=== PATIENT | female | born 1935 | race Caucasian/White ===

== ENCOUNTER 2018-11-18 23:58 | Inpatient (IN) | payer MEDICARE ==
[~2018-11-18] VITALS: Ht 154.9 cm; Wt 98.4 kg
--- NOTE | 2018-11-19 00:20 | NUR ---
BIB FROM HOME. AAOX4. NO RESP DISTRESS NOTED. BROUGHT W/ C/O WEAKNESS AND DIZZYNESS. PT REPORTS FEELING WEAK FOR THE PAST 2 DAYS, DIZZY WITH THE ROOM SPINNING AND PALPITATION. PT WAS REPORTED HYPOTENSIVE WITH LAST BP METAL SHAPING MACHINE OPERATOR 97/44. BP @ 103/47 UPON ASSESSMENT. PT RECEIVING 2ND BAG OF 500ML NS BY EMS. MD AT BEDSIDE FOR EVAL. EKG AT BEDSIDE. IV LINE ALREADY PRESENT UPPON ARRIVAL ON R AC 18G. BLOOD DRAWN AND GIVEN TO DRIVING INSTRUCTOR AT BEDSIDE. TO ER BED 8. PLACED ON MONITOR AND 02 @ 2LPM VIA NC.
[2018-11-19 00:23] LABS: BASOPHILS # (AUTO) 0.1 /CMM (0.0-0.2); BASOPHILS % (AUTO) 1.3 % (0.0-2.0); EOSINOPHILS % (AUTO) 2.3 % (0.0-6.0); HEMATOCRIT 41 % (33-45); HEMOGLOBIN 13.5 g/dL (11.5-14.8); LYMPHOCYTES # (AUTO) 1.6 /CMM (0.8-4.8); LYMPHOCYTES % (AUTO) 15.6 % (20.0-44.0); MEAN CORPUSCULAR HGB CONC 33 g/dl (31.0-36.0); MEAN CORPUSCULAR VOLUME 94 fL (82-100); MONOCYTES % (AUTO) 9.8 % (2.0-12.0); NEUTROPHILS # (AUTO) 7.5 /CMM (1.8-8.9); PLATELET COUNT (AUTO) 209 /CMM (150-450); RED BLOOD CELL COUNT(AUTO) 4.34 MIL/uL (4.0-5.2); WHITE BLOOD COUNT (AUTO) 10.5 K/uL (4.3-11.0)
--- NOTE | 2018-11-19 00:25 | NUR ---
PT BEING WHEELED TO RADILOGY ON [facility]
[2018-11-19] MEDS ORDERED: IV NS 0.9% 1,000 ML BAG IV ONE (00:30)
[2018-11-19 00:46] LABS: CALCIUM, SERUM 8.3 mg/dL (8.5-10.1); CARBON DIOXIDE 23 mmol/L (21-32); CHLORIDE 106 mmol/L (98-107); CREATININE 1.3 mg/dL (0.6-1.3); GLUCOSE 160 mg/dL (74-106); SODIUM SERUM 139 mmol/L (136-145); UREA NITROGEN, BLOOD 27 mg/dL (7-18)
[2018-11-19 00:50] LABS: ALANINE AMINOTRANSFERASE 28 U/L (12-78); ALBUMIN 3.1 g/dL (3.4-5.0); ALKALINE PHOSPHATASE 67 U/L (46-116); ASPARTATE AMINOTRANSFERASE 19 U/L (15-37); BILIRUBIN,DIRECT 0.1 mg/dL (0.0-0.2); BILIRUBIN,TOTAL 0.5 mg/dL (0.2-1.0); TOTAL PROTEIN, SERUM 5.8 g/dL (6.4-8.2)
--- NOTE | 2018-11-19 01:05 | NUR ---
CALLING STEVE RE: RADIOLOGY READ
[2018-11-19] MEDS ORDERED: Z GUARD REMEDY 2 OZ OINT TP PRN (02:00)
[2018-11-19] MEDS ORDERED: ONDANSETRON HCL/PF 4 MG/2 ML VIAL IVP PRN (02:00)
[2018-11-19] MEDS ORDERED: MAG HYDROX/AL HYDROX/SIMETH 30 ML UDC PO PRN (02:00)
--- NOTE | 2018-11-19 02:10 | NUR ---
URINE COLLECTED FROM PT. PT URINATED IN BEDSIDE COMMODE. PT TRANSFERED FROM BED TO COMMODE WITH STAND BY ASSIST. PT NOTED WITH STEADY GAIT. MADE AWARE
--- NOTE | 2018-11-19 02:11 | NUR ---
PT ASSIGNED TO 103
--- NOTE | 2018-11-19 02:13 | NUR ---
CALLED FOR REPORT. NURSE TAKING PT WITH ANOTHER AT THE MOMENT, WILL CALL BACK AGAIN.
--- NOTE | 2018-11-19 02:14 | NUR ---
NO F/C DONE TO PT.
[2018-11-19 02:20] LABS: APPEARANCE,URINE CLEAR (CLEAR); BILIRUBIN,URINE NEGATIVE (NEGATIVE); BLOOD, URINE NEGATIVE Ery/uL (NEGATIVE); COLOR,URINE YELLOW (YELLOW); KETONES,URINE NEGATIVE (NEGATIVE); LEUKOCYTE ESTERASE ,URINE TRACE (NEGATIVE); NITRITE, URINE NEGATIVE (NEGATIVE); PROTEIN,URINE NEGATIVE (NEGATIVE); UGLUCOSE NEGATIVE (NEGATIVE); UROBILINOGEN,URINE 0.2 EU/dL (0.2)
--- NOTE | 2018-11-19 02:22 | NUR ---
REPORT GIVEN TO ALIDA TOSCANO FOR CHRISTA
--- NOTE | 2018-11-19 03:13 | NUR ---
PT TRANSPORTED TO UNIT WITH RN AND EMT AT BEDSIDE W/ ACLS PROTOCOL. NAD DURING TRANSPORT. PT AMBULATED WITH SBA TO BATHROOM UPON ARRIVAL TO UNIT.
[2018-11-19 03:31] LABS: BACTERIA,URINE Few /HPF (None Seen); RBC,URINE 0-2 /HPF (0-2); SQUAMOUS EPITHELIAL CELL,UR Few /HPF (None Seen)
[2018-11-19 04:00] VITALS: BP 181/88
[2018-11-19] MEDS: IV NS 0.9% 1,000 ML IV PRN (04:27)
--- NOTE | 2018-11-19 06:23 | NUR ---
RN NOTES ADMITTED PATIENT ON A STRETCHER FROM ER WITH DIAGNOSIS OF HYPOTENSION. ALERT AND ORIENTED, AMBULATORY BREATHING EVEN AND UNLABORED. O2 AT 2LPM VIA NASAL CANNULA TOLERATING. NO COMPLAINT OF PAIN OR DISCOMFORT. SKIN INTACT. NEEDS ATTENDED. KEPT CLEAN AND DRY. WILL ENDORSE TO AM SHIFT FOR CONTINUITY OF CARE.
[2018-11-19 06:27] LABS: BASOPHILS # (AUTO) 0.1 /CMM (0.0-0.2); BASOPHILS % (AUTO) 0.6 % (0.0-2.0); EOSINOPHILS % (AUTO) 3.1 % (0.0-6.0); HEMATOCRIT 41 % (33-45); HEMOGLOBIN 13.9 g/dL (11.5-14.8); LYMPHOCYTES # (AUTO) 1.5 /CMM (0.8-4.8); LYMPHOCYTES % (AUTO) 17.7 % (20.0-44.0); MEAN CORPUSCULAR HGB CONC 34 g/dl (31.0-36.0); MEAN CORPUSCULAR VOLUME 93 fL (82-100); MONOCYTES # (AUTO) 1.1 /CMM (0.1-1.30); MONOCYTES % (AUTO) 12.7 % (2.0-12.0); NEUTROPHILS # (AUTO) 5.5 /CMM (1.8-8.9); NEUTROPHILS % (AUTO) 65.9 % (43.0-81.0); PLATELET COUNT (AUTO) 161 /CMM (150-450); RED BLOOD CELL COUNT(AUTO) 4.43 MIL/uL (4.0-5.2); WHITE BLOOD COUNT (AUTO) 8.4 K/uL (4.3-11.0)
[2018-11-19 06:43] LABS: CALCIUM, SERUM 8.4 mg/dL (8.5-10.1); CARBON DIOXIDE 28 mmol/L (21-32); CHLORIDE 110 mmol/L (98-107); CREATININE 1.2 mg/dL (0.6-1.3); GLUCOSE 104 mg/dL (74-106); MAGNESIUM 2.1 mg/dL (1.8-2.4); PHOSPHORUS 3.8 mg/dL (2.5-4.9); POTASSIUM 4.7 mmol/L (3.5-5.1); SODIUM SERUM 145 mmol/L (136-145); UREA NITROGEN, BLOOD 22 mg/dL (7-18)
[2018-11-19 07:04] LABS: CHOLESTEROL 121 mg/dL (<200); HDL CHOLESTEROL 37 mg/dL (40-60); LDL 77 mg/dL (0-99); TRIGLYCERIDES 94 mg/dL (30-150)
--- NOTE | 2018-11-19 07:10 | NUR ---
MAT PUNCHER OPENING RECEIVED PT. A/OX4, NO ACUTE DISTRESS OR SOB NOTED. PATIENT FOUND TO HAVE BP OF 190/53. DENIES HEADACHE, NO S/S STROKE. TELE MONITOR ATTACHED, SINUS RHYTHM HR 76. 2L O2 VIA NC. R AC 18G IV C/D/I, INFUSING NS @75mL/HR. BED LOCKED, LOW, SIDE RAILS UPX2, WILL CONTINUE TO MONITOR.
[2018-11-19] MEDS ORDERED: CELE-85 PO (07:40)
[2018-11-19] MEDS ORDERED: BIMA2.5D5 EACHEYE (07:40)
[2018-11-19] MEDS ORDERED: DORZ10DR11 EACHEYE (07:40)
[2018-11-19] MEDS ORDERED: TRAV5DRO EACHEYE (07:40)
[2018-11-19] MEDS ORDERED: ATEN100T PO (07:40)
[2018-11-19] MEDS ORDERED: TIZA4TAB5 PO ×2 (07:40)
[2018-11-19] MEDS ORDERED: ZOLP5TAB8 PO (07:40)
[2018-11-19] MEDS ORDERED: LEVO50TA8 PO (07:40)
[2018-11-19] MEDS ORDERED: LOSA50TA39 PO (07:40)
[2018-11-19 08:00] VITALS: BP 190/53
[2018-11-19] MEDS: ENOXAPARIN SODIUM 40 MG/0.4 ML DISP.SYRIN SQ SCH (08:47)
--- NOTE | 2018-11-19 08:53 | NUR ---
BP 144/84
[2018-11-19] MEDS ORDERED: ASPIRIN 325 MG TABLET PO ONE (13:30)
--- NOTE | 2018-11-19 13:40 | NUR ---
TEXTED DR. MOHAMUD FOR MRI APPROVAL.
--- NOTE | 2018-11-19 13:40 | NUR ---
DR. MOHAMUD TEXTED BACK ON HOLD FOR NOW,HE WILL LET US KNOW.
--- NOTE | 2018-11-19 14:35 | NUR ---
MRI CHECKLIST COMPLETED
[2018-11-19] MEDS: CEFTRIAXONE 1 G in IV D5W 50 ML IV SCH (15:54)
[2018-11-19 16:00] VITALS: BP 164/48
[2018-11-19] MEDS: TIMOLOL MAL/DORZOLAM HCL OPHTH 10 ML BOTTLE EACHEYE SCH (17:00)
--- NOTE | 2018-11-19 19:25 | NUR ---
RN OPEN NOTES RECEIVED PATIENT AWAKE IN BED. A/OX4. NO SIGNS OF DISTRESS OR DISCOMFORT. BREATHING EVEN AND UNLABORED. IV ACCESS IN RAC WITH NS INFUSING, PATENT AND INTACT, NO SIGNS OF REDNESS OR INFILTRATION. BED IN LOW LOCKED POSITION WITH SIDE RAILS X2. CALL LIGHT WITHIN REACH. WILL CONTINUE TO MONITOR.
[2018-11-19 20:00] VITALS: BP 156/49
[2018-11-19] MEDS: LATANOPROST EYE DROP 0.005% 2.5 ML BOTTLE OP SCH (21:17)
[2018-11-20 04:00] VITALS: BP 165/56
--- NOTE | 2018-11-20 07:15 | NUR ---
MS RN OPENING RECEIVED PATIENT A/OX4, NO ACUTE DISTRESS OR SOB NOTED. ON ROOM AIR. BED ALARM ON AND AUDIBLE. IV SITE R AC C/D/I 18G INFUSING 75mL/HR, NO S/S INFILTRATION AT THIS TIME. PATIENT SMILE EQUAL, CULLET TRUCKER STRENGTH EQUAL, DENIES WEAKNESS ON ONE SIDE OF BODY. BP STABLE. BED LOCKED, LOW, SIDE RAILS UPX2, CALL LIGHT WITHIN REACH. WILL CONTINUE TO MONITOR
--- NOTE | 2018-11-20 07:30 | NUR ---
RECEIVED CRITICAL LAB RESULT OF GRAM POSITIVE RODS IN BLOOD CULTURE, DIRECTOR TRADING AUSTEN LOCKHART MADE AWARE
--- NOTE | 2018-11-20 07:38 | NUR ---
RN CLOSING NOTES PATIENT RESTING IN BED, EASILY AROUSABLE. A/OX4. NO SIGNS OF DISTRESS OR DISCOMFORT. BREATHING EVEN AND UNLABORED. IV ACCESS IN RAC WITH NS INFUSING, PATENT AND INTACT, NO SIGNS OF REDNESS OR INFILTRATION. ALL NEEDS MET. NO SIGNIFICANT CHANGES THROUGH THE NIGHT. BED IN LOW LOCKED POSITION WITH SIDE RAILS X2. CALL LIGHT WITHIN REACH. ENDORSED TO AM SHIFT FOR CHRISTA.
[2018-11-20 07:50] LABS: BASOPHILS # (AUTO) 0.1 /CMM (0.0-0.2); BASOPHILS % (AUTO) 0.7 % (0.0-2.0); EOSINOPHILS % (AUTO) 2.5 % (0.0-6.0); HEMATOCRIT 43 % (33-45); HEMOGLOBIN 14.1 g/dL (11.5-14.8); LYMPHOCYTES # (AUTO) 1.1 /CMM (0.8-4.8); LYMPHOCYTES % (AUTO) 12.3 % (20.0-44.0); MEAN CORPUSCULAR HGB CONC 33 g/dl (31.0-36.0); MEAN CORPUSCULAR VOLUME 93 fL (82-100); NEUTROPHILS # (AUTO) 6.5 /CMM (1.8-8.9); NEUTROPHILS % (AUTO) 73.5 % (43.0-81.0); PLATELET COUNT (AUTO) 189 /CMM (150-450); RED BLOOD CELL COUNT(AUTO) 4.57 MIL/uL (4.0-5.2); WHITE BLOOD COUNT (AUTO) 8.8 K/uL (4.3-11.0)
[2018-11-20 08:00] VITALS: BP 157/67
[2018-11-20 08:00] LABS: CALCIUM, SERUM 8.7 mg/dL (8.5-10.1); CARBON DIOXIDE 26 mmol/L (21-32); CHLORIDE 107 mmol/L (98-107); CREATININE 1.1 mg/dL (0.6-1.3); GLUCOSE 115 mg/dL (74-106); POTASSIUM 4.1 mmol/L (3.5-5.1); SODIUM SERUM 142 mmol/L (136-145); UREA NITROGEN, BLOOD 17 mg/dL (7-18)
[2018-11-20] MEDS: LEVOTHYROXINE SODIUM 50 MCG TABLET PO SCH (08:07)
[2018-11-20] MEDS: ASPIRIN 81 MG TAB.CHEW PO SCH (08:07)
[2018-11-20] MEDS: ENOXAPARIN SODIUM 40 MG/0.4 ML DISP.SYRIN SQ SCH (08:08)
[2018-11-20] MEDS: TIMOLOL MAL/DORZOLAM HCL OPHTH 10 ML BOTTLE EACHEYE SCH ×2 (08:08→19:49)
--- NOTE | 2018-11-20 09:00 | NUR ---
CALLED [facility] FOR BLOOD CULTURES, REQUESTED ID & SENSITIVITY PER AUSTEN HUTCHINSON ORDERED.
[2018-11-20] MEDS ORDERED: FEE PK DOSING 1 MIN EA MC ONE (11:16)
[2018-11-20] MEDS: VANCOMYCIN 500 MG in IV D5W 100 ML IV SCH ×2 (13:53→23:22)
[2018-11-20] MEDS: ACETAMINOPHEN 325 MG TABLET PO PRN (15:37)
[2018-11-20] MEDS: CEFTRIAXONE 1 G in IV D5W 50 ML IV SCH (15:54)
[2018-11-20 16:00] VITALS: BP 169/73
--- NOTE | 2018-11-20 19:08 | NUR ---
MS RN RECEIVE PT IN BED AWAKE A/O X 3, WATCHING TV, NO S/S OF DISTRESS, SAFETY MEASURES IN PLACE. WILL CONTINUE TO MONITOR
[2018-11-20] MEDS: IV NS 0.9% 1,000 ML IV PRN (20:26)
[2018-11-20 20:30] VITALS: BP 200/77
--- NOTE | 2018-11-20 20:30 | NUR ---
CHECKED BP 200/77 PAGED HOSPITALIST AWAITING CALL BACK FOR BP MED PRN PT NO S/S OF DISTRESS WILL CONT TO MONITOR
--- NOTE | 2018-11-20 21:00 | NUR ---
HOSPITALIST ENTERED ORDER FOR PRN SBP >160.
[2018-11-20] MEDS: hydrALAZINE HCL IV 20 MG VIAL IV PRN (21:06)
[2018-11-20] MEDS: LATANOPROST EYE DROP 0.005% 2.5 ML BOTTLE OP SCH (21:32)
[2018-11-20 22:00] VITALS: BP 155/70
[2018-11-20] MEDS: ZOLPIDEM TARTRATE 5 MG TABLET PO PRN (22:12)
--- NOTE | 2018-11-20 23:00 | NUR ---
MS RN PT C/O SOB CHECKED O2 SAT AT 98% ROOM AIR PT VERBALIZED "I THINK ITS MY HOSPITAL GOWN ITS SO TIGHT" KEPT COMFORTABLE, CHECKED VS STABLE. WILL CONT TO MTR
[2018-11-21 04:00] VITALS: BP 153/82
--- NOTE | 2018-11-21 06:17 | NUR ---
MS RN PT A/O X 3, RESPIRATIONS EVEN AND UNLABORED. 02 SAT AT 98%. ROOM AIR. SLEPT WELL THROUGHOUT THE NIGHT. NO SIGNIFICANT CHANGES THROUGHOUT THE SHIFT. NO SHORTNESS OF BREATH, KEPT CLEAN AND DRY AND COMFORTABLE. NEEDS ATTENDED AND ANTICIPATED, AM CARE RENDERED, OFFLOAD HEELS AND ELBOWS. NO C/O OF PAIN. SAFETY MEASURES AT ALL TIMES. ENDORSE TO THE NEXT SHIFT.
[2018-11-21 07:04] LABS: CALCIUM, SERUM 8.6 mg/dL (8.5-10.1); CARBON DIOXIDE 23 mmol/L (21-32); CHLORIDE 107 mmol/L (98-107); GLUCOSE 134 mg/dL (74-106); POTASSIUM 4.1 mmol/L (3.5-5.1); SODIUM SERUM 140 mmol/L (136-145); UREA NITROGEN, BLOOD 14 mg/dL (7-18)
--- NOTE | 2018-11-21 07:30 | NUR ---
RN NOTES RECEIVED PATIENT IN BED, A/A/OX4, ABLE TO MAKE NEEDS KNOWN. ON ROOM AIR, BREATHING UNLABORED, SATING WELL.WITH COMPLAINTS OF HEADACHE 3/10 AND DIFFICULTY HAVING BM- WAS ASKING FOR STOOL SOFTENER BUT IS REFUSING MILK OF MAGNESIA- WILL INFORM HOSPITALIST. IV ACCESS NOTED ON THE RAC G [address] AND INTACT, PATENT ON FLUSHING . DRESSING C/D/I, WITH ONGOING IVF OF NS AT 75CC/HR. PATIENT ENCOURAGE TO CALL FOR HELP/ ASSISTANCE. CALL LIGHT PLACED WITHIN REACH. PATIENT AMBULATORY WITH ASSISTIVE DEVICE AND MILD SUPERVISION. SAFETY MEASURES OBSERVED AND MAINTAINED, BED LOW AND LOCKED POSITIONED. WILL CONTINUE TO ANTICIPATE NEEDS AND MONITOR ACCORDINGLY
[2018-11-21 08:00] VITALS: BP 110/72
[2018-11-21] MEDS: ASPIRIN 81 MG TAB.CHEW PO SCH ×2 (08:45→09:00)
[2018-11-21] MEDS: ENOXAPARIN SODIUM 40 MG/0.4 ML DISP.SYRIN SQ SCH (08:45)
[2018-11-21] MEDS: LEVOTHYROXINE SODIUM 50 MCG TABLET PO SCH (08:45)
[2018-11-21] MEDS: LATANOPROST EYE DROP 0.005% 2.5 ML BOTTLE OP SCH ×2 (08:48→22:00)
[2018-11-21] MEDS: LACTOBACILLUS RHAMNOSUS GG 1 EACH CAP.SPRINK PO SCH ×2 (09:09→17:02)
[2018-11-21] MEDS: LIDOCAINE 5% (PATCH) 1 EA PATCH TP SCH (09:51)
[2018-11-21] MEDS: DOCUSATE SODIUM 100 MG CAPSULE PO SCH ×3 (09:51→23:48)
[2018-11-21] MEDS: TIMOLOL MAL/DORZOLAM HCL OPHTH 10 ML BOTTLE EACHEYE SCH ×3 (11:01→21:17)
[2018-11-21 12:00] VITALS: BP 113/88
[2018-11-21] MEDS: VANCOMYCIN 500 MG in IV D5W 100 ML IV SCH (12:19)
[2018-11-21] MEDS: CEFTRIAXONE 1 G in IV D5W 50 ML IV SCH (14:49)
[2018-11-21 16:00] VITALS: BP 120/80
--- NOTE | 2018-11-21 19:38 | NUR ---
RN NOTES' ENDORSED PATIENT FOR CONTINUITY OF CARE. NOT ON ANY FORM OF DISTRESS. NO ACUTE CHANGES WITHIN THIS SHIFT. ALL NURSING NEEDS ATTENDED AND MET. CALL LIGHT WITHIN REACH. SAFETY MEASURES IN PLACE AT ALL TIME
--- NOTE | 2018-11-21 19:41 | NUR ---
RN OPENING NOTES: PT A/O X 3, NO SIGNS OF SOB OR ACUTE DISTRESS UPON ARRIVAL OF INTRODUCTION TO PT. 02 SAT AT 98%. ROOM AIR. WILL KEEP KEPT CLEAN AND DRY AND COMFORTABLE. NEEDS ATTENDED AND ANTICIPATED, PM CARE WILL RENDERED ,. NO C/O OF PAIN. SAFETY MEASURES AT ALL TIMES. WILL CONTINUE TO MONITER. SAFETY MEASURES IN PLACE.
[2018-11-21 20:00] VITALS: BP 165/72
[2018-11-21] MEDS: VANCOMYCIN 0.75 GM in IV D5W 250 ML IV SCH (21:16)
[2018-11-21] MEDS: ZOLPIDEM TARTRATE 5 MG TABLET PO PRN (23:48)
[2018-11-22] VITALS: BP 165/72
--- NOTE | 2018-11-22 06:20 | NUR ---
RN CLOSING NOTES OPENING NOTES: PT A/O X 3, NO SIGNS OF SOB OR ACUTE DISTRESS UPON ARRIVAL OF INTRODUCTION TO PT. 02 SAT AT 98%. ROOM AIR. WILL KEEP KEPT CLEAN AND DRY AND COMFORTABLE. NEEDS ATTENDED AND ANTICIPATED, PM CARE WILL RENDERED ,. NO C/O OF PAIN. SAFETY MEASURES AT ALL TIMES. WILL CONTINUE TO MONITER. SAFETY MEASURES IN PLACE
[2018-11-22 07:18] LABS: BASOPHILS # (AUTO) 0.1 /CMM (0.0-0.2); BASOPHILS % (AUTO) 0.8 % (0.0-2.0); EOSINOPHILS % (AUTO) 2.3 % (0.0-6.0); HEMATOCRIT 46 % (33-45); HEMOGLOBIN 15.3 g/dL (11.5-14.8); LYMPHOCYTES # (AUTO) 1.1 /CMM (0.8-4.8); LYMPHOCYTES % (AUTO) 13.7 % (20.0-44.0); MEAN CORPUSCULAR HGB CONC 34 g/dl (31.0-36.0); MEAN CORPUSCULAR VOLUME 93 fL (82-100); MONOCYTES % (AUTO) 11.6 % (2.0-12.0); NEUTROPHILS # (AUTO) 5.9 /CMM (1.8-8.9); NEUTROPHILS % (AUTO) 71.6 % (43.0-81.0); PLATELET COUNT (AUTO) 208 /CMM (150-450); RED BLOOD CELL COUNT(AUTO) 4.92 MIL/uL (4.0-5.2); WHITE BLOOD COUNT (AUTO) 8.3 K/uL (4.3-11.0)
--- NOTE | 2018-11-22 07:30 | NUR ---
RN NOTES RECEIVED PATIENT IN BED, ON SITTING POSITION, A/A/O X4, NOT ON ANY FORM OF DISTRESS. NO COMPLAINTS OF PAIN. SAFETY MEASURES OBSERVED AND MAINTAINED. CALL LIGHT WITHIN REACH. WILL DO ROOM VISITS RANDOMLY AND ACCORDINGLY. WILL CONTINUE TO MONITOR AND ANTICIPATE NEEDS ACCORDINGLY
[2018-11-22] MEDS: LEVOTHYROXINE SODIUM 50 MCG TABLET PO SCH (07:37)
[2018-11-22 07:39] LABS: CALCIUM, SERUM 8.6 mg/dL (8.5-10.1); CARBON DIOXIDE 25 mmol/L (21-32); CHLORIDE 104 mmol/L (98-107); CREATININE 1.3 mg/dL (0.6-1.3); GLUCOSE 136 mg/dL (74-106); SODIUM SERUM 138 mmol/L (136-145); UREA NITROGEN, BLOOD 19 mg/dL (7-18)
[2018-11-22 08:00] VITALS: BP_SYST 137; BP_SYST 167; BP_DIAS 63; BP_DIAS 72
[2018-11-22] MEDS: ASPIRIN 81 MG TAB.CHEW PO SCH (09:00)
[2018-11-22] MEDS: DOCUSATE SODIUM 100 MG CAPSULE PO SCH (09:12)
[2018-11-22] MEDS: LACTOBACILLUS RHAMNOSUS GG 1 EACH CAP.SPRINK PO SCH ×2 (09:12→17:34)
[2018-11-22] MEDS: LIDOCAINE 5% (PATCH) 1 EA PATCH TP SCH (09:12)
[2018-11-22] MEDS: ENOXAPARIN SODIUM 40 MG/0.4 ML DISP.SYRIN SQ SCH (09:15)
[2018-11-22] MEDS: VANCOMYCIN 0.75 GM in IV D5W 250 ML IV SCH ×2 (10:04→20:40)
[2018-11-22] MEDS ORDERED: LIDO30AD10 TP (13:05)
[2018-11-22] MEDS ORDERED: DOCU-270 PO (13:05)
[2018-11-22] MEDS ORDERED: ASPI-1169 PO (13:05)
[2018-11-22] MEDS ORDERED: ATOR40TA PO (13:12)
--- NOTE | 2018-11-22 13:30 | NUR ---
RN NOTES WENT TO BEDSIDE TO INFORM PATIENT REGARDING DISCHARGE ORDER FROM Janna LOCKHART NP. PATIENT NODED WITH SOB AND WAS TALKING ABOUT NOT BEING ABLE TO MOVE HER BOWEL WHEN SHE BLURRED OUT THAT SHE TRIED TO SCOOPED OUT HER BM WITH TEASPOON HANDLE IN HOPE TO GET IT OUT. RICHY Clark ALSO AT THE ROOM AT THIS SIDE AND HEARD THE CONVERSATION, LATER TALKED OUT ON THE PATIENT. MEANWHILE, PATIENT ASSESS FOR BLEEDING ON THE RECTUM, NONE AT THIS TIME. SMALL AMOUNT OF BLOOD STINTED [place] ON THE TOLIET BOWL, SPOON IS FOUND IN THE RESTROOM, INTACT, TAKEN OUT OF THE ROOM. HOSPITALIST WITH ORDERS FOR CT SCAN AND PSYCH CONSULT. ORDERS NOTED AND CARRIED OUT. DISCHARGE ORDERS HAS BEEN PLACE ON HOLD TEMPORARILY.
[2018-11-22] MEDS: CEFTRIAXONE 1 G in IV D5W 50 ML IV SCH (15:56)
[2018-11-22 16:00] VITALS: BP_SYST 128; BP_SYST 175; BP_DIAS 80
[2018-11-22] MEDS: TIMOLOL MAL/DORZOLAM HCL OPHTH 10 ML BOTTLE EACHEYE SCH (17:37)
--- NOTE | 2018-11-22 18:00 | NUR ---
RN NOTES PATIENT VERBALIZED FRUSTRATION ON NOT BEING ABLE TO MOVE BOWEL STILL, WITH COMPLAINTS OF PAIN IN THE RECTUM, NO BLEEDING NOTED THOUGH. AUSTEN LOCKHART NP PAGED IN HOPE TO OBTAIN ORDER FOR ENEMA OR SUPPOSITORY BUT PER LATER DIDNT GIVE ANY SINCE CT ABDOMEN IS NOT AVAILABLE STILL. PATIENT INFORMED AND VERBALIZED UNDERSTANDING
[2018-11-22] MEDS: hydrALAZINE HCL IV 20 MG VIAL IV PRN (19:54)
[2018-11-22 20:00] VITALS: BP 192/80
[2018-11-22] MEDS ORDERED: NA PHOS,M-B/NA PHOS,DI-BA 1 EA ENEMA RC ONE (20:00)
--- NOTE | 2018-11-22 20:00 | NUR ---
RN NOTE BLOOD PRESSURE OF 192/80 NOTED, HYDRALAZINE 10 MG IV GIVEN PER ORDER
--- NOTE | 2018-11-22 20:10 | NUR ---
RN NOTE PATIENT HAD BOWEL MOVEMENT, NO S/S OF BLEEDING NOTED, FORMED/LARGE
[2018-11-22 21:00] VITALS: BP 156/80
--- NOTE | 2018-11-22 21:00 | NUR ---
RN NOTE BP 156/81
[2018-11-22] MEDS: LATANOPROST EYE DROP 0.005% 2.5 ML BOTTLE OP SCH (21:13)
--- NOTE | 2018-11-22 22:12 | NUR ---
RN NOTE MUSCLE SPASMS NOTED IN UPPER AND LOWER EXTREMITY, NOTIFIED LENY RUSH, NEW ORDER IS GIVEN AND CARRIED OUT
[2018-11-22] MEDS ORDERED: TIZANIDINE HCL 4 MG TABLET PO SCH (22:30)
[2018-11-22] MEDS: ZOLPIDEM TARTRATE 5 MG TABLET PO PRN (22:34)
[2018-11-23 04:00] VITALS: BP 143/73
[2018-11-23] MEDS: LEVOTHYROXINE SODIUM 50 MCG TABLET PO SCH (07:19)
[2018-11-23 08:00] VITALS: BP 190/92
--- NOTE | 2018-11-23 08:00 | NUR ---
MS RN NOTE PATIENT IN BED , ALERT , ORIENTED , NO SOB NOTED, NO C\O PAIN AT THIS TIME , LT FA HL INTACT , BED IN LOWEST AND LOCKED POSITION , POLLO L.LIGHT WITHIN REACH , WILL CONT TO MONITOR CLOSELY
[2018-11-23 08:12] LABS: CALCIUM, SERUM 8.6 mg/dL (8.5-10.1); CARBON DIOXIDE 24 mmol/L (21-32); CHLORIDE 106 mmol/L (98-107); CREATININE 1.2 mg/dL (0.6-1.3); GLUCOSE 132 mg/dL (74-106); POTASSIUM 3.9 mmol/L (3.5-5.1); SODIUM SERUM 141 mmol/L (136-145); UREA NITROGEN, BLOOD 16 mg/dL (7-18)
[2018-11-23] MEDS: LACTOBACILLUS RHAMNOSUS GG 1 EACH CAP.SPRINK PO SCH (08:50)
[2018-11-23] MEDS: DOCUSATE SODIUM 100 MG CAPSULE PO SCH (08:50)
[2018-11-23] MEDS: TIMOLOL MAL/DORZOLAM HCL OPHTH 10 ML BOTTLE EACHEYE SCH (08:51)
[2018-11-23] MEDS: hydrALAZINE HCL IV 20 MG VIAL IV PRN (08:52)
[2018-11-23] MEDS: ASPIRIN 81 MG TAB.CHEW PO SCH (08:55)
[2018-11-23] MEDS: ENOXAPARIN SODIUM 40 MG/0.4 ML DISP.SYRIN SQ SCH (08:57)
[2018-11-23] MEDS: LIDOCAINE 5% (PATCH) 1 EA PATCH TP SCH (09:00)
[2018-11-23] MEDS: VANCOMYCIN 0.75 GM in IV D5W 250 ML IV SCH (09:10)
--- NOTE | 2018-11-23 09:56 | NUR ---
MS TN NOTE SEEN BY PT ,ABLE TO AMBULATE WELL WITH WALKER
--- NOTE | 2018-11-23 10:34 | NUR ---
MS RN NOTE SPOKE WITH AUSTEN TALBERT RN SOUVENIR AND NOVELTY MAKER NOTIFIED THAT EARLIER BP WAS 190/920 HYDRALAZINE 10 MG WAS GIVEN , ALSO ORDERED D\C ALL ATB OK TO START ON [place] AND OK TO HAVE COLACE 200 MG PO ,ORDER CARRIED OUT, AWAITING FOR PSYCH EVAL
[2018-11-23 11:47] VITALS: BP 151/76
--- NOTE | 2018-11-23 11:57 | NUR ---
MS RN NOTE CALLED TO [facility] NOTIFIED THAT PATIENT HAS PSYCH EVAL WITH DR GRANDE , FAXED FACE SHEET RO [facility]
[2018-11-23] MEDS: ACETAMINOPHEN 325 MG TABLET PO PRN (13:30)
--- NOTE | 2018-11-23 13:32 | NUR ---
ms rn note c\o headache tylenol po given will f\u
--- NOTE | 2018-11-23 14:30 | NUR ---
ms rn note per Chao davies rn speech therapist ok to discharge home if ok with cigar head holer, dr Toño davenport bedside examined patient ok to discharge home
--- NOTE | 2018-11-23 15:51 | NUR ---
MS RN NOTE DISCHARGE PATENT HOME. HOME INSTRUCTION GIVEN .UNDERSTAND , PX GIVEN AND CALLED [facility] TO SUBMIT MEDICATION , PATIENT REFUSED TO HAVE COLACE AND ASA AND ATORVASTATIN , SPOKE WITH [facility] PHARMACIST , MURRAY ON LT FA REMOVED , NO BLEEDING NOTED , INSTRUCTED TO FOLLOW UP WITH PRIMARY DOCTOR , INSTRUCTED HOW TO TAKE HOME MEDS AND POSSIBLE SIDE EFFECTS ,BELONGING SIGNED , HOSPITAL CLOTHES GIVEN , KISHAN NATURAL HISTORY COLLECTIONS CURATOR GAVE TO PATIENT , SPOKE WITH NURSING TICKET ATTENDANT, TAXI VOUCHER GIVEN TO PATIENT, WENT HOME WITH STABLE CONDITION , TAKEN TO LOBBY ON W\C, STOCK HOLDER INSTRUCTED ABOUT PATIENT ADDRESS
[2018-11-24] MEDS ORDERED: LOSARTAN POTASSIUM 50 MG TABLET PO SCH (09:00)
[2018-11-24] MEDS ORDERED: DOCUSATE SODIUM 100 MG CAPSULE PO SCH (09:30)
== END 2018-11-23 15:00 | disposition home health service (06) | DRG 918 ==
LOC: ER 11-19 00:02 → TELE1 11-19 02:50 → MEDSG1 11-19 09:50
PROVIDERS: ADMIT Nurse Practitioner Acute Care; ATTEND Nurse Practitioner Acute Care
DX: T42.8X1A Poisoning by antiparkinsonism drugs and other central muscle-tone depressants, accidental (unintentional), initial encounter (principal); N39.0 Urinary tract infection, site not specified; Z68.41 Body mass index [BMI] 40.0-44.9, adult; E86.0 Dehydration; T42.6X1A Poisoning by other antiepileptic and sedative-hypnotic drugs, accidental (unintentional), initial encounter; Z86.73 Personal history of transient ischemic attack (TIA), and cerebral infarction without residual deficits; I10 Essential (primary) hypertension; E11.9 Type 2 diabetes mellitus without complications; M79.7 Fibromyalgia; Y92.009 Unspecified place in unspecified non-institutional (private) residence as the place of occurrence of the external cause; M19.90 Unspecified osteoarthritis, unspecified site; G89.29 Other chronic pain; E66.9 Obesity, unspecified; R55 Syncope and collapse; I95.9 Hypotension, unspecified; Z87.11 Personal history of peptic ulcer disease; K04.7 Periapical abscess without sinus; F43.20 Adjustment disorder, unspecified; K59.00 Constipation, unspecified
CPT/HCPCS: 36415; 70450-TC; 70551-TC; 71045-TC; 80048-TC; 80061-TC; 80076-TC; 80202-TC; 81000-TC; 83605-TC; 83735-TC; 84100-TC; 84484-TC; 85025-TC; 85730-TC; 87040-TC; 87081-TC; 87086-TC; 87186-TC; 93307-TC; 93880-TC; 97116-TC; 97530-TC; A6253; G0378; J0360; J0696; J1650; J2405; J3370; J7030; J7060

== ENCOUNTER 2019-07-18 18:14 | Emergency (ER) | payer MEDICARE ==
[~2019-07-18] VITALS: Ht 154.9 cm; Wt 95.7 kg
[~2019-07-18 18:14] MED LIST: ASPI-1169 PO; ATEN100T PO; ATOR40TA PO; BIMA2.5D5 EACHEYE; CELE-85 PO; DOCU-270 PO; DORZ10DR11 EACHEYE; LEVO50TA8 PO; LIDO30AD10 TP; LOSA50TA39 PO; TIZA4TAB5 PO; TRAV5DRO EACHEYE; ZOLP5TAB8 PO
--- NOTE | 2019-07-18 18:18 | NUR ---
BIBRA 89 FROM HOME, C/O R ARM, L LEG, BACK, NECK AND BUTTOCK PAIN; SHE WOKE UP WITH PAIN THIS MORNING, BS= 105 MG/DL, TO ER BED 10, HOOKED TO MONITOR, CHANGED TO HOSP GOWN, PROVIDED W WARM BLANKET, PATIENT AOx3, NOTED WITH STUTTERING, BREATHING EVEN AND UNLABORED.
--- NOTE | 2019-07-18 18:27 | NUR ---
DR KOWALSKI AT BEDSIDE
[2019-07-18 18:52] LABS: BASOPHILS # (AUTO) 0.1 /CMM (0.0-0.2); BASOPHILS % (AUTO) 0.9 % (0.0-2.0); EOSINOPHILS % (AUTO) 4.6 % (0.0-6.0); HEMATOCRIT 36 % (33-45); LYMPHOCYTES # (AUTO) 1.1 /CMM (0.8-4.8); LYMPHOCYTES % (AUTO) 14.1 % (20.0-44.0); MEAN CORPUSCULAR HGB CONC 33 g/dl (31.0-36.0); MEAN CORPUSCULAR VOLUME 93 fL (82-100); MONOCYTES # (AUTO) 1.3 /CMM (0.1-1.30); MONOCYTES % (AUTO) 17.5 % (2.0-12.0); NEUTROPHILS # (AUTO) 4.8 /CMM (1.8-8.9); NEUTROPHILS % (AUTO) 62.9 % (43.0-81.0); PLATELET COUNT (AUTO) 222 /CMM (150-450); RED BLOOD CELL COUNT(AUTO) 3.87 MIL/uL (4.0-5.2); WHITE BLOOD COUNT (AUTO) 7.6 K/uL (4.3-11.0)
[2019-07-18 19:05] LABS: CALCIUM, SERUM 7.8 mg/dL (8.5-10.1); CARBON DIOXIDE 23 mmol/L (21-32); CHLORIDE 112 mmol/L (98-107); CREATININE 1.2 mg/dL (0.6-1.3); GLUCOSE 100 mg/dL (74-106); SODIUM SERUM 142 mmol/L (136-145); UREA NITROGEN, BLOOD 24 mg/dL (7-18)
[2019-07-18 19:10] LABS: ALANINE AMINOTRANSFERASE 18 U/L (12-78); ALBUMIN 2.8 g/dL (3.4-5.0); ALKALINE PHOSPHATASE 61 U/L (46-116); ASPARTATE AMINOTRANSFERASE 24 U/L (15-37); BILIRUBIN,DIRECT 0.1 mg/dL (0.0-0.2); BILIRUBIN,TOTAL 0.6 mg/dL (0.2-1.0); TOTAL PROTEIN, SERUM 5.4 g/dL (6.4-8.2)
[2019-07-18 19:15] LABS: EOSINOPHILS % (MANUAL) 6 % (0-4); LYMPHOCYTES % (MANUAL) 14 % (16-48); MONOCYTES % (MANUAL) 14 % (0-11.0); NEUTROPHILS % (MANUAL) 66 (42-76)
--- NOTE | 2019-07-18 19:18 | NUR ---
WHEELED OUT VIA RNEY FOR CT SCAN
--- NOTE | 2019-07-18 19:19 | NUR ---
REOPRT GIVEN TO DUNCAN IRWIN FOR CHRISTA
--- NOTE | 2019-07-18 20:10 | NUR ---
URINE COLLECTED AND SENT TO THE LAB
[2019-07-18 20:13] LABS: APPEARANCE,URINE Clear (CLEAR); BILIRUBIN,URINE Negative (NEGATIVE); BLOOD, URINE Negative Ery/uL (NEGATIVE); COLOR,URINE Yellow (YELLOW); KETONES,URINE Negative (NEGATIVE); LEUKOCYTE ESTERASE ,URINE Trace (NEGATIVE); NITRITE, URINE Negative (NEGATIVE); PROTEIN,URINE Trace mg/dl (NEGATIVE); UGLUCOSE Negative (NEGATIVE)
[2019-07-18 20:28] LABS: BACTERIA,URINE Few /HPF (None Seen); RBC,URINE 0-2 /HPF (0-2); SQUAMOUS EPITHELIAL CELL,UR Few /HPF (None Seen)
--- NOTE | 2019-07-18 21:05 | NUR ---
IV removed. Catheter intact and site benign. Pressure and 4x4 applied to site. No bleeding noted.
--- NOTE | 2019-07-18 21:10 | NUR ---
Patient discharged to home in stable condition. Written and verbal after care instructions given. Patient verbalizes understanding of instruction.
[2019-07-18 22:58] VITALS: BP 138/75
== END 2019-07-18 21:10 | disposition home or self-care (01) ==
LOC: ER 18:15
DX: R53.1 Weakness (principal); I10 Essential (primary) hypertension; E11.9 Type 2 diabetes mellitus without complications; I25.2 Old myocardial infarction; Z88.6 Allergy status to analgesic agent; Z60.2 Problems related to living alone; Z79.899 Other long term (current) drug therapy
CPT/HCPCS: 36415; 70450-TC; 71045-TC; 80048-TC; 80076-TC; 81000-TC; 84484-TC; 85025-TC

== ENCOUNTER 2019-09-22 16:56 | Emergency (ER) | payer MEDICARE ==
[~2019-09-22] VITALS: Ht 154.9 cm; Wt 93.4 kg
--- NOTE | 2019-09-22 17:06 | NUR ---
DR AGUILAR AT BEDSIDE FOR EVAL.
--- NOTE | 2019-09-22 17:20 | NUR ---
IV LINE STARTED BLOOD DRAWN AND SENT TO LAB.
[2019-09-22 17:27] LABS: BASOPHILS # (AUTO) 0.1 /CMM (0.0-0.2); BASOPHILS % (AUTO) 0.7 % (0.0-2.0); EOSINOPHILS % (AUTO) 2.9 % (0.0-6.0); HEMATOCRIT 42 % (33-45); HEMOGLOBIN 13.6 g/dL (11.5-14.8); LYMPHOCYTES # (AUTO) 1.2 /CMM (0.8-4.8); LYMPHOCYTES % (AUTO) 15.2 % (20.0-44.0); MEAN CORPUSCULAR HGB CONC 33 g/dl (31.0-36.0); MEAN CORPUSCULAR VOLUME 94 fL (82-100); MONOCYTES % (AUTO) 12.7 % (2.0-12.0); NEUTROPHILS # (AUTO) 5.4 /CMM (1.8-8.9); NEUTROPHILS % (AUTO) 68.5 % (43.0-81.0); PLATELET COUNT (AUTO) 216 /CMM (150-450); RED BLOOD CELL COUNT(AUTO) 4.45 MIL/uL (4.0-5.2); WHITE BLOOD COUNT (AUTO) 7.9 K/uL (4.3-11.0)
--- NOTE | 2019-09-22 17:35 | NUR ---
RADIOLOGY AT BEDSIDE FOR CHEST XRAY.
[2019-09-22 17:38] LABS: CALCIUM, SERUM 8.7 mg/dL (8.5-10.1); CARBON DIOXIDE 29 mmol/L (21-32); CHLORIDE 106 mmol/L (98-107); CREATININE 1.3 mg/dL (0.6-1.3); GLUCOSE 120 mg/dL (74-106); POTASSIUM 4.2 mmol/L (3.5-5.1); SODIUM SERUM 142 mmol/L (136-145); UREA NITROGEN, BLOOD 23 mg/dL (7-18)
--- NOTE | 2019-09-22 18:58 | NUR ---
Patient discharged to home in stable condition. Written and verbal after care instructions given. Patient verbalizes understanding of instruction.IV removed. Catheter intact and site benign. Pressure and 4x4 applied to site. No bleeding noted.
[2019-09-22 18:59] VITALS: BP 138/66
== END 2019-09-22 19:00 | disposition home or self-care (01) ==
LOC: ER 17:00
DX: R61 Generalized hyperhidrosis (principal); R53.1 Weakness; I10 Essential (primary) hypertension; E11.9 Type 2 diabetes mellitus without complications; Z88.5 Allergy status to narcotic agent; Z60.2 Problems related to living alone; Z79.899 Other long term (current) drug therapy; Z79.82 Long term (current) use of aspirin
CPT/HCPCS: 36415; 71045-TC; 80048-TC; 84484-TC; 85025-TC

== ENCOUNTER 2019-10-29 14:38 | Inpatient (IN) | payer MEDICARE ==
[~2019-10-29] VITALS: Ht 170.2 cm; Wt 89.4 kg
--- NOTE | 2019-10-29 14:47 | NUR ---
BARBARA 89 FROM HOME W C/O NAUSEA AND VOMITING WITH COFFEE GROUND EMESIS SINCE 1200. -TO ER BED 9, HOOKED TO MONITOR, CHANGED TO HOSP GOWN, WARM BLANKET PROVIDED, PATIENT AAO x 4, BREATHING EVEN AND UNLABORED.DR MCKNIGHT AT BEDSIDE
--- NOTE | 2019-10-29 14:47 | NUR ---
Note linnette in EDM - 10/29/19 at 1510 by ROSALINDA BIBRA 89 FROM HOME W C/O EPIGASTRIC PAIN FOR MORE THAN 1 MONTH, +NAUSEA AND NOTED W BLOOD TINGED EMESIS. -DIARRHEA, 7/10PS, TO ER BED 9, HOOKED TO MONITOR, CHANGED TO HOSP GOWN, WARM BLANKET PROVIDED, PATIENT AAO x 4, BREATHING EVEN AND UNLABORED.DR MCKNIGHT AT BEDSIDE
[2019-10-29] MEDS ORDERED: PANTOPRAZOLE 40 MG VIAL ONE (14:53)
[2019-10-29] MEDS ORDERED: PANTOPRAZOLE 40 MG VIAL IV ONE (15:00)
[2019-10-29] MEDS ORDERED: IV NS 0.9% 1,000 ML BAG IV ONE (15:00)
[2019-10-29 15:02] LABS: BASOPHILS # (AUTO) 0.1 /CMM (0.0-0.2); BASOPHILS % (AUTO) 0.7 % (0.0-2.0); EOSINOPHILS % (AUTO) 1.8 % (0.0-6.0); HEMATOCRIT 38 % (33-45); HEMOGLOBIN 12.2 g/dL (11.5-14.8); LYMPHOCYTES # (AUTO) 1.3 /CMM (0.8-4.8); LYMPHOCYTES % (AUTO) 9.5 % (20.0-44.0); MEAN CORPUSCULAR HGB CONC 32 g/dl (31.0-36.0); MEAN CORPUSCULAR VOLUME 94 fL (82-100); MONOCYTES # (AUTO) 0.8 /CMM (0.1-1.30); MONOCYTES % (AUTO) 5.9 % (2.0-12.0); NEUTROPHILS # (AUTO) 11.4 /CMM (1.8-8.9); NEUTROPHILS % (AUTO) 82.1 % (43.0-81.0); PLATELET COUNT (AUTO) 273 /CMM (150-450); RED BLOOD CELL COUNT(AUTO) 4.02 MIL/uL (4.0-5.2); WHITE BLOOD COUNT (AUTO) 13.9 K/uL (4.3-11.0)
[2019-10-29 15:10] LABS: CALCIUM, SERUM 8.3 mg/dL (8.5-10.1); CREATININE 1.3 mg/dL (0.6-1.3); POTASSIUM 5.5 mmol/L (3.5-5.1)
[2019-10-29 15:16] LABS: ALBUMIN 3.1 g/dL (3.4-5.0); BILIRUBIN,DIRECT 0.1 mg/dL (0.0-0.2); BILIRUBIN,TOTAL 0.6 mg/dL (0.2-1.0); TOTAL PROTEIN, SERUM 6.2 g/dL (6.4-8.2)
[2019-10-29] MEDS ORDERED: CT SWABBABLE VALVE TRANS SET 1 EA INFUS.SET MC ONE (15:22)
[2019-10-29] MEDS ORDERED: IOHEXOL-300 100 ML VIAL IV ONE (15:22)
[2019-10-29] MEDS ORDERED: IV NS 0.9% 250 ML IV ONE (15:23)
[2019-10-29] MEDS ORDERED: ONDANSETRON HCL/PF - ER 4 MG/2 ML VIAL IV ONE (15:30)
[2019-10-29] MEDS ORDERED: ONDANSETRON HCL/PF 4 MG/2 ML VIAL ONE (15:57)
[2019-10-29 16:00] VITALS: BP 146/77
--- NOTE | 2019-10-29 16:15 | NUR ---
CALLED [facility] PAGED DR VALDOVINOS
[2019-10-29] MEDS ORDERED: ONDANSETRON HCL/PF 4 MG/2 ML VIAL IVP PRN (16:30)
[2019-10-29] MEDS ORDERED: ZOLPIDEM TARTRATE 5 MG TABLET PO PRN ×2 (16:30)
[2019-10-29] MEDS ORDERED: ACETAMINOPHEN 325 MG TABLET PO PRN (16:30)
[2019-10-29] MEDS ORDERED: HYDROCODONE/APAP 5/325MG 1 EACH TABLET PO PRN (16:30)
[2019-10-29] MEDS ORDERED: Z GUARD REMEDY 2 OZ OINT TP PRN (16:30)
--- NOTE | 2019-10-29 16:48 | NUR ---
REPORT GIVEN TO MARIO IRWIN OF TELE UNIT
[2019-10-29] MEDS ORDERED: TIMOLOL MAL/DORZOLAM HCL OPHTH 10 ML BOTTLE EACHEYE SCH (17:00)
[2019-10-29] MEDS: TIZANIDINE HCL 4 MG TABLET PO SCH ×2 (18:00→18:39)
[2019-10-29] MEDS: DORZOLAMIDE OPTH 2% 10 ML BOTTLE EACHEYE SCH (18:17)
[2019-10-29] MEDS: TIMOLOL 0.5% SOLN OPHTH 5 ML BOTTLE EACHEYE SCH (18:17)
--- NOTE | 2019-10-29 18:42 | NUR ---
rn notes patient remains on room air, no sob noted, patient denies pain at this time. L AC with NS 75 ml per hour running. No skin issues at this time. Bed at the lowest setting, call light within reach, side rails up x2.
--- NOTE | 2019-10-29 19:20 | NUR ---
AUTOMATION SPECIALIST NOTES RECEIVED PT IN BED AWAKE AND ABLE TO MAKE NEEDS KNOWN. PT A/OX 3. RESPIRATIONS EVEN AND UNLABORED WITH NO S/S OF ACUTE DISTRESS OR SOB NOTED. NO COMPLAINTS OF PAIN AT THIS TIME. SAFETY MEASURES IN PLACE WITH BED IN LOWEST LOCKED POSITION WITH SIDE RAILS UP X2. CALL LIGHT WITHIN REACH. WILL CONTINUE TO MONITOR.
[2019-10-29 20:21] VITALS: BP 110/60
[2019-10-29] MEDS: IV NS 0.9% 1,000 ML IV PRN (22:21)
[2019-10-29] MEDS: LATANOPROST EYE DROP 0.005% 2.5 ML BOTTLE EACHEYE SCH (22:22)
[2019-10-30] VITALS (9 sets, daily range): BP systolic 79–149; BP diastolic 40–72
--- NOTE | 2019-10-30 03:30 | NUR ---
DIRECTOR INTELLIGENCE ANALYSIS PROGRAMS NOTES PT NOTED WITH STUTTERING SPEECH AND DROOPING FACE. HEATER ENGINEER HELPER CALLED. WILL CONTINUE TO MONITOR.
--- NOTE | 2019-10-30 03:35 | NUR ---
BINDERY SUPERVISOR NOTES CODE STROKE ACTIVATED WITH PHYSICIAN AT BEDSIDE. WILL CONTINUE TO MONITOR.
[2019-10-30 03:57] LABS: BASOPHILS # (AUTO) 0.1 /CMM (0.0-0.2); BASOPHILS % (AUTO) 0.6 % (0.0-2.0); EOSINOPHILS % (AUTO) 1.7 % (0.0-6.0); HEMATOCRIT 31 % (33-45); HEMOGLOBIN 10.4 g/dL (11.5-14.8); LYMPHOCYTES # (AUTO) 1.5 /CMM (0.8-4.8); LYMPHOCYTES % (AUTO) 15.9 % (20.0-44.0); MEAN CORPUSCULAR HGB CONC 34 g/dl (31.0-36.0); MEAN CORPUSCULAR VOLUME 92 fL (82-100); MONOCYTES # (AUTO) 1.3 /CMM (0.1-1.30); MONOCYTES % (AUTO) 13.6 % (2.0-12.0); NEUTROPHILS # (AUTO) 6.4 /CMM (1.8-8.9); NEUTROPHILS % (AUTO) 68.2 % (43.0-81.0); PLATELET COUNT (AUTO) 194 /CMM (150-450); RED BLOOD CELL COUNT(AUTO) 3.36 MIL/uL (4.0-5.2); WHITE BLOOD COUNT (AUTO) 9.3 K/uL (4.3-11.0)
[2019-10-30] MEDS ORDERED: DEXTROSE 50%-WATER 50 ML DISP.SYRIN IVP ONE (04:00)
--- NOTE | 2019-10-30 04:00 | NUR ---
TUNNEL DRIER OPERATOR SWITCH HOUSE OPERATOR ACTIVATED @ 0330. PT WAS ADMITTED TO TELE FLOOR ON 10.29.19. WITH DIAGNOSIS UPPER GI BLEED. PT IS AWAKE, ALERT, ORIENTED X 3. C/O HEADACHE, LEFT SIDE WEAKNESS. PT HAS SLURRED SPEECH, RIGHT FACIAL DROOP, LEFT ARM & LEG WEAKNESS. PUPILS ARE EQUAL & REACTIVE. ALL THOSE SYMPTOMS HAPPENED ACCORDING PRIMARY RN KENDRICK AFTER VISITING BATHROOM. ACCU CHECK DONE: BS 60. GIVEN D50 1 AMP. IVP. VSS, AFEBRILE, SCOPE-SR. ER MD MATAMOROS IS @ BEDSIDE. CODE STROKE WAS ACTIVATED @ 0335. D-R ANDONIAN WAS NOTIFIED. LAB WORK, EKG DONE. PT WAS SENT FOR CT HEAD WO CONTRAST. TELENEUROLOGY CONSULTATION REQUESTED.
[2019-10-30 04:04] LABS: CREATININE 1.2 mg/dL (0.6-1.3)
[2019-10-30] MEDS ORDERED: IOHEXOL-350 100 ML VIAL IV ONE (04:51)
[2019-10-30] MEDS ORDERED: ATORVASTATIN 40 MG TABLET PO SCH ×2 (05:00→09:00)
--- NOTE | 2019-10-30 05:00 | NUR ---
MAIL TRUCK DRIVER NOTES SWALLOW EVAL DONE. PT PASSED. WILL CONTINUE TO MONITOR.
[2019-10-30 06:45] LABS: BASOPHILS % (AUTO) 0.3 % (0.0-2.0); EOSINOPHILS % (AUTO) 1.5 % (0.0-6.0); HEMATOCRIT 31 % (33-45); HEMOGLOBIN 10.3 g/dL (11.5-14.8); LYMPHOCYTES # (AUTO) 1.1 /CMM (0.8-4.8); LYMPHOCYTES % (AUTO) 8.4 % (20.0-44.0); MEAN CORPUSCULAR HGB CONC 33 g/dl (31.0-36.0); MEAN CORPUSCULAR VOLUME 92 fL (82-100); MONOCYTES # (AUTO) 1.2 /CMM (0.1-1.30); MONOCYTES % (AUTO) 8.9 % (2.0-12.0); NEUTROPHILS # (AUTO) 10.8 /CMM (1.8-8.9); NEUTROPHILS % (AUTO) 80.9 % (43.0-81.0); PLATELET COUNT (AUTO) 207 /CMM (150-450); RED BLOOD CELL COUNT(AUTO) 3.39 MIL/uL (4.0-5.2); WHITE BLOOD COUNT (AUTO) 13.4 K/uL (4.3-11.0)
[2019-10-30 07:25] LABS: CALCIUM, SERUM 7.8 mg/dL (8.5-10.1); CREATININE 1.2 mg/dL (0.6-1.3); MAGNESIUM 2.1 mg/dL (1.8-2.4); PHOSPHORUS 3.2 mg/dL (2.5-4.9); POTASSIUM 3.9 mmol/L (3.5-5.1)
[2019-10-30 07:27] LABS: THYROID STIMULATING HORMONE 0.861 uIU/mL (0.358-3.74)
--- NOTE | 2019-10-30 07:43 | NUR ---
CANCELING MACHINE OPERATOR NOTES RECEIVED PT IN BED AWAKE AND ABLE TO MAKE NEEDS KNOWN. PT A/OX 3. RESPIRATIONS EVEN AND UNLABORED WITH NO S/S OF ACUTE DISTRESS OR SOB NOTED. NO COMPLAINTS OF PAIN AT THIS TIME. SAFETY MEASURES IN PLACE WITH BED IN LOWEST LOCKED POSITION WITH SIDE RAILS UP X2. CALL LIGHT WITHIN REACH. WILL CONTINUE TO MONITOR.
--- NOTE | 2019-10-30 07:52 | NUR ---
DEEP SEA DIVER NOTES PT WITH EKG 0350, BLOOD DRAWS DONE 0340, PT CENT TO CT 0354, PT RETURN FROM CT 0410, TELE MD STARTED 0410, NIHSS COMPLETE WITH TELE MD WITH SCORE [address] RESULTS RELAYED WITH WERE NEGATIVE @0445, SWALLOW EVAL COMPLETE AT 0500, PT GIVEN ATORVASTATIN 80MG PO 0501, PT TAKEN FOR CT ANGIO 0510, PT ARRIVED BACK FROM CT ANGIO 0540, MD MADE AWARE OF RESULTS FOR CT ANGIO WAS NEGATIVE 0630 MD CANCELED CODE STROKE, RELAYED RESULTS OF CT ANGIO TO TELE MD 0750.
--- NOTE | 2019-10-30 08:06 | NUR ---
RIBBON HANKING MACHINE OPERATOR NOTES PT IN BED AWAKE AND ABLE TO MAKE NEEDS KNOWN. PT A/OX 3. RESPIRATIONS EVEN AND UNLABORED WITH NO S/S OF ACUTE DISTRESS OR SOB NOTED AT THIS TIME. NO COMPLAINTS OF PAIN AT THIS TIME. SAFETY MEASURES IN PLACE WITH BED IN LOWEST LOCKED POSITION WITH SIDE RAILS UP X2. CALL LIGHT WITHIN REACH. WILL ENDORSE TO ONCOMING NURSE FOR CHRISTA.
--- NOTE | 2019-10-30 08:10 | NUR ---
GROUP UNDERWRITER NOTES PATIENT IN RESTING IN BED, ALERT AND ORIENTED X3, PATIENT WITH SOME SLURRED SPEECH NOTED. NO RESPIRATORY DISTRESS NOTED, NO C/O PAIN AT THIS TIME. PT A/OX 3. PATIENT ON FORMULA MIXER SR 98. SKIN WARM TO TOUCH, IV ACCESS SITE INTACT AND PATENT. PATIENT'S NEEDS ATTENDED, BED ON LOWEST LOCKED POSITION, CALL LIGHT WITHIN REACH. WILL CONTINUE TO MONITOR.
[2019-10-30] MEDS: TIMOLOL 0.5% SOLN OPHTH 5 ML BOTTLE EACHEYE SCH ×2 (08:55→18:19)
[2019-10-30] MEDS: DORZOLAMIDE OPTH 2% 10 ML BOTTLE EACHEYE SCH ×2 (08:55→18:19)
[2019-10-30] MEDS: PANTOPRAZOLE 40 MG VIAL IV SCH (08:55)
[2019-10-30] MEDS: LEVOTHYROXINE SODIUM 50 MCG TABLET PO SCH (08:56)
[2019-10-30] MEDS: LIDOCAINE 5% (PATCH) 1 EA PATCH TP SCH (08:57)
[2019-10-30] MEDS ORDERED: ANESTHESIA TRAY IN PYXIS 1 EA TRAY MC ONE (12:22)
[2019-10-30] MEDS: IV NS 0.9% 1,000 ML IV PRN ×2 (12:36→20:51)
--- NOTE | 2019-10-30 14:23 | NUR ---
PARTS MANAGER NOTES PATIENT CAME BACK FROM EGD, PATIENT WITH NO ACUTE DISTRESS NOTED. PER DR. DELGADO PATIENT CAN BE ON REGULAR DIET. ORDERS CARRIED OUT.
[2019-10-30] MEDS: TIZANIDINE HCL 4 MG TABLET PO SCH (18:18)
--- NOTE | 2019-10-30 19:40 | NUR ---
DRAWBENCH OPERATOR HELPER NOTES PATIENT AWAKE IN BED, NO RESPIRATORY DISTRESS, NO C/O PAIN AT THIS TIME. PATIENT ALERT AND ORIENTED X3, NO SLURRING NOTED BUT PATIENT STUTTERS AT TIMES. ABLE TO MOVE ALL EXTREMITIES WITHOUT DIFFICULTIES, NO DRIFT OBSERVED. SKIN WARM TO TOUCH, IV ACCESS SITE INTACT AND PATENT. PATIENT'S NEEDS ATTENDED, BED ON LOWEST LOCKED POSITION, CALL LIGHT WITHIN REACH. WILL ENDORSE TO ONCOMING NURSE.
--- NOTE | 2019-10-30 20:15 | NUR ---
RN NOTES: STROKE ASSESSMENT PERFORMED, NO FACIAL DROOP NOTED, PT STUTTERS WHEN SHE TALKS, A/O X3, BUT SOMEWHAT FORGETFUL, DISCUSS PLAN OF CARE TO PT. NIHSS SCORE OBTAINED IS 1.
--- NOTE | 2019-10-30 20:39 | NUR ---
RN NOTES: PAGED PINA MOE METAL PRODUCTS VIEWER
--- NOTE | 2019-10-30 20:45 | NUR ---
RN NOTES/EPIC MD CALL BACK: RECEIVED CALL FROM DR SAEED, RELAYED PT'S LOW BP, 79/43, HR 76 (LEFT ARM), RIGHT ARM CHECK 83/46 HR 70, MANUAL BP CHECK IS 80/40, PT A/O X4, ON 2L OXYGEN, BLOOD GLUCOSE CHECK 1235, PT RESPONSIVE, S/P CODE STROKE AT 0300AM, AND S/P EGD TODAY, H/H 10.08/29 , EGD SHOWS GASTRIC ULCER, PT ON IV PROTONIX PER GI MD, NO EPISODE OF VOMITING BLOOD, OR VOMITING ITSELF, PER MD TELEPHONE ORDER RECEIVED TO CHANGED IVF RATE TO NS AT 100ML/HR. ORDER READ BACK VERIFIED AND CARRIED OUT. BULK PLANT AGENT RIC AWARE OF EVENT.
[2019-10-30] MEDS: LATANOPROST EYE DROP 0.005% 2.5 ML BOTTLE EACHEYE SCH (21:00)
[2019-10-31] VITALS (9 sets, daily range): BP systolic 117–157; BP diastolic 55–67
--- NOTE | 2019-10-31 06:46 | NUR ---
end of shift report: received report from katarina rn at 1900 last night. pt remains a/o x3 forgetful at times, on 2l oxygen via nc, still stutters when talking/communicating, nihss score of 1, no facial droop noted, orthostatic bp obtained, iv access remains patent and flushing well, infusing with ns at 100ml/hr. no s/s of iv infiltration noted. tele monitoring sinus rhythm hr 81. no episode of vomiting, no bloody stool noted. for pt/st eval. remains afebrile. am care and complete linen change provided. vs remains stable, needs attended. safety precautions for fall remains engaged, call light in reach, will endorse to day rn for continuity of care.
[2019-10-31 07:04] LABS: BASOPHILS % (AUTO) 0.6 % (0.0-2.0); EOSINOPHILS % (AUTO) 3.5 % (0.0-6.0); HEMATOCRIT 27 % (33-45); HEMOGLOBIN 8.8 g/dL (11.5-14.8); LYMPHOCYTES # (AUTO) 1.3 /CMM (0.8-4.8); LYMPHOCYTES % (AUTO) 15.1 % (20.0-44.0); MEAN CORPUSCULAR HGB CONC 33 g/dl (31.0-36.0); MEAN CORPUSCULAR VOLUME 92 fL (82-100); MONOCYTES # (AUTO) 0.9 /CMM (0.1-1.30); MONOCYTES % (AUTO) 10.2 % (2.0-12.0); NEUTROPHILS # (AUTO) 6.3 /CMM (1.8-8.9); NEUTROPHILS % (AUTO) 70.6 % (43.0-81.0); PLATELET COUNT (AUTO) 175 /CMM (150-450); WHITE BLOOD COUNT (AUTO) 8.9 K/uL (4.3-11.0)
[2019-10-31 07:16] LABS: CALCIUM, SERUM 7.6 mg/dL (8.5-10.1); CREATININE 1.3 mg/dL (0.6-1.3); MAGNESIUM 1.9 mg/dL (1.8-2.4); POTASSIUM 4.1 mmol/L (3.5-5.1)
--- NOTE | 2019-10-31 08:00 | NUR ---
M/S RN NOTES PATIENT AWAKE IN BED, NO RESPIRATORY DISTRESS, NO C/O PAIN AT THIS TIME. SOLAR DESIGNER/INSTALLER REMOVED, PER DR. PENA PATIENT OK TO TRANSFER TO M/S. SKIN WARM TO TOUCH, IV ACCESS SITE INTACT AND PATENT. PATIENT'S NEEDS ATTENDED, BED ON LOWEST LOCKED POSITION, CALL LIGHT WITHIN REACH. WILL CONTINUE TO MONITOR.
[2019-10-31] MEDS: LEVOTHYROXINE SODIUM 50 MCG TABLET PO SCH (08:44)
[2019-10-31] MEDS: DORZOLAMIDE OPTH 2% 10 ML BOTTLE EACHEYE SCH ×2 (08:45→16:48)
[2019-10-31] MEDS: PANTOPRAZOLE 40 MG VIAL IV SCH (08:45)
[2019-10-31] MEDS: LIDOCAINE 5% (PATCH) 1 EA PATCH TP SCH (08:45)
[2019-10-31] MEDS: TIMOLOL 0.5% SOLN OPHTH 5 ML BOTTLE EACHEYE SCH ×2 (08:45→16:47)
--- NOTE | 2019-10-31 12:30 | NUR ---
M/S RN NOTES PER DR. CASON NO ORDER FOR STOOL OB.
--- NOTE | 2019-10-31 14:10 | NUR ---
STROKE ASSESSMENT: SW met with pt at bedside to complete the PhQ-9 and provide stroke education. HOwever, pt was lethargic and in pain and asked SW to come back tomorrow. SW will follow up tomorrow.
[2019-10-31] MEDS: IV NS 0.9% 1,000 ML IV PRN (16:46)
[2019-10-31] MEDS: TIZANIDINE HCL 4 MG TABLET PO SCH (17:53)
--- NOTE | 2019-10-31 18:58 | NUR ---
M/S RN NOTES PATIENT AWAKE IN BED, NO RESPIRATORY DISTRESS, NO C/O PAIN AT THIS TIME. PATIENT ALERT AND ORIENTED X3, NO SLURRING NOTED BUT PATIENT STUTTERS AT TIMES. ABLE TO MOVE ALL EXTREMITIES WITHOUT DIFFICULTIES, NO DRIFT OBSERVED. SKIN WARM TO TOUCH, IV ACCESS SITE INTACT AND PATENT. PATIENT'S NEEDS ATTENDED, BED ON LOWEST LOCKED POSITION, CALL LIGHT WITHIN REACH. WILL ENDORSE TO ONCOMING NURSE.
--- NOTE | 2019-10-31 20:00 | NUR ---
MS/RN OPENING NOTES RECEIVED PATIENT IN BED, AWAKE, ALERT X3, ABLE TO VERBALIZE NEEDS, RESPIRATIONS EVEN AND UNLABORED, WITH NEEDED OXYGEN. VERBALIZE NEEDS, REPORTED THAT SHE FEELS COLD AT NIGHT AND PREFERS TO HAVE WARM BLANKET AND ROOM TO BE WARM, ALSO, IV SITE ON DAYNA WITH REDNESS AND TO REINSERT ANOTHER ONE LATER PREFERED BY PATIENT , PATIENT PROVIDED AND HAVE SOME WATER, ABLE TO TOLERATE FLUIDS. .WILL MONITOR. PATIENT CAN MOVE BUE, AND ABLE TO SPEAK, REPORTED BLACK STOOL AND MD WAS MADE AWARE,.WILL CONTINUE TO MONITOR. RECEIVED ENDORSEMENT FROM AM RN FOR CHRISTA.
[2019-10-31] MEDS: LATANOPROST EYE DROP 0.005% 2.5 ML BOTTLE EACHEYE SCH (22:00)
--- NOTE | 2019-10-31 22:05 | NUR ---
MS/RN NOTES PATIENT IN BED ASLEEP, RESTING COMFORTABLY, EYE DROPS AT BEDSIDE, TO ADMINISTER ONCE PATIENT AWAKEN.
--- NOTE | 2019-11-01 06:45 | NUR ---
MS/RN NOTES MD SAEED MADE AWARE BLACK STOOL COLLECTED FOR OCCULT BLOOD ORDER.FAMILY REQUESTED AND PATIENT ASWELL WITH DX OF GI BLEEDING.
--- NOTE | 2019-11-01 06:50 | NUR ---
314-1 MS/RN NOTES PATIENT ALERT, ORIENTED X3, ABLE TO VERBALIZE NEEDS, KEPT COMFORTABLE, ON ROOM AIR WITH OXYGENATION OF 97%, DENIES ANY PAIN, PROVIDED AND OFFERED FLUIDS, ENCOURAGE WATER INTAKE. MONITORED FOR ANY CHANGES. BED LOCKED, CALL LIGHTS WITHIN REACH. WILL ENDORSE TO AM RN FOR CHRISTA.
[2019-11-01 06:56] LABS: BASOPHILS % (AUTO) 0.5 % (0.0-2.0); HEMATOCRIT 27 % (33-45); HEMOGLOBIN 8.8 g/dL (11.5-14.8); LYMPHOCYTES # (AUTO) 1.1 /CMM (0.8-4.8); LYMPHOCYTES % (AUTO) 14.3 % (20.0-44.0); MEAN CORPUSCULAR HGB CONC 33 g/dl (31.0-36.0); MEAN CORPUSCULAR VOLUME 92 fL (82-100); MONOCYTES # (AUTO) 0.7 /CMM (0.1-1.30); MONOCYTES % (AUTO) 8.6 % (2.0-12.0); NEUTROPHILS # (AUTO) 5.6 /CMM (1.8-8.9); NEUTROPHILS % (AUTO) 72.6 % (43.0-81.0); PLATELET COUNT (AUTO) 168 /CMM (150-450); RED BLOOD CELL COUNT(AUTO) 2.89 MIL/uL (4.0-5.2); WHITE BLOOD COUNT (AUTO) 7.7 K/uL (4.3-11.0)
[2019-11-01 07:25] LABS: ALBUMIN 2.7 g/dL (3.4-5.0); BILIRUBIN,TOTAL 0.3 mg/dL (0.2-1.0); CALCIUM, SERUM 8.1 mg/dL (8.5-10.1); CREATININE 1.3 mg/dL (0.6-1.3); MAGNESIUM 1.8 mg/dL (1.8-2.4); PHOSPHORUS 3.4 mg/dL (2.5-4.9); POTASSIUM 3.9 mmol/L (3.5-5.1); TOTAL PROTEIN, SERUM 5.3 g/dL (6.4-8.2)
--- NOTE | 2019-11-01 07:25 | NUR ---
MS RN NOTES RECEIVED PT SITTING AT THE EDGE OF THE BED, AWAKE, A/O X3-4. PT TOLERATING RA, WITH NO ACUTE RESPIRATORY DISTRESS NOTED. PT DENIES ANY PAIN OR DISCOMFORT AT THIS TIME. NO PIV NOTED, PER NIGHT NURSE PT REFUSED TO HAVE IT PLACED. PT KEPT COMFORTABLE, CALL LIGHT KEPT WITHIN REACH. PT'S BED IN LOWEST, LOCKED POSITION WITH SRX3. WILL CONTINUE PLAN OF CARE.
[2019-11-01 07:54] LABS: OCCULT BLOOD STOOL POSITIVE (NEGATIVE)
[2019-11-01 08:00] VITALS: BP 132/71
[2019-11-01] MEDS: LEVOTHYROXINE SODIUM 50 MCG TABLET PO SCH (08:13)
[2019-11-01] MEDS: LIDOCAINE 5% (PATCH) 1 EA PATCH TP SCH (08:13)
[2019-11-01] MEDS: PANTOPRAZOLE 40 MG VIAL IV SCH ×2 (08:23→09:00)
[2019-11-01] MEDS: TIMOLOL 0.5% SOLN OPHTH 5 ML BOTTLE EACHEYE SCH ×2 (08:31→17:11)
[2019-11-01] MEDS: DORZOLAMIDE OPTH 2% 10 ML BOTTLE EACHEYE SCH ×2 (08:32→17:11)
--- NOTE | 2019-11-01 09:30 | NUR ---
MS RN NOTES PT STILL PREFERS NOT TO HAVE IV INSERTED. SCHEDULED PROTONIX IV NOT GIVEN. PT PREFERS TO DRINK ORALLY. PT MADE AWARE OF RISKS AND BENEFITS. PER PT TO COME BACK LATER TO TRY. WILL CONTINUE TO MONITOR.
[2019-11-01] MEDS ORDERED: PANT40TA2 PO (11:13)
[2019-11-01] MEDS: IV NS 0.9% 1,000 ML IV PRN (12:55)
--- NOTE | 2019-11-01 13:03 | NUR ---
Social service consult requested by MD for stroke assessment. Per MD notes, pt is an 84-year-old brought in by ambulance to the ER for nausea and coffee-ground vomiting. She has history of peptic ulcer disease diagnosed few years ago after which she discontinued taking aspirin but started taking it back recently for cardiac prophylaxis. Pt has history of PUD, essential hypertension, Osteoarthritis, Hypo-thyroidism, Diabetes, diet controlled and Hyperlipidemia. NUISANCE WILDLIFE CONTROL OPERATOR conducted chart review and met with the pt. bedside. NUISANCE WILDLIFE CONTROL OPERATOR introduced self and purpose of the visit. Pt is alert and oriented x 4. Pt lives in an apartment in [place]. Pt reports, she has lived there for the past 40 years. Pt requested for SW can contact her apartment management company to inform that she is hospitalized. NUISANCE WILDLIFE CONTROL OPERATOR contacted her management company [employer] along with the pt bedside. NUISANCE WILDLIFE CONTROL OPERATOR informed the digital sales manager regarding pt's hospitalization. [employer] Worker assured the pt she will not be charged with a late fee since pt is going to a rehab facility short term. Pt has a daughter Carmenza Owens who resides in [facility] and she is her emergency contact. Pt last saw her daughter on 2018. Pt reports she has a history of stroke. Pt has a history of Depression and Anxiety and takes Prozac. Pt also has a [facility] SW Beth Broussard for the past year. Pt appears to have a very good relationship with her SW. Pt denies SI, HI and any history of substance use/abuse. NUISANCE WILDLIFE CONTROL OPERATOR conducted PHQ-9 intervention and pt scored a 2, not requiring psychiatric evaluation. Pt is independent with most ADLS and IADLS. Pt is ambulates with a walker. NUISANCE WILDLIFE CONTROL OPERATOR provided pt with active listening, emotional support, validation of feelings and positive coping skills. NUISANCE WILDLIFE CONTROL OPERATOR also provide pt information and brief education on Stroke. Pt was provided with Medical Government Relations Manager contact information. Government Relations Manager to remain available for support as needed.
--- NOTE | 2019-11-01 13:57 | NUR ---
MS RN NOTES PT TESTED FOR COVED19, PT SWABBED ORALLY TO THE BACK OF THE THROAT PER AUTO BODY TECHNICIAN INSTRUCTION. PT ASYMPTOMATIC, ALSO AWARE THE TEST IS FOR THE RECEIVING SNF FACILITY WELL. SPECIMEN SENT/DROPPED OFF AT THE LAB AT 1345.
[2019-11-01 16:00] VITALS: BP 128/69
--- NOTE | 2019-11-01 16:30 | NUR ---
MS RN NOTES PER PT'S REQUEST, WANTED TO HAVE ABREVA FOR COLD SORES. HOSPITALIST/KR MADE AWARE AND ORDER PLACED AND CARRIED OUT.
[2019-11-01] MEDS: TIZANIDINE HCL 4 MG TABLET PO SCH (17:11)
--- NOTE | 2019-11-01 17:16 | NUR ---
MS RN NOTES RECEIVED CALL FROM PHARMACIST/JIMMY. MILES WHEELER AVAILABAAGUSTIN AT THIS TIME, EARLIEST TIME FOR MEDICINE TO ARRIVE IS IN THE MORNING. PT MADE AWARE AND OKAY WITH IT. WILL ENDORSE TO INCOMING NIGHT NURSE WELL.
--- NOTE | 2019-11-01 17:57 | NUR ---
MS RN NOTES PER PT'S REQUEST TO REMOVE PIV. PER PT NO IVF, IV ANTIBIOTICS. IT ONLY BOTHERS HER AT TIS TIME, PREFERS TO REMOVE. RN EXPLAINED RISKS AND BENEFITS, INSIST TO REFUSE. WILL ENDORSE TO INCOMING NIGHT NURSE WELL. PIV TO LFA REMOVED AND APPLIED DRY DRESSING.
--- NOTE | 2019-11-01 18:38 | NUR ---
MS RN NOTES PT REMAINS IN BED, AWAKE, A/O X3-4. PT TOLERATING RA, WITH NO ACUTE RESPIRATORY DISTRESS NOTED. PT DENIES ANY PAIN OR DISCOMFORT AT THIS TIME. NO PIV PER PT'S PREFERENCE WELL. PT KEPT COMFORTABLE, CALL LIGHT KEPT WITHIN REACH. PT'S BED IN LOWEST, LOCKED POSITION WITH SRX3. ALL NEEDS AND CARE ATTENDED. WILL ENDORSE TO INCOMING NIGHT NURSE FOR CHRISTA.
[2019-11-01 19:40] VITALS: BP 110/58
--- NOTE | 2019-11-01 19:40 | NUR ---
MS/RN OPENING NOTES PATIENT CAN OPEN EYES BUT WEAK AND ABLE TO RESPOND WITH NAME BUT REPORTING FEELING WEAK ON UPPER EXTREMITIES AND UNABLE TO FOLLOW SIMPLE COMMANDS, PATIENT WAS ON THE PHONE WITH DAUGHTER LUIS AND TALKING BUT STUTERRING AND WITH SLURRED SPEACH, RAPID RESPONSE WAS CALLED FOR ASSISTANCE. PATIENT VITAL SIGNS INITIAL OF 80/40 AND RECHECKED AGAIN TO 110/58, NO IV ACCESS, OXYGENATION AT 100% IN 2 LITER NASAL CANULA, PULSE 68, ALL EXTREMITIES WEAK, PALE IN APPEARANCE AND CHARGE NURSE, AND RERECORDING MIXER , , PATIENT MYA.. WILL MONITOR. PATIENT WAS BROUGHT FOR CT. MD ABRAMS WAS CONTACTED.
[2019-11-01 20:00] VITALS: BP_SYST 110; BP_SYST 114; BP_DIAS 58; BP_DIAS 78
[2019-11-01 20:30] LABS: BASOPHILS # (AUTO) 0.1 /CMM (0.0-0.2); BASOPHILS % (AUTO) 0.6 % (0.0-2.0); EOSINOPHILS % (AUTO) 2.7 % (0.0-6.0); HEMATOCRIT 25 % (33-45); HEMOGLOBIN 8.5 g/dL (11.5-14.8); LYMPHOCYTES # (AUTO) 1.2 /CMM (0.8-4.8); LYMPHOCYTES % (AUTO) 11.3 % (20.0-44.0); MEAN CORPUSCULAR HGB CONC 34 g/dl (31.0-36.0); MEAN CORPUSCULAR VOLUME 92 fL (82-100); MONOCYTES # (AUTO) 0.9 /CMM (0.1-1.30); MONOCYTES % (AUTO) 9.2 % (2.0-12.0); NEUTROPHILS # (AUTO) 7.9 /CMM (1.8-8.9); NEUTROPHILS % (AUTO) 76.2 % (43.0-81.0); PLATELET COUNT (AUTO) 188 /CMM (150-450); WHITE BLOOD COUNT (AUTO) 10.3 K/uL (4.3-11.0)
[2019-11-01 20:36] LABS: CARBON DIOXIDE 28 mmol/L (21-32); CHLORIDE 107 mmol/L (98-107); CREATININE 1.5 mg/dL (0.6-1.3); GLUCOSE 137 mg/dL (74-106); SODIUM SERUM 141 mmol/L (136-145); UREA NITROGEN, BLOOD 18 mg/dL (7-18)
--- NOTE | 2019-11-01 21:00 | NUR ---
MS/RN NOTES MD NEUROLOGY DR. PRISCILLA COLEMAN NEUROLOGIST WAS ABLE TO ASSESS PATIENT ON CAMERA AND DETERMINED THAT IT IS NOT A STROKE BUT CLINICAL FINDINGS INSTEAD, MD ABRAMS AT BEDSIDE AND ORDERED FOR SWALLOWING TEST AND WHEN PATIENT SWALLOWED WITH A STRAW SHE COUGH. WITH ORDER TO COLLECT URINE USING STERILE PROCEDURE. ORDERED BY MD BABIN AND CARRIED OUT.PATIENT ABLE TO VERBALIZE NEEDS AND WHEN MD ABRAMS SAW HER SHE WAS ABLE TO HAVE A WIDE SMILE, AND TONGUE STICK OUT, WITH GOOD BAKER APPRENTICE AND STRONG LEGS, CAN RAISE HAND TOGETHER AT THE SAME TIME.
[2019-11-01] MEDS: LATANOPROST EYE DROP 0.005% 2.5 ML BOTTLE EACHEYE SCH (22:00)
--- NOTE | 2019-11-01 23:00 | NUR ---
MS/RN NOTES XALATAN EYE DROPS ON EACH EYE ADMINISTERED.
--- NOTE | 2019-11-01 23:30 | NUR ---
IV FLUID ORDERED BY MD ABRAMS WITH RATE OF 100 ML/HR, PATIENT ABLE TO HAVE MINIMAL FLUIDS INTAKE AT THIS TIME, AND FOR HYDRATION. ASSESS AND REASSESS ASPIRATION RISK FIRST COUGH AFTER SIP OF WATER AND IN A LITTLE WHILE ABLE TO TOLERATE PO FLUIDS AND ICE CHIPS.
--- NOTE | 2019-11-01 23:30 | NUR ---
MS/RN NOTES PATIENT CONTINUE TO BE MORE ALERT AND ORIENTED, VERBALIZED NEEDS AND REPORTED FEELING HUNGRY, REQUESTED FOR SOME SNACKS.AND ABLE TO DRINK FLUID. ON THE PHONE TALKING TO FAMILY MEMBERS DURING THE NIGHT. MORE RESPONSIVE, COOPERATIVE AND COMMUNICATES NEEDS AT ALL TIMES.
[2019-11-01 23:48] LABS: APPEARANCE,URINE CLEAR (CLEAR); BILIRUBIN,URINE NEGATIVE (NEGATIVE); BLOOD, URINE NEGATIVE Ery/uL (NEGATIVE); COLOR,URINE YELLOW (YELLOW); KETONES,URINE NEGATIVE (NEGATIVE); LEUKOCYTE ESTERASE ,URINE NEGATIVE (NEGATIVE); NITRITE, URINE NEGATIVE (NEGATIVE); PROTEIN,URINE 30 mg/dl (NEGATIVE); UGLUCOSE NEGATIVE (NEGATIVE); UROBILINOGEN,URINE 0.2 EU/dL (0.2)
[2019-11-02] MEDS ORDERED: IV NS 0.9% 1,000 ML IV SCH
[2019-11-02 00:01] LABS: BACTERIA,URINE Few /HPF (None Seen); RBC,URINE 0-2 /HPF (0-2); SQUAMOUS EPITHELIAL CELL,UR Few /HPF (None Seen)
--- NOTE | 2019-11-02 06:21 | NUR ---
PATIENT AWAITING FOR COVID RESULT, ON ISOLATION PRECAUTION FOR NOW RULE OUT FOR COVID FOR PLACEMET PROTOCOL.
--- NOTE | 2019-11-02 06:25 | NUR ---
314-1 MS/RN NOTES PATIENT ATTENDED TO ALL NEEDS AT ALL TIMES, MONITORED FOR SAFETY, ASPIRATIONS PRECAUTIONS AND KEPT COMFORTABLE. SLEPT FEW HOURS, PROVIDED FLUIDS AND SNACKS. ON IV FLUID AT 100 ML/HR, IV SITE ON RIGHT HAND PATENT.BED LOCKED, CALL LIGHTS WITHIN REACH. WILL ENDORSE TO AM RN FOR CHRISTA.
[2019-11-02 06:51] LABS: CALCIUM, SERUM 8.1 mg/dL (8.5-10.1); CREATININE 1.2 mg/dL (0.6-1.3)
[2019-11-02 06:55] LABS: MAGNESIUM 1.9 mg/dL (1.8-2.4); PHOSPHORUS 3.7 mg/dL (2.5-4.9)
--- NOTE | 2019-11-02 07:10 | NUR ---
MS RN NOTES RECEIVED PATIENT IN BED, ALERT AND AWAKE ORIENTED X4. NO SOB. DENIES ANY C/O PAIN NOR DISCOMFORT AT THIS TIME. RIGHT HAND # 22 INTACT AND PATENT INFUSING NS @ 100ML/HR SO WELL. BED IN LOWEST POSITION, LOCKED. BED ALARM ON. CALL LIGHT WITHIN REACH. ABLE TO VERBALIZE NEEDS.
[2019-11-02] MEDS ORDERED: IV NS 0.9% 1,000 ML IV PRN (07:55)
[2019-11-02 08:00] VITALS: BP 121/59
[2019-11-02] MEDS: LEVOTHYROXINE SODIUM 50 MCG TABLET PO SCH (08:12)
[2019-11-02] MEDS: LIDOCAINE 5% (PATCH) 1 EA PATCH TP SCH (08:13)
[2019-11-02] MEDS: PANTOPRAZOLE 40 MG VIAL IV SCH (08:13)
[2019-11-02] MEDS: DORZOLAMIDE OPTH 2% 10 ML BOTTLE EACHEYE SCH ×2 (08:24→17:00)
[2019-11-02] MEDS ORDERED: [UNRECOGNIZED DRUG - OTHER] TP PRN (09:00)
[2019-11-02] MEDS: TIMOLOL 0.5% SOLN OPHTH 5 ML BOTTLE EACHEYE SCH ×2 (09:00→17:00)
[2019-11-02 09:04] LABS: BASOPHILS # (AUTO) 0.1 /CMM (0.0-0.2); BASOPHILS % (AUTO) 0.6 % (0.0-2.0); EOSINOPHILS % (AUTO) 3.1 % (0.0-6.0); HEMATOCRIT 29 % (33-45); HEMOGLOBIN 9.6 g/dL (11.5-14.8); LYMPHOCYTES # (AUTO) 1.2 /CMM (0.8-4.8); MEAN CORPUSCULAR HGB CONC 33 g/dl (31.0-36.0); MEAN CORPUSCULAR VOLUME 93 fL (82-100); MONOCYTES # (AUTO) 0.7 /CMM (0.1-1.30); MONOCYTES % (AUTO) 7.1 % (2.0-12.0); NEUTROPHILS # (AUTO) 7.7 /CMM (1.8-8.9); NEUTROPHILS % (AUTO) 77.2 % (43.0-81.0); PLATELET COUNT (AUTO) 211 /CMM (150-450); RED BLOOD CELL COUNT(AUTO) 3.17 MIL/uL (4.0-5.2)
[2019-11-02 16:00] VITALS: BP 125/57
[2019-11-02] MEDS: TIZANIDINE HCL 4 MG TABLET PO SCH (18:42)
--- NOTE | 2019-11-02 19:44 | NUR ---
MS RN NOTES ALERT AND ORIENTED X4. HOB ELEVATED. DENIES ANY C/O PAIN NOR DISCOMFORT AT THIS TIME. NO S/S OF RESPIRATORY DISTRESS. FOR DISCHARGE. DISCHARGE INSTRUCTION GIVEN TO PATIENT, DTR AND SNF RN DURING REPORT GIVEN. ALL BELONGINGS ACCOUNTED FOR. IV ACCESS REMOVED WITH CATHETER TIP INTACT WITH GAUZE DRESSING DRESSING IN PLACE. DENIES NAY C/O PAIN NOR DISCOMFORT AT THIS TIME. DTR AWARE OF TRANSFER TO [facility]. AMBULATORY WITH STEADY GAIT. PATIENT SHOWERED PRIOR TO DISCHARGE SO WELL. PATIENT PICKED UP BY AMBULANCE ACCOMPANIED BY 2 EMT AND LEFT IN STABLE CONDITION VIA [place].
== END 2019-11-02 21:30 | DRG 377 ==
LOC: ER 14:42 → TELE 16:51 → MED 10-31 11:38
PROVIDERS: ATTEND Internal Medicine
PROC: 0DB58ZX Excision of Esophagus, Via Natural or Artificial Opening Endoscopic, Diagnostic (ICD-10-PCS; principal; 2019-10-30)
PROC: 0DB68ZX Excision of Stomach, Via Natural or Artificial Opening Endoscopic, Diagnostic (ICD-10-PCS; 2019-10-30)
DX: K25.4 Chronic or unspecified gastric ulcer with hemorrhage (principal); I21.4 Non-ST elevation (NSTEMI) myocardial infarction; N17.9 Acute kidney failure, unspecified; K22.70 Barrett's esophagus without dysplasia; I25.10 Atherosclerotic heart disease of native coronary artery without angina pectoris; E78.5 Hyperlipidemia, unspecified; E03.9 Hypothyroidism, unspecified; Z87.11 Personal history of peptic ulcer disease; Z90.710 Acquired absence of both cervix and uterus; Z95.1 Presence of aortocoronary bypass graft; N18.9 Chronic kidney disease, unspecified; M19.90 Unspecified osteoarthritis, unspecified site; I12.9 Hypertensive chronic kidney disease with stage 1 through stage 4 chronic kidney disease, or unspecified chronic kidney disease; E11.22 Type 2 diabetes mellitus with diabetic chronic kidney disease; Z79.1 Long term (current) use of non-steroidal anti-inflammatories (NSAID); I95.9 Hypotension, unspecified; Z79.82 Long term (current) use of aspirin; R29.810 Facial weakness; Z83.3 Family history of diabetes mellitus; Z86.73 Personal history of transient ischemic attack (TIA), and cerebral infarction without residual deficits; R40.2412 Glasgow coma scale score 13-15, at arrival to emergency department; R29.701 NIHSS score 1; K29.71 Gastritis, unspecified, with bleeding
CPT/HCPCS: 36415; 70450-TC; 70496-TC; 70498-TC; 71045-TC; 80048-TC; 80053-TC; 80061-TC; 80076-TC; 81000-TC; 82272-TC; 82962-TC; 83540-TC; 83690-TC; 83735-TC; 84100-TC; 84443-TC; 84484-TC; 85025-TC; 85730-TC; 86850-TC; 87081-TC; 87086-TC; 88305-TC; 88312-TC; 88313-TC; 92611-TC; 93307-TC; 97110-TC; 97116-TC; 97530-TC; C9113; G0378; J2405; J7030; J7050; Q9967; U0003-CS

== ENCOUNTER 2019-11-03 17:48 | Emergency (ER) | payer MEDICARE ==
[~2019-11-03] VITALS: Ht 170.2 cm; Wt 89.8 kg
[~2019-11-03 17:48] MED LIST changes: +PANT40TA2 PO
--- NOTE | 2019-11-03 17:48 | NUR ---
BIB RA 102 FROM HOME,C/O GENERALIZED WEAKNESS, TOOK NTG FOR A CHEST PAIN THAT AFFORDED RELIEF PRIOR TO CALLING EMS, TO ER BED 11, HOOKED TO MONITOR, PATIENT DENIES CHEST PAIN AT THIS TIME. CHANGED TO HOSP GOWN, WARM BLANKET PROVIDED, PATIENT NOTED WITH STUTTERING, PER PATIENT, "IT WAS SINCE I HAD MY STROKE". PATIENT CAN'T RECALL WHAT YEAR STROKE HAPPENED. AWAITING MD MARIE.
--- NOTE | 2019-11-03 17:57 | NUR ---
DR SOUTH AT BEDSIDE
[2019-11-03 18:14] LABS: BASOPHILS # (AUTO) 0.1 /CMM (0.0-0.2); BASOPHILS % (AUTO) 0.6 % (0.0-2.0); EOSINOPHILS % (AUTO) 2.5 % (0.0-6.0); HEMATOCRIT 26 % (33-45); HEMOGLOBIN 8.8 g/dL (11.5-14.8); LYMPHOCYTES # (AUTO) 1.1 /CMM (0.8-4.8); LYMPHOCYTES % (AUTO) 11.5 % (20.0-44.0); MEAN CORPUSCULAR HGB CONC 34 g/dl (31.0-36.0); MEAN CORPUSCULAR VOLUME 92 fL (82-100); MONOCYTES # (AUTO) 1.2 /CMM (0.1-1.30); MONOCYTES % (AUTO) 12.3 % (2.0-12.0); NEUTROPHILS # (AUTO) 6.9 /CMM (1.8-8.9); NEUTROPHILS % (AUTO) 73.1 % (43.0-81.0); PLATELET COUNT (AUTO) 204 /CMM (150-450); RED BLOOD CELL COUNT(AUTO) 2.86 MIL/uL (4.0-5.2); WHITE BLOOD COUNT (AUTO) 9.4 K/uL (4.3-11.0)
[2019-11-03 18:26] LABS: CALCIUM, SERUM 8.5 mg/dL (8.5-10.1); CREATININE 1.3 mg/dL (0.6-1.3); POTASSIUM 4.3 mmol/L (3.5-5.1)
[2019-11-03 18:32] LABS: ALBUMIN 3.1 g/dL (3.4-5.0); BILIRUBIN,DIRECT 0.1 mg/dL (0.0-0.2); BILIRUBIN,TOTAL 0.3 mg/dL (0.2-1.0); TOTAL PROTEIN, SERUM 5.9 g/dL (6.4-8.2)
[2019-11-03 18:40] LABS: THYROID STIMULATING HORMONE 1.622 uIU/mL (0.358-3.74)
--- NOTE | 2019-11-03 19:24 | NUR ---
ENDIRSEMENT GIVEN TO SUNNY IRWIN FOR CHRISTA
--- NOTE | 2019-11-03 19:35 | NUR ---
PAGED BALANCE TRUER LIGHTNING PROTECTION INSTALLER.
--- NOTE | 2019-11-03 20:28 | NUR ---
OCEAN LIFEGUARD AT BEDSIDE FOR SECOND TROPONIN
--- NOTE | 2019-11-03 21:58 | NUR ---
Patient discharged to home in stable condition. Written and verbal after care instructions given. Patient verbalizes understanding of instruction. IV removed. Catheter intact and site benign. Pressure and 4x4 applied to site. No bleeding noted. Picked up by daughter.
[2019-11-03 22:29] VITALS: BP 129/75
== END 2019-11-03 22:29 | disposition home or self-care (01) ==
LOC: ER 17:51
DX: R07.89 Other chest pain (principal); R53.1 Weakness; I10 Essential (primary) hypertension; E11.9 Type 2 diabetes mellitus without complications; E03.9 Hypothyroidism, unspecified; I25.2 Old myocardial infarction; Z88.5 Allergy status to narcotic agent; Z79.899 Other long term (current) drug therapy; Z79.82 Long term (current) use of aspirin; Z95.5 Presence of coronary angioplasty implant and graft
CPT/HCPCS: 36415; 71045-TC; 80048-TC; 80076-TC; 84443-TC; 84484-TC; 85025-TC; 85730-TC

== ENCOUNTER 2019-11-15 17:38 | Inpatient (IN) | payer MEDICARE ==
[~2019-11-15] VITALS: Ht 154.9 cm; Wt 89.4 kg
--- NOTE | 2019-11-15 17:50 | NUR ---
PT TO ER BED10 C/O EPISODES OF BLOOD Y STOOL NOTED TODAY. PT DENIES ANY WEAKNESS. PT STATES ON PLAVIX. GOT WORRIED AND CALLED PMD AND WAS ADVISDE TO GO TO ED. PT PLACED ON MONITOR. STABLE VITALS AWAITING MD MARIE.
--- NOTE | 2019-11-15 17:55 | NUR ---
DR LEONE AT BEDSIDE FOR EVAL.
[2019-11-15 18:10] LABS: BASOPHILS # (AUTO) 0.1 /CMM (0.0-0.2); BASOPHILS % (AUTO) 0.7 % (0.0-2.0); EOSINOPHILS % (AUTO) 3.3 % (0.0-6.0); HEMATOCRIT 28 % (33-45); HEMOGLOBIN 9.3 g/dL (11.5-14.8); LYMPHOCYTES # (AUTO) 1.1 /CMM (0.8-4.8); LYMPHOCYTES % (AUTO) 11.3 % (20.0-44.0); MEAN CORPUSCULAR HGB CONC 33 g/dl (31.0-36.0); MEAN CORPUSCULAR VOLUME 93 fL (82-100); MONOCYTES # (AUTO) 1.2 /CMM (0.1-1.30); MONOCYTES % (AUTO) 12.4 % (2.0-12.0); NEUTROPHILS % (AUTO) 72.3 % (43.0-81.0); PLATELET COUNT (AUTO) 280 /CMM (150-450); RED BLOOD CELL COUNT(AUTO) 3.05 MIL/uL (4.0-5.2); WHITE BLOOD COUNT (AUTO) 9.7 K/uL (4.3-11.0)
[2019-11-15 18:19] LABS: CALCIUM, SERUM 8.4 mg/dL (8.5-10.1); CARBON DIOXIDE 28 mmol/L (21-32); CHLORIDE 104 mmol/L (98-107); CREATININE 1.7 mg/dL (0.6-1.3); GLUCOSE 101 mg/dL (74-106); POTASSIUM 3.9 mmol/L (3.5-5.1); SODIUM SERUM 138 mmol/L (136-145); UREA NITROGEN, BLOOD 28 mg/dL (7-18)
[2019-11-15] MEDS ORDERED: FLUO20CA42 PO (18:35)
[2019-11-15] MEDS ORDERED: CARV6.252 PO (18:35)
[2019-11-15] MEDS ORDERED: HYDR25TA4 PO (18:35)
[2019-11-15] MEDS ORDERED: SIMV-46 PO (18:35)
[2019-11-15] MEDS ORDERED: PANT40TA4 PO (18:35)
[2019-11-15] MEDS ORDERED: GABA-532 PO (18:35)
[2019-11-15] MEDS ORDERED: DOCU-141 PO (18:35)
[2019-11-15] MEDS ORDERED: LACT1CAP63 PO (18:35)
[2019-11-15] MEDS ORDERED: LOSA100T31 PO (18:35)
--- NOTE | 2019-11-15 19:08 | NUR ---
REPORT TO INDIA IRWIN FOR CHRISTA.
--- NOTE | 2019-11-15 19:08 | NUR ---
Ruth Ann anglin in [facility] - 11/15/19 at 1911 by AFUA REPORT TO INDIA IRWIN FOR CHRISTA.
--- NOTE | 2019-11-15 19:28 | NUR ---
CALLED [facility], PAGED ROSINA OGDEN NP
--- NOTE | 2019-11-15 19:38 | NUR ---
ROXANA MOE TALKING TO ROSINA OGDEN NP REGARDING PT ADMISSION.
[2019-11-15] MEDS ORDERED: ONDANSETRON HCL/PF 4 MG/2 ML VIAL IVP PRN (20:00)
[2019-11-15] MEDS ORDERED: MAGNESIUM HYDROXIDE 30 ML UDC PO PRN (20:00)
[2019-11-15] MEDS ORDERED: INSULIN REGULAR, HUMAN 100 UNIT/ML 3 ML VIAL SQ PRN (20:00)
[2019-11-15] MEDS ORDERED: DEXTROSE 50%-WATER 50 ML DISP.SYRIN IV PRN ×2 (20:00)
[2019-11-15] MEDS ORDERED: Z GUARD REMEDY 2 OZ OINT TP PRN (20:00)
[2019-11-15] MEDS ORDERED: ACETAMINOPHEN 325 MG TABLET PO PRN (20:00)
[2019-11-15 20:07] LABS: APPEARANCE,URINE Clear (CLEAR); BILIRUBIN,URINE Negative (NEGATIVE); BLOOD, URINE Negative Ery/uL (NEGATIVE); COLOR,URINE Yellow (YELLOW); KETONES,URINE Negative (NEGATIVE); LEUKOCYTE ESTERASE ,URINE Negative (NEGATIVE); NITRITE, URINE Negative (NEGATIVE); PH,URINE 5.5 (5.0-8.0); PROTEIN,URINE Negative (NEGATIVE); UGLUCOSE Negative (NEGATIVE); UROBILINOGEN,URINE 0.2 EU/dL (0.2)
--- NOTE | 2019-11-15 20:25 | NUR ---
REPORT GIVEN TO JACKIE IRWIN FOR CHRISTA PT WILL BE TRANSPORTED TO 3RD FLOOR
[2019-11-15 20:40] VITALS: BP 109/66
--- NOTE | 2019-11-15 20:40 | NUR ---
RN OPEN NOTES RECEIVED PATIENT FROM ER VIA GURNEY. WAS ABLE TO AMBULATE TO BED USING CANE. PATIENT IS A/O X4. ON RA, NO SOB/ ACUTE RESPIRATORY DISTRESS NOTED. APPEARS COMFORTABLE, NO COMPLAINTS OF PAIN AT THE MOMENT. PATIENT ORIENTED TO ROOM. KEPT NPO, PER MEN'S CUSTOM HAIR PIECE CONSULTANT ROSINA OGDEN. BED IS IN LOWEST LOCKED POSITION WITH SIDE RAILS UP X2, SEMI FOWLERS. CALL LIGHT IS WITHIN REACH. WILL CONTINUE TO MONITOR. VITALS: BP 109/66, HR 67, RR 18, TEMP 98.8 O2 SAT 97%
[2019-11-15 20:45] VITALS: BP 109/66
[2019-11-15] MEDS ORDERED: BLOOD SUGAR DIAGNOSTIC 1 EACH STRIP IN SCH (22:00)
[2019-11-16] VITALS: BP 116/57
[2019-11-16] MEDS: BLOOD SUGAR DIAGNOSTIC 1 EACH STRIP IN SCH ×4 (00:13→17:00)
[2019-11-16 04:00] VITALS: BP 149/67
[2019-11-16] MEDS ORDERED: CLOP75TA15 PO (04:07)
[2019-11-16] MEDS ORDERED: LOSA100T31 PO (04:07)
--- NOTE | 2019-11-16 06:34 | NUR ---
COMEDIAN CLOSE NOTES PATIENT IS LAYING IN BED. A/O X4. ON RA, SATURATING >95%. NO SOB/ ACUTE RESPIRATORY DISTRESS NOTED. ON TELE MONITOR READING SR, HR 68. IV ON R AC #18G IS PATENT AND INTACT. APPEARS COMFORTABLE/ NO COMPLAINTS OF PAIN AT THE MOMENT. BED IS IN LOWEST LOCKED POSITION WITH SIDE RAILS UP X2, SEMI FOWLERS. ABLE TO AMBULATE WITH CANE. ALL ACCUCHECKS DONE. PATIENT KEPT NPO. CALL LIGHT IS WITHIN REACH. WILL ENDORSE TO AM NURSE.
[2019-11-16 06:44] LABS: CARBON DIOXIDE 27 mmol/L (21-32); CHLORIDE 105 mmol/L (98-107); CREATININE 1.6 mg/dL (0.6-1.3); GLUCOSE 103 mg/dL (74-106); MAGNESIUM 2.4 mg/dL (1.8-2.4); PHOSPHORUS 4.4 mg/dL (2.5-4.9); SODIUM SERUM 141 mmol/L (136-145); UREA NITROGEN, BLOOD 26 mg/dL (7-18)
[2019-11-16 06:47] LABS: BASOPHILS # (AUTO) 0.1 /CMM (0.0-0.2); BASOPHILS % (AUTO) 0.9 % (0.0-2.0); EOSINOPHILS % (AUTO) 3.6 % (0.0-6.0); HEMATOCRIT 30 % (33-45); HEMOGLOBIN 9.8 g/dL (11.5-14.8); IRON, SERUM 35 ug/dl (50-175); LYMPHOCYTES # (AUTO) 1.3 /CMM (0.8-4.8); LYMPHOCYTES % (AUTO) 16.6 % (20.0-44.0); MEAN CORPUSCULAR HGB CONC 33 g/dl (31.0-36.0); MEAN CORPUSCULAR VOLUME 92 fL (82-100); MONOCYTES # (AUTO) 0.9 /CMM (0.1-1.30); MONOCYTES % (AUTO) 11.2 % (2.0-12.0); NEUTROPHILS # (AUTO) 5.5 /CMM (1.8-8.9); NEUTROPHILS % (AUTO) 67.7 % (43.0-81.0); PLATELET COUNT (AUTO) 280 /CMM (150-450); RED BLOOD CELL COUNT(AUTO) 3.27 MIL/uL (4.0-5.2); TOTAL IRON BINDING CAPACITY 311 ug/dl (250-450); WHITE BLOOD COUNT (AUTO) 8.1 K/uL (4.3-11.0)
[2019-11-16 06:57] LABS: CHOLESTEROL 134 mg/dL (<200); FERRITIN 42 ng/mL (8-388); HDL CHOLESTEROL 47 mg/dL (40-60); LDL 76 mg/dL (0-99); THYROID STIMULATING HORMONE 2.202 uIU/mL (0.358-3.74); TRIGLYCERIDES 106 mg/dL (30-150)
[2019-11-16] MEDS: LEVOTHYROXINE SODIUM 50 MCG TABLET PO SCH (07:30)
--- NOTE | 2019-11-16 07:35 | NUR ---
rn notes patient received on room air, no sob n oted, patient on the tele at this time. NPO with R ac 18 gauge. GI consult pending at this time. Bed at the lowest setting, call light within reach, side rails up x2.
[2019-11-16] MEDS ORDERED: IV NS 0.9% 1,000 ML IV PRN (07:55)
[2019-11-16 08:00] VITALS: BP 152/70
[2019-11-16] MEDS: DOCUSATE SODIUM 100 MG CAPSULE PO SCH ×3 (08:13→21:07)
[2019-11-16] MEDS: LOSARTAN POTASSIUM 50 MG TABLET PO SCH (08:13)
[2019-11-16] MEDS: CARVEDILOL 6.25 MG TABLET PO SCH ×2 (08:13→17:02)
[2019-11-16] MEDS ORDERED: HYDROCHLOROTHIAZIDE 25 MG TABLET PO SCH (09:00)
--- NOTE | 2019-11-16 11:20 | NUR ---
rn notes patient states she is not diabetic and refuses blood sugar check at this time x3
[2019-11-16 16:00] VITALS: BP 163/63
--- NOTE | 2019-11-16 18:26 | NUR ---
rn notes patient remains on room air, no sob noted, a/o x4, BRP with good balance, clear liquid diet at this time. R AC 18 with 100 ml per hour NS. Refusing blood sugar x3. OB stool not collected due to patient being unable to have a bowel movement. Bed at the lowest setting, call light within reach, side raisl up x2.
--- NOTE | 2019-11-16 19:33 | NUR ---
MS RN OPEN NOTES PATIENT IS LAYING IN BED. A/O X4. ON RA, NO SOB/ ACUTE RESPIRATORY DISTRESS NOTED. APPEARS COMFORTABLE/ NO COMPLAINTS OF PAIN AT THE MOMENT. BED IS IN LOWEST LOCKED POSITION WITH SIDE RAILS UP X2, SEMIFOWLERS. CALL LIGHT IS WITHIN REACH. WILL CONTINUE TO MONITOR.
[2019-11-16 20:00] VITALS: BP 131/54
[2019-11-16] MEDS: LACTOBACILLUS RHAMNOSUS GG 1 EACH CAP.SPRINK PO SCH (21:06)
[2019-11-16] MEDS: SIMVASTATIN 20 MG TABLET PO SCH (21:06)
[2019-11-16] MEDS: FLUOXETINE HCL 20 MG CAPSULE PO SCH (21:07)
[2019-11-16] MEDS: GABAPENTIN 100 MG CAPSULE PO SCH (21:07)
[2019-11-16] MEDS: PANTOPRAZOLE 40 MG VIAL IV SCH (21:07)
--- NOTE | 2019-11-16 23:00 | NUR ---
MS IRWIN NOTES STOPPED IV NS 0.9% @ 100MLS/HR PER PATIENT & DAUGHTER'S REQUEST. DAUGHTER STATED SHE DID HER RESEARCH AND BELIEVES IT IS NOT WHAT IS BEST FOR HER MOM. Addendum: 11/17/19 at 0301 by JACKIE BETHEA RN PT PLACED BACK ON FLUIDS. PT DECIDED TO BE RECONNECTED.
[2019-11-17 04:36] LABS: OCCULT BLOOD STOOL POSITIVE (NEGATIVE)
[2019-11-17 06:19] LABS: BASOPHILS % (AUTO) 0.6 % (0.0-2.0); EOSINOPHILS % (AUTO) 3.4 % (0.0-6.0); HEMATOCRIT 29 % (33-45); HEMOGLOBIN 9.5 g/dL (11.5-14.8); LYMPHOCYTES # (AUTO) 1.2 /CMM (0.8-4.8); LYMPHOCYTES % (AUTO) 16.2 % (20.0-44.0); MEAN CORPUSCULAR HGB CONC 33 g/dl (31.0-36.0); MEAN CORPUSCULAR VOLUME 93 fL (82-100); MONOCYTES # (AUTO) 0.8 /CMM (0.1-1.30); MONOCYTES % (AUTO) 11.3 % (2.0-12.0); NEUTROPHILS # (AUTO) 4.9 /CMM (1.8-8.9); NEUTROPHILS % (AUTO) 68.5 % (43.0-81.0); PLATELET COUNT (AUTO) 248 /CMM (150-450); RED BLOOD CELL COUNT(AUTO) 3.16 MIL/uL (4.0-5.2); WHITE BLOOD COUNT (AUTO) 7.2 K/uL (4.3-11.0)
[2019-11-17] MEDS: BLOOD SUGAR DIAGNOSTIC 1 EACH STRIP IN SCH ×4 (06:25→17:08)
--- NOTE | 2019-11-17 06:32 | NUR ---
MS RN CLOSE NOTES PATIENT IS LAYING IN BED. A/O X4. ON RA, NO SOB/ ACUTE RESPIRATORY DISTRESS NOTED. APPEARS COMFORTABLE/ NO COMPLAINTS OF PAIN AT THE MOMENT. IV ON RIGHT AC #18G IS PATENT AND INTACT RUNNING NS @100MLS/HR. PATIENT IS AMBULATORY WITH CANE/ WALKER. BED IS IN LOWEST LOCKED POSITION WITH SIDE RAILS UP X2, SEMI FOWLERS. CALL LIGHT IS WITHIN REACH. WILL ENDORSE TO AM NURSE.
[2019-11-17 06:49] LABS: ALBUMIN 3.3 g/dL (3.4-5.0); BILIRUBIN,TOTAL 0.5 mg/dL (0.2-1.0); CALCIUM, SERUM 8.7 mg/dL (8.5-10.1); CREATININE 1.3 mg/dL (0.6-1.3); MAGNESIUM 2.2 mg/dL (1.8-2.4); PHOSPHORUS 3.7 mg/dL (2.5-4.9); POTASSIUM 3.9 mmol/L (3.5-5.1); TOTAL PROTEIN, SERUM 6.3 g/dL (6.4-8.2)
[2019-11-17 08:00] VITALS: BP_SYST 172; BP_SYST 174; BP_DIAS 70; BP_DIAS 76
--- NOTE | 2019-11-17 08:00 | NUR ---
rn notes received patient in the bed a/o x4, no acute respiratory distress, v/s taken , administered scheduled medication, patient refused pain.patient state "i need my Plavix". explained patient stop medication because of GI bleeding. patient wanted to see hospitalist, and bail attacher for her problems. administered scheduled medication , call light within to reach. infusing ns at 100 ml/hr on right fa intact, continued monitoring.
[2019-11-17] MEDS: LOSARTAN POTASSIUM 50 MG TABLET PO SCH (09:09)
[2019-11-17] MEDS: LEVOTHYROXINE SODIUM 50 MCG TABLET PO SCH (09:09)
[2019-11-17] MEDS: DOCUSATE SODIUM 100 MG CAPSULE PO SCH ×4 (09:09→22:00)
[2019-11-17] MEDS: CARVEDILOL 6.25 MG TABLET PO SCH ×2 (09:10→17:08)
[2019-11-17] MEDS: PANTOPRAZOLE 40 MG VIAL IV SCH ×2 (09:10→16:47)
--- NOTE | 2019-11-17 12:50 | NUR ---
rn notes bs-118 mg/dl, no coverage given, patient has 2 loose bowel movement. refused pain, need minimal assist bathroom, and daily hygiene. call light within to reach. continued monitoring.
[2019-11-17 16:00] VITALS: BP 145/78
--- NOTE | 2019-11-17 19:00 | NUR ---
RN NOTES bs-108 mg/dl, no coverage given, patient sign consent form for colonoscopy, v/s stable, administered scheduled medication, call light within to reach. NEEDS ATTENDED AND ANTICIPATED.endorsed oncoming nurse follow plan of care.
--- NOTE | 2019-11-17 19:30 | NUR ---
MS RN NOTES RESTING COMFORTABLY ON BED,A/O X4,BREATHING EASY,NO SOB,SALINE LOCK RIGHT AC INTACT AND PATENT.INSTRUCTED NPO TOMORROW MIDNIGHT FOR COLONOSCOPY ON THURSDAY,CONSENT ON CHART.FALL RISK,BED ALARM,CALL LIGHT IN REACH,NEEDS ANTICIPATED.
[2019-11-17 20:00] VITALS: BP 153/61
[2019-11-17] MEDS: LACTOBACILLUS RHAMNOSUS GG 1 EACH CAP.SPRINK PO SCH (21:54)
[2019-11-17] MEDS: GABAPENTIN 100 MG CAPSULE PO SCH (21:55)
[2019-11-17] MEDS: SIMVASTATIN 20 MG TABLET PO SCH (21:55)
[2019-11-17] MEDS: FLUOXETINE HCL 20 MG CAPSULE PO SCH (21:55)
--- NOTE | 2019-11-17 22:00 | NUR ---
MS RN NOTES DUE PO MEDS GIVEN,EXCEPT COLACE,REFUSED
--- NOTE | 2019-11-18 | NUR ---
MS RN NOTES REFUSED BLOOD SUGAR THIS TIME
--- NOTE | 2019-11-18 06:00 | NUR ---
MS RN NOTES ACCU-CHECK BLOOD SUGAR CHECK 98,NO INSULIN COVERAGE
[2019-11-18] MEDS: BLOOD SUGAR DIAGNOSTIC 1 EACH STRIP IN SCH ×4 (06:10→17:54)
[2019-11-18 06:13] LABS: BASOPHILS # (AUTO) 0.1 /CMM (0.0-0.2); BASOPHILS % (AUTO) 0.8 % (0.0-2.0); EOSINOPHILS % (AUTO) 2.9 % (0.0-6.0); HEMATOCRIT 28 % (33-45); HEMOGLOBIN 9.2 g/dL (11.5-14.8); LYMPHOCYTES % (AUTO) 15.2 % (20.0-44.0); MEAN CORPUSCULAR HGB CONC 33 g/dl (31.0-36.0); MEAN CORPUSCULAR VOLUME 92 fL (82-100); MONOCYTES # (AUTO) 0.8 /CMM (0.1-1.30); MONOCYTES % (AUTO) 12.2 % (2.0-12.0); NEUTROPHILS # (AUTO) 4.6 /CMM (1.8-8.9); NEUTROPHILS % (AUTO) 68.9 % (43.0-81.0); PLATELET COUNT (AUTO) 227 /CMM (150-450); RED BLOOD CELL COUNT(AUTO) 3.06 MIL/uL (4.0-5.2); WHITE BLOOD COUNT (AUTO) 6.6 K/uL (4.3-11.0)
--- NOTE | 2019-11-18 06:26 | NUR ---
MS RN NOTES SLEPT WELL AT NIGHT,REFUSED BLOOD SUGAR CHECK AT MIDNIGHT,NPO AT MIDNIGHT TONIGHT FOR COLONOSCOPY TOMORROW.PATIENT AWARE OF THE PROCEDURE.BLOOD SUGAR CHECK WITH IN NORMAL LIMITS THIS MORNING,98MG/DL,NO INSULIN COVERAGE.CALL LIGHT IN REACH,NEEDS ATTENDED.
[2019-11-18 06:33] LABS: BILIRUBIN,TOTAL 0.4 mg/dL (0.2-1.0); CALCIUM, SERUM 8.4 mg/dL (8.5-10.1); CREATININE 1.2 mg/dL (0.6-1.3); MAGNESIUM 2.1 mg/dL (1.8-2.4); PHOSPHORUS 3.2 mg/dL (2.5-4.9); POTASSIUM 4.2 mmol/L (3.5-5.1); TOTAL PROTEIN, SERUM 5.6 g/dL (6.4-8.2)
[2019-11-18 07:30] VITALS: BP 133/60
--- NOTE | 2019-11-18 08:00 | NUR ---
MS RN OPEN NOTES PATIENT IS LAYING IN BED. A/O X4. ON RA, NO SOB/ ACUTE RESPIRATORY DISTRESS NOTED. APPEARS COMFORTABLE/ NO COMPLAINTS OF PAIN AT THE MOMENT. BED IS IN LOWEST LOCKED POSITION WITH SIDE RAILS UP X2, SEMI-FOWLERS. CALL LIGHT IS WITHIN REACH. WILL CONTINUE TO MONITOR.
[2019-11-18 08:18] LABS: PTH, INTACT 65 pg/mL (15-65)
[2019-11-18] MEDS: DOCUSATE SODIUM 100 MG CAPSULE PO SCH ×3 (09:00→21:49)
[2019-11-18] MEDS: CARVEDILOL 6.25 MG TABLET PO SCH ×2 (09:46→17:54)
[2019-11-18] MEDS: PANTOPRAZOLE 40 MG VIAL IV SCH ×2 (09:46→17:53)
[2019-11-18] MEDS: LOSARTAN POTASSIUM 50 MG TABLET PO SCH (09:47)
[2019-11-18] MEDS: LEVOTHYROXINE SODIUM 50 MCG TABLET PO SCH (09:47)
[2019-11-18 10:14] LABS: *SPE A/G RATIO 1.1 (0.7-1.7); *SPE ALBUMIN 2.8 g/dL (2.9-4.4); *SPE ALPHA-1-GLOBULIN 0.2 g/dL (0.0-0.4); *SPE ALPHA-2-GLOBULIN 0.9 g/dL (0.4-1.0); *SPE BETA GLOBULIN 0.9 g/dL (0.7-1.3); *SPE GLOBULIN, TOTAL 2.6 g/dL (2.2-3.9); *SPE M-SPIKE Not Observed g/dL (Not Observed); *SPEGAMMA GLOBULIN 0.5 g/dL (0.4-1.8)
[2019-11-18] MEDS ORDERED: BENZOCAINE DENTAL GEL 7.5% 9.9 GM TUBE MM PRN (15:30)
[2019-11-18 16:00] VITALS: BP 155/73
[2019-11-18] MEDS: DORZOLAMIDE OPTH 2% 10 ML BOTTLE EACHEYE SCH (16:43)
--- NOTE | 2019-11-18 16:59 | NUR ---
PT INSISTS THAT SHE IS NOT DIABETIC BUT SHE LOVES TO DRINK APPLE JUICE 3 CARTONS OF IT. PT HAS HX OF DM 2 WAY BACK IN JUN 2019. NOTIFIED NALLELY JOINER WHO STATED THAT MAYBE PT'S BLOOD SUGAR IS CONTROLLED DURING THIS TIME. PT ALSO INSISTS THAT SHE HAS EYEDROPS WHICH HAD BEEN DISCONTINUED WAY BACK AUGUST 2019. PT INSISTS THAT SHE NEEDS HER EYEDROPS: LUMIGAN, DORZOLAMIDE AND TRAVATAN BACK-NOTIFIED NALLELY JOINER WITH ORDERS MADE AND CARRIED OUT.
[2019-11-18] MEDS ORDERED: BIMATOPROST 2.5 ML DROPS OP SCH (18:00)
[2019-11-18] MEDS ORDERED: PEG 3350/NA SULF,BICARB,CL/KCL 4,000 ML BOTTLE PO ONE (19:00)
--- NOTE | 2019-11-18 19:00 | NUR ---
ENCOURAGED PT TO FINISH THE GOLYTELY TOLERATED WELL. PT MADE SOFT BROWN STOOLS EVEN BEFORE GOLYTELY WAS ADMINISTERED. ENCOURAGED INCREASE FLUIDS. PT IS ON STOOL SOFTENER TWICE A DAY. PT IS ALWAYS BUSY TALKING TO FAMILY MEMBERS ON HER CELL PHONE.DR DELGADO CALLED WITH ORDERS FOR EGD AND COLONOSCOPY TOMORROW AND TO PUT PT ON NPO POST MIDNIGHT.
--- NOTE | 2019-11-18 19:10 | NUR ---
RN NOTES: RECEIVED AWAKE ON SEMI FOWLERS POSITION, ON ROOM AIR, A/OX4, CONVERSANT, SHE IS TALKING TO HER DAUGHTER ON THE PHONE UPON ENDORSEMENT TIME, AMBULATORY WITH BRP,CONTINENT BOTH BOWEL AND BLADDER, PER ENDORSEMENT PATIENT STARTED TO DRINK GOLYTELY PREP FOR EGD AND COLONOSCOPY TOMORROW, CONSENT NOT YET OBTAINED, PATIENT WILL BE NPO BY 12MN, OF NOW SHE IS ON CLEAR LIQUIDS, IV CANNULA RAC G#18.ORIENTED TO UNIT AND STAFF, BED LOW AND LOCKED, CALL LIGHT WITHIN EASY REACH, FALL,SAFETY AND ASPIRATION PRECAUTION OBSERVED.
[2019-11-18 20:00] VITALS: BP 150/81
[2019-11-18] MEDS: SIMVASTATIN 20 MG TABLET PO SCH (21:49)
[2019-11-18] MEDS: FLUOXETINE HCL 20 MG CAPSULE PO SCH (21:49)
[2019-11-18] MEDS: GABAPENTIN 100 MG CAPSULE PO SCH (21:49)
[2019-11-18] MEDS: LACTOBACILLUS RHAMNOSUS GG 1 EACH CAP.SPRINK PO SCH (21:49)
[2019-11-18] MEDS: LATANOPROST EYE DROP 0.005% 2.5 ML BOTTLE EACHEYE SCH (21:54)
[2019-11-18] MEDS ORDERED: TRAVOPROST (BENZALKONIUM) 2.5 ML BOTTLE EACHEYE SCH (22:00)
--- NOTE | 2019-11-18 22:00 | NUR ---
RN NOTES: EXPLAINED TO PATIENT THAT SHE NEED TO SIGN HER CONSENT FOR TOMORROW PROCEDURE, SHE WILL UNDERGONE EGD AND COLONOSCOPY,SHE AGREED AND SIGNED THE 3 PAGES FOR PROCEDURE, ANESTHESIA AND BT.PATIENT WAS GIVEN COPY PER HER REQUEST.
[2019-11-19] MEDS: BLOOD SUGAR DIAGNOSTIC 1 EACH STRIP IN SCH ×5 (00:15→23:58)
--- NOTE | 2019-11-19 00:16 | NUR ---
RN NOTES: BLOOD SUGAR CHECK-96, NO INSULIN GIVEN, WILL CONTINUE TO MONITOR FOR SIGN OF HYPER/HYPOGLYCEMIA,GOLYTELY GIVEN AND TOLERATED, PASS STOOL, CLEAN AND CHANGE.
--- NOTE | 2019-11-19 00:48 | NUR ---
RN NOTES: SHE HAD BM SEVERAL TIMES, CLEAN AND CHANGE.NEEDS ATTENDED.
--- NOTE | 2019-11-19 05:00 | NUR ---
RN NOTES: AWAKE, HAD WATERY STOOL , SMALL AMOUNT, ASSISTED TO THE BATHROOM, CLEAN AND CHANGE, NEEDS ATTENDED.
--- NOTE | 2019-11-19 06:34 | NUR ---
RN NOTES: COMPLAINED OF FEELING DRYNESS ON HER MOUTH, EXPLAINED TO HER THAT SHE IS ON NPO NOW AND SHE CANNOT TAKE ANYTHING PER ORAL, WET TOOTH SPONGE AND GIVEN TO HER SO THAT SHE CAN WET HER BUCAL [place],SHE SAID SHE HAS SORE TOUGUE STILL AWAITING FOR ORAL GEL TO BE DELIVERED SHE LOOKS SLEEPY.ASSISTED BACK TO BED, SPONGING RENDERED TO MAKE HER FEEL FRESH AND COMFORTABLE, SHE IS INSTRUCTING THE NURSES TO WAKE HER UP WHEN THE DOCTOR COME IN, SHE IS AWARE SHE IS NO.3 ON THE PROCEDURE AND WILL LET HER KNOW IF ITS HER TURN, PRE-OP CHECKLIST STARTED.FOR BLOOD TEST THIS MORNING. FOR RD F/U ON 11/20/19,ENDORSED TO F/U HER PT EVALUATION SHE WANTS TO WALK WITH THERAPIST.ENDORSED FOR CONTINUITY OF CARE.
[2019-11-19 06:36] LABS: BASOPHILS # (AUTO) 0.1 /CMM (0.0-0.2); BASOPHILS % (AUTO) 1.1 % (0.0-2.0); EOSINOPHILS % (AUTO) 3.5 % (0.0-6.0); HEMATOCRIT 28 % (33-45); HEMOGLOBIN 9.2 g/dL (11.5-14.8); LYMPHOCYTES # (AUTO) 0.9 /CMM (0.8-4.8); LYMPHOCYTES % (AUTO) 14.1 % (20.0-44.0); MEAN CORPUSCULAR HGB CONC 33 g/dl (31.0-36.0); MEAN CORPUSCULAR VOLUME 92 fL (82-100); MONOCYTES # (AUTO) 0.7 /CMM (0.1-1.30); MONOCYTES % (AUTO) 11.5 % (2.0-12.0); NEUTROPHILS # (AUTO) 4.3 /CMM (1.8-8.9); NEUTROPHILS % (AUTO) 69.8 % (43.0-81.0); PLATELET COUNT (AUTO) 194 /CMM (150-450); RED BLOOD CELL COUNT(AUTO) 3.04 MIL/uL (4.0-5.2); WHITE BLOOD COUNT (AUTO) 6.2 K/uL (4.3-11.0)
[2019-11-19 06:48] LABS: CALCIUM, SERUM 8.1 mg/dL (8.5-10.1); CREATININE 1.1 mg/dL (0.6-1.3); MAGNESIUM 1.9 mg/dL (1.8-2.4)
[2019-11-19] MEDS: LEVOTHYROXINE SODIUM 50 MCG TABLET PO SCH ×2 (07:30→14:10)
[2019-11-19 08:00] VITALS: BP_SYST 162; BP_SYST 169; BP_DIAS 74
--- NOTE | 2019-11-19 08:00 | NUR ---
MS RN OPEN NOTES PATIENT IS LAYING IN BED. A/O X4. ON RA, NO SOB/ ACUTE RESPIRATORY DISTRESS NOTED. APPEARS COMFORTABLE/ NO COMPLAINTS OF PAIN AT THE MOMENT. BED IS IN LOWEST LOCKED POSITION WITH SIDE RAILS UP X2, SEMI-FOWLERS. ON NPO FOR EGD/COLONOSCOPY PROCEDURE BY DR DELGADO. WITH ALL CONSENTS AND CHECKLIST SIGNED. CALL LIGHT IS WITHIN REACH. WILL CONTINUE TO MONITOR.
[2019-11-19] MEDS: DORZOLAMIDE OPTH 2% 10 ML BOTTLE EACHEYE SCH ×3 (09:00→16:13)
[2019-11-19] MEDS: CARVEDILOL 6.25 MG TABLET PO SCH ×3 (09:00→16:46)
[2019-11-19] MEDS: PANTOPRAZOLE 40 MG VIAL IV SCH ×2 (09:00→16:13)
[2019-11-19] MEDS: LOSARTAN POTASSIUM 50 MG TABLET PO SCH ×2 (09:00→14:10)
[2019-11-19] MEDS: DOCUSATE SODIUM 100 MG CAPSULE PO SCH ×3 (09:00→21:25)
--- NOTE | 2019-11-19 11:00 | NUR ---
PT CAM BACK S/P EGD AND COLONOSCOPY.WITH HEMORRHOIDS,POLYPS WITH BIOPSY DONE. BP 138/83 HR 65 RR 18 T 97.8 PA 010.WILL MONITOR.
--- NOTE | 2019-11-19 12:00 | NUR ---
PT IS GETTING ANXIOUS TO TAKE HER AM BP MEDS.WILL ADMINISTER HER COREG,SYNTHROID AND COZAAR PER PT REQUEST. BP 140/80 HR 70
[2019-11-19 16:00] VITALS: BP 152/55
[2019-11-19] MEDS: NYSTATIN (PYXIS) 500,000 UNIT/5 ML ORAL.SUSP PO SCH (16:46)
--- NOTE | 2019-11-19 16:56 | NUR ---
Pt has been refusing accuchecks saying she is not diabetic inspite of explaining the risks and benefits.
--- NOTE | 2019-11-19 19:30 | NUR ---
MS/RN OPENING NOTES: PATIENT IS LAYING IN BED. A/O X4. ON RA, NO SOB/ ACUTE RESPIRATORY DISTRESS NOTED. APPEARS COMFORTABLE. NO COMPLAINTS OF PAIN AT THE MOMENT. BED IS IN LOWEST LOCKED POSITION WITH SIDE RAILS UP X2, SEMI-FOWLERS. S/P EGD/COLONOSCOPY PROCEDURE BY DR DELGADO. PT IS STABLE. SAFETY MEASURES IN PLACE. CALL LIGHT IS WITHIN REACH. WILL CONTINUE TO MONITOR.
[2019-11-19 20:00] VITALS: BP 157/75
[2019-11-19] MEDS: FLUOXETINE HCL 20 MG CAPSULE PO SCH (21:24)
[2019-11-19] MEDS: GABAPENTIN 100 MG CAPSULE PO SCH (21:24)
[2019-11-19] MEDS: LACTOBACILLUS RHAMNOSUS GG 1 EACH CAP.SPRINK PO SCH (21:24)
[2019-11-19] MEDS: SIMVASTATIN 20 MG TABLET PO SCH (21:25)
[2019-11-19] MEDS: LATANOPROST EYE DROP 0.005% 2.5 ML BOTTLE EACHEYE SCH (21:34)
--- NOTE | 2019-11-19 22:43 | NUR ---
MS/RN NOTES: SPOKE TO ROSINA OGDEN FIELD INSTRUCTOR REGARDING PT'S BP ELEVATED 165/79 HR:76. PER ROSINA, "165 IS BORDERLINE. MONITOR PT. FOR NOW." NO NEW ORDERS. PT IS STABLE. WILL CONTINUE TO MONITOR PT ACCORDINGLY.
[2019-11-19] MEDS: INSULIN REGULAR, HUMAN 100 UNIT/ML 3 ML VIAL SQ PRN (23:58)
[2019-11-20] VITALS: BP 136/68
--- NOTE | 2019-11-20 00:04 | NUR ---
MS/RN NOTES: ACCUCHECK 101. NO INSULIN COVERAGE NEEDED PER SLIDING SCALE. BP NOW 136/68 HR:68. PT STABLE. WILL CONTINUE MONITORING ACCORDINGLY.
[2019-11-20] MEDS: BLOOD SUGAR DIAGNOSTIC 1 EACH STRIP IN SCH ×3 (05:49→17:09)
[2019-11-20] MEDS: INSULIN REGULAR, HUMAN 100 UNIT/ML 3 ML VIAL SQ PRN (05:50)
--- NOTE | 2019-11-20 06:50 | NUR ---
MS/RN CLOSING NOTES: PATIENT IS LAYING IN BED SLEEPING. A/O X4. ON RA, NO SOB/ ACUTE RESPIRATORY DISTRESS NOTED. APPEARS COMFORTABLE. NO COMPLAINTS OF PAIN AT THE MOMENT. BED IS IN LOWEST LOCKED POSITION WITH SIDE RAILS UP X2, SEMI-FOWLERS. ACCU CHECK AT 0600 IS 98. NO INSULIN COVERGAE NEEDED PER SLIDING SCALE. PT IS STABLE. SAFETY MEASURES IN PLACE. CALL LIGHT IS WITHIN REACH. WILL ENDORSE TO DAY SHIFT FOR CHRISTA.
[2019-11-20 08:00] VITALS: BP 158/75
--- NOTE | 2019-11-20 08:00 | NUR ---
rn notes received patient in the bed a/o x4, no acute respiratory distress, v/s taken , administered scheduled medication. patient self car, plan is discharge home, and follow PCP, and GI specialist. call light within to reach. iv access on right ac area intact. patient tolerated breakfast well, no bleeding. continued monitoring.
[2019-11-20] MEDS: NYSTATIN (PYXIS) 500,000 UNIT/5 ML ORAL.SUSP PO SCH ×3 (08:41→17:08)
[2019-11-20] MEDS: PANTOPRAZOLE 40 MG VIAL IV SCH ×2 (08:41→17:08)
[2019-11-20] MEDS: LOSARTAN POTASSIUM 50 MG TABLET PO SCH (08:41)
[2019-11-20] MEDS: CARVEDILOL 6.25 MG TABLET PO SCH ×2 (08:41→17:09)
[2019-11-20] MEDS: DOCUSATE SODIUM 100 MG CAPSULE PO SCH ×2 (08:42→17:08)
[2019-11-20] MEDS: LEVOTHYROXINE SODIUM 50 MCG TABLET PO SCH (08:42)
[2019-11-20] MEDS: DORZOLAMIDE OPTH 2% 10 ML BOTTLE EACHEYE SCH ×3 (08:52→17:10)
[2019-11-20] MEDS ORDERED: VALSARTAN 80 MG TABLET PO SCH (09:30)
--- NOTE | 2019-11-20 12:00 | NUR ---
rn notes refused blood glucose level to bed checked, administered scheduled medication.
[2019-11-20] MEDS ORDERED: PANT40TA4 PO (12:12)
--- NOTE | 2019-11-20 16:26 | NUR ---
Disposition: Discharge home/self care Disposition condition: Stable social insurance analyst NOTES: Patient DC home, stable no acute respiratory distress, v/s stable, refused pain. Followup with PCP within 1 week, Follow-up outpatient with GI Dr. Ni in office in 1-2 weeks phone #-[phone]. Protonix 40mg PO BID, transmitted to preferred pharmacy. Continue home medications. Seek immediate medical attention for worsening symptoms, chest pain, shortness of breath, palpitations, abdominal pain distention, intractable nausea and vomiting, diarrhea, hematochezia, melena, weakness, loss of consciousness, neurological deficit, or any other emergent concerns. med reconciliation, and discharge order reviewed and explained to, patient verbalized understanding. belonging with the patient, sign paperwork. escorted patiernt to the lobby for safety , mixing picker tender by family name Lacy phone #[phone]
[2019-11-20] MEDS ORDERED: PANTOPRAZOLE 40 MG TABLET.DR PO SCH (17:00)
[2019-11-20 17:09] VITALS: BP 153/61
== END 2019-11-20 18:14 | disposition home health service (06) | DRG 377 ==
LOC: ER 17:41 → TELE 20:12 → MED 11-16 14:37
PROVIDERS: ADMIT Registered Nurse; ATTEND Hospitalist
PROC: 0DB58ZX Excision of Esophagus, Via Natural or Artificial Opening Endoscopic, Diagnostic (ICD-10-PCS; principal; 2019-11-19)
PROC: 0DB68ZX Excision of Stomach, Via Natural or Artificial Opening Endoscopic, Diagnostic (ICD-10-PCS; 2019-11-19)
PROC: 0DBK8ZX Excision of Ascending Colon, Via Natural or Artificial Opening Endoscopic, Diagnostic (ICD-10-PCS; 2019-11-19)
DX: K29.71 Gastritis, unspecified, with bleeding (principal); N17.0 Acute kidney failure with tubular necrosis; E66.01 Morbid (severe) obesity due to excess calories; I25.10 Atherosclerotic heart disease of native coronary artery without angina pectoris; D64.9 Anemia, unspecified; E03.9 Hypothyroidism, unspecified; E78.5 Hyperlipidemia, unspecified; I10 Essential (primary) hypertension; Z86.73 Personal history of transient ischemic attack (TIA), and cerebral infarction without residual deficits; Z90.710 Acquired absence of both cervix and uterus; Z87.11 Personal history of peptic ulcer disease; Z83.3 Family history of diabetes mellitus; Z95.5 Presence of coronary angioplasty implant and graft; I25.2 Old myocardial infarction; E11.9 Type 2 diabetes mellitus without complications; Z68.37 Body mass index [BMI] 37.0-37.9, adult; K57.30 Diverticulosis of large intestine without perforation or abscess without bleeding; K63.5 Polyp of colon; K64.8 Other hemorrhoids; Z79.82 Long term (current) use of aspirin; K22.70 Barrett's esophagus without dysplasia; Z79.02 Long term (current) use of antithrombotics/antiplatelets
CPT/HCPCS: 36415; 80048-TC; 80053-TC; 80061-TC; 81000-TC; 82272-TC; 82550-TC; 82728-TC; 82962-TC; 83540-TC; 83735-TC; 83970; 84100-TC; 84155; 84165; 84443-TC; 85025-TC; 85730-TC; 86850-TC; 87081-TC; 88305-TC; 88312-TC; 88313-TC; 97116-TC; 97530-TC; C9113; G0378; J1815; J2704; J3490; J7030

== ENCOUNTER 2020-02-22 20:13 | Inpatient (IN) | payer MEDICARE ==
[~2020-02-22] VITALS: Ht 157.5 cm; Wt 94.3 kg
[~2020-02-22 20:13] MED LIST changes: -ASPI-1169 PO; -ATEN100T PO; -ATOR40TA PO; -BIMA2.5D5 EACHEYE; +CARV6.252 PO; -CELE-85 PO; +CLOP75TA15 PO; +DOCU-141 PO; -DORZ10DR11 EACHEYE; +FLUO20CA42 PO; +GABA-532 PO; +HYDR25TA4 PO; +LACT1CAP63 PO; -LIDO30AD10 TP; +LOSA100T31 PO; -LOSA50TA39 PO; -PANT40TA2 PO; +PANT40TA49 PO; +SIMV-46 PO; -TIZA4TAB5 PO; -TRAV5DRO EACHEYE; -ZOLP5TAB8 PO
--- NOTE | 2020-02-22 20:30 | NUR ---
PT AAOX4. BIBRA 102 FROM HOME C/O WEAKNESS AND DIZZINESS SINCE 1200. PT STATED SHE HAD A NITRO SL TODAY AND FEELS DIZZY. PT PLACED IN BED 9 ON MONITOR AND PULSE OX. AWAITING MD FOR EVAL. NO ACUTE DISTRESS NOTED.
--- NOTE | 2020-02-22 20:42 | NUR ---
SOIL ENGINEER AT BEDSIDE FOR EVAL.
--- NOTE | 2020-02-22 20:51 | NUR ---
RADIOLOGY AT BEDSIDE
[2020-02-22] MEDS ORDERED: MECLIZINE HCL 25 MG TABLET ONE (20:58)
[2020-02-22] MEDS ORDERED: IV NS 0.9% 1,000 ML BAG IV ONE (21:00)
[2020-02-22] MEDS ORDERED: MECLIZINE HCL 25 MG TABLET PO ONE (21:00)
[2020-02-22 21:13] LABS: BASOPHILS # (AUTO) 0.1 /CMM (0.0-0.2); BASOPHILS % (AUTO) 1.1 % (0.0-2.0); EOSINOPHILS % (AUTO) 2.1 % (0.0-6.0); HEMATOCRIT 36 % (33-45); HEMOGLOBIN 11.5 g/dL (11.5-14.8); LYMPHOCYTES # (AUTO) 1.3 /CMM (0.8-4.8); LYMPHOCYTES % (AUTO) 14.2 % (20.0-44.0); MEAN CORPUSCULAR HGB CONC 33 g/dl (31.0-36.0); MEAN CORPUSCULAR VOLUME 89 fL (82-100); MONOCYTES # (AUTO) 1.2 /CMM (0.1-1.30); MONOCYTES % (AUTO) 13.3 % (2.0-12.0); NEUTROPHILS # (AUTO) 6.1 /CMM (1.8-8.9); NEUTROPHILS % (AUTO) 69.3 % (43.0-81.0); PLATELET COUNT (AUTO) 183 /CMM (150-450); WHITE BLOOD COUNT (AUTO) 8.8 K/uL (4.3-11.0)
--- NOTE | 2020-02-22 21:28 | NUR ---
BROUGHT TO CT
[2020-02-22 21:29] LABS: ALANINE AMINOTRANSFERASE 17 U/L (12-78); ALBUMIN 3.3 g/dL (3.4-5.0); ALKALINE PHOSPHATASE 81 U/L (46-116); ASPARTATE AMINOTRANSFERASE 18 U/L (15-37); BILIRUBIN,DIRECT 0.1 mg/dL (0.0-0.2); BILIRUBIN,TOTAL 0.7 mg/dL (0.2-1.0); CALCIUM, SERUM 8.6 mg/dL (8.5-10.1); CARBON DIOXIDE 28 mmol/L (21-32); CHLORIDE 103 mmol/L (98-107); CREATININE 1.9 mg/dL (0.6-1.3); GLUCOSE 99 mg/dL (74-106); POTASSIUM 4.2 mmol/L (3.5-5.1); SODIUM SERUM 140 mmol/L (136-145); TOTAL PROTEIN, SERUM 6.3 g/dL (6.4-8.2); UREA NITROGEN, BLOOD 32 mg/dL (7-18)
--- NOTE | 2020-02-22 22:20 | NUR ---
AWAITING COVID SWAB
--- NOTE | 2020-02-22 23:14 | NUR ---
called the medical center. process control manager was paged
--- NOTE | 2020-02-22 23:20 | NUR ---
ER MD SPOKE TO DR. ARUNA ELLSWORTH REGARDING PT ADMISSION.
[2020-02-22] MEDS ORDERED: ONDANSETRON HCL/PF 4 MG/2 ML VIAL IVP PRN (23:30)
[2020-02-22] MEDS ORDERED: ENOXAPARIN SODIUM 40 MG/0.4 ML DISP.SYRIN SQ SCH (23:30)
[2020-02-22] MEDS ORDERED: Z GUARD REMEDY 2 OZ OINT TP PRN (23:30)
[2020-02-22] MEDS ORDERED: ZOLPIDEM TARTRATE 5 MG TABLET PO PRN (23:30)
[2020-02-22] MEDS ORDERED: ACETAMINOPHEN 325 MG TABLET PO PRN (23:30)
--- NOTE | 2020-02-23 00:18 | NUR ---
REPORT GIVEN TO FELICITAS IRWIN FOR CHRISTA
[2020-02-23 00:30] VITALS: BP 127/74
--- NOTE | 2020-02-23 00:34 | NUR ---
RN OPENING NOTE RECIEVED PT FROM ER VIA [facility]. PT TRANSFERRED FROM [facility] TO BED VIA 2 PERSON ASSIST. ON MED SURG STATUS. PT IS ALERT AND ORIENTED X 4. ON ROOM AIR. RESPIRATIONS EVEN AND UNLABORED. VITAL SIGNS TAKEN AND WNL. PT ORIENTED TO FACILITY AND USE OF CALL LIGHT. WITH LAC 20G IV PATENT AND FLUSHING WELL. DENIES PAIN OR DISCOMFORT. CALL LIGHT WITHIN REACH, SAFETY MEASURES IN PLACE, WILL MONITOR PATIENT.
[2020-02-23] MEDS: IV NS 0.9% 1,000 ML IV PRN ×2 (00:36→21:00)
[2020-02-23] MEDS: ENOXAPARIN SODIUM 30 MG/0.3 ML DISP.SYRIN SQ SCH ×2 (00:52→21:32)
--- NOTE | 2020-02-23 01:10 | NUR ---
RN NOTE PT REFUSED TO HAVE DVT PUMPS PLACED DESPITE EXPLANATION OF RISKS VS ADVANTAGES.
[2020-02-23 04:00] VITALS: BP 118/82
--- NOTE | 2020-02-23 06:12 | NUR ---
RN NOTE PATIENT UNCOOPERATIVE AND REFUSED TO HAVE LABS DRAWN AT THIS TIME. EXPLAINED RISKS VS ADVANTAGES. PT AGREED TO HAVE BLOOD DRAWN LATER IN THE MORNING. LAB NOTIFIED.
--- NOTE | 2020-02-23 06:42 | NUR ---
RN CLOSING NOTES NO ACUTE CHANGES OBSERVED THROUGHOUT SHIFT. PT IS ALERT AND ORIENTED X 4. ASSISTED TO BATHROOM AND TOLERATED WELL. WITH LEFT AC #18 G IV PATENT AND FLUSHING WELL WITH NS @ 75ML/HOUR RUNNING ORDERED. NO SIGNS OF COMPLICATIONS AT IV SITE. PT DENIES PAIN OR DISCOMFORT.CONTINUES TO REFUSE DVT PUMPS DESPITE RN'S EXPLANATION OF RISKS VS ADVANTAGES. PENDING BLOOD DRAW FROM LAB. SAFETY MEASURES IN PLACE, WILL ENDORSE TO MORNING RN FOR CONTINUATION OF CARE. Addendum: 02/23/20 at 0655 by FELICITAS CASTANEDA RN ERROR: LEFT AC #20G IV PATENT AND FLUSHING WELL.
--- NOTE | 2020-02-23 07:30 | NUR ---
RN OPENING NOTE Received patient in bed, A/Ox 4, sleeping, denies pain or discomfort , on room air, SPO2 100%, NO SOB noted. Patient is on Cardiac diet, IV line noted on L AC running NS @ 75 cc/hr, Skin is intact. Safety measures in place,bed alarm is on, bed in lowest position, HOB elevated, will cont to monitor
[2020-02-23] MEDS: LEVOTHYROXINE SODIUM 50 MCG TABLET PO SCH (07:59)
[2020-02-23] MEDS: PANTOPRAZOLE 40 MG TABLET.DR PO SCH ×2 (07:59→16:20)
[2020-02-23 08:00] VITALS: BP 136/76
[2020-02-23] MEDS: CARVEDILOL 6.25 MG TABLET PO SCH ×2 (09:24→09:30)
[2020-02-23] MEDS: DOCUSATE SODIUM 100 MG CAPSULE PO SCH ×2 (09:24→16:20)
[2020-02-23] MEDS: CLOPIDOGREL BISULFATE 75 MG TABLET PO SCH ×2 (09:24→09:30)
--- NOTE | 2020-02-23 09:32 | NUR ---
Patient refused Carvedolol and Clopidogrel, because took her own meds earlier, and refuses to give her medications to pharmacy or RNs, charge nurse is aware, will inform MD
--- NOTE | 2020-02-23 10:12 | NUR ---
L AC IV line infiltrated removed and will start new line l
[2020-02-23 10:21] LABS: BASOPHILS # (AUTO) 0.1 /CMM (0.0-0.2); BASOPHILS % (AUTO) 0.6 % (0.0-2.0); EOSINOPHILS % (AUTO) 2.3 % (0.0-6.0); HEMATOCRIT 38 % (33-45); HEMOGLOBIN 12.2 g/dL (11.5-14.8); LYMPHOCYTES # (AUTO) 0.7 /CMM (0.8-4.8); LYMPHOCYTES % (AUTO) 8.8 % (20.0-44.0); MEAN CORPUSCULAR HGB CONC 33 g/dl (31.0-36.0); MEAN CORPUSCULAR VOLUME 89 fL (82-100); MONOCYTES % (AUTO) 12.7 % (2.0-12.0); NEUTROPHILS # (AUTO) 6.1 /CMM (1.8-8.9); NEUTROPHILS % (AUTO) 75.6 % (43.0-81.0); PLATELET COUNT (AUTO) 207 /CMM (150-450); RED BLOOD CELL COUNT(AUTO) 4.22 MIL/uL (4.0-5.2); WHITE BLOOD COUNT (AUTO) 8.1 K/uL (4.3-11.0)
[2020-02-23 10:36] LABS: CALCIUM, SERUM 8.6 mg/dL (8.5-10.1); CARBON DIOXIDE 27 mmol/L (21-32); CHLORIDE 104 mmol/L (98-107); CREATININE 1.7 mg/dL (0.6-1.3); GLUCOSE 86 mg/dL (74-106); MAGNESIUM 2.2 mg/dL (1.8-2.4); PHOSPHORUS 4.6 mg/dL (2.5-4.9); POTASSIUM 3.7 mmol/L (3.5-5.1); SODIUM SERUM 141 mmol/L (136-145); UREA NITROGEN, BLOOD 33 mg/dL (7-18)
[2020-02-23 10:45] LABS: CHOLESTEROL 88 mg/dL (<200); HDL CHOLESTEROL 39 mg/dL (40-60); LDL 39 mg/dL (0-99); THYROID STIMULATING HORMONE 2.308 uIU/mL (0.358-3.74); TRIGLYCERIDES 89 mg/dL (30-150)
[2020-02-23 12:00] VITALS: BP 136/76
[2020-02-23 16:00] VITALS: BP 128/82
[2020-02-23] MEDS: LIDOCAINE 5% (PATCH) 1 EA PATCH TP SCH (16:20)
--- NOTE | 2020-02-23 19:04 | NUR ---
RN CLOSING NOTED PATIENT REMAINS IN BED, AWAKE, A/OX4 IN GOOD MOOD, DENIES PAIN OR DISCOMFORT, MEDICATIONS GIVEN, COMFORT CARE PROVIDED, SAFETY MEASURES IN PACE , BED IN LOWEST POSITION,CALL LIGHT IN REACH, WILL ENDORSE TO PM SHIFT RN FOR CHRISTA
[2020-02-23 20:00] VITALS: BP 133/73
[2020-02-23] MEDS: SIMVASTATIN 20 MG TABLET PO SCH (21:31)
[2020-02-23] MEDS: GABAPENTIN 100 MG CAPSULE PO SCH (21:31)
[2020-02-23] MEDS: FLUOXETINE HCL 20 MG CAPSULE PO SCH (21:31)
[2020-02-24 00:55] LABS: OCCULT BLOOD STOOL NEGATIVE (NEGATIVE)
[2020-02-24 04:00] VITALS: BP 142/64
[2020-02-24] MEDS: IV NS 0.9% 1,000 ML IV PRN ×2 (06:13→20:17)
--- NOTE | 2020-02-24 07:27 | NUR ---
RECEIVED PATIENT IN BED. NO ACUTE DISTRESS NOTED. PATIENT ALERT & ORIENTED X4. PATIENT ON ROOM AIR, BREATHING EVEN AND UNLABORED, SATURATING WELL. PATIENT LEFT ANTECUBITAL IV ACCESS INTACT, PATENT, FLUSHED WELL. PATIENT SAFETY MEASURES MAINTAINED. CALL LIGHT WITHIN REACH. WILL CONTINUE TO MONITOR.
[2020-02-24 07:28] LABS: BASOPHILS # (AUTO) 0.1 /CMM (0.0-0.2); BASOPHILS % (AUTO) 0.8 % (0.0-2.0); EOSINOPHILS % (AUTO) 2.8 % (0.0-6.0); HEMATOCRIT 38 % (33-45); HEMOGLOBIN 12.4 g/dL (11.5-14.8); LYMPHOCYTES # (AUTO) 1.3 /CMM (0.8-4.8); LYMPHOCYTES % (AUTO) 15.5 % (20.0-44.0); MEAN CORPUSCULAR HGB CONC 33 g/dl (31.0-36.0); MEAN CORPUSCULAR VOLUME 89 fL (82-100); MONOCYTES % (AUTO) 12.1 % (2.0-12.0); NEUTROPHILS # (AUTO) 5.7 /CMM (1.8-8.9); NEUTROPHILS % (AUTO) 68.8 % (43.0-81.0); PLATELET COUNT (AUTO) 213 /CMM (150-450); RED BLOOD CELL COUNT(AUTO) 4.29 MIL/uL (4.0-5.2); WHITE BLOOD COUNT (AUTO) 8.3 K/uL (4.3-11.0)
[2020-02-24 07:52] LABS: ALANINE AMINOTRANSFERASE 15 U/L (12-78); ALKALINE PHOSPHATASE 78 U/L (46-116); ASPARTATE AMINOTRANSFERASE 15 U/L (15-37); BILIRUBIN,TOTAL 0.5 mg/dL (0.2-1.0); CALCIUM, SERUM 8.3 mg/dL (8.5-10.1); CARBON DIOXIDE 25 mmol/L (21-32); CHLORIDE 106 mmol/L (98-107); CREATININE 1.5 mg/dL (0.6-1.3); GLUCOSE 89 mg/dL (74-106); MAGNESIUM 2.1 mg/dL (1.8-2.4); PHOSPHORUS 3.5 mg/dL (2.5-4.9); POTASSIUM 3.8 mmol/L (3.5-5.1); SODIUM SERUM 141 mmol/L (136-145); TOTAL PROTEIN, SERUM 6.1 g/dL (6.4-8.2); UREA NITROGEN, BLOOD 31 mg/dL (7-18)
[2020-02-24 07:55] LABS: CREATINE KINASE, TOTAL 66 U/L (26-192)
[2020-02-24 08:00] VITALS: BP 145/59
[2020-02-24] MEDS: LEVOTHYROXINE SODIUM 50 MCG TABLET PO SCH (08:25)
[2020-02-24] MEDS: PANTOPRAZOLE 40 MG TABLET.DR PO SCH ×2 (08:25→15:44)
[2020-02-24] MEDS: DOCUSATE SODIUM 100 MG CAPSULE PO SCH ×2 (08:25→16:00)
[2020-02-24] MEDS: TIMOLOL 0.25% SOL OPHTH 10 ML BOTTLE EACHEYE SCH ×2 (08:26→16:00)
[2020-02-24 10:11] LABS: IRON, SERUM 43 ug/dl (50-175); TOTAL IRON BINDING CAPACITY 274 ug/dl (250-450)
[2020-02-24 10:25] LABS: FERRITIN 23 ng/mL (8-388)
[2020-02-24] MEDS: HYDROCODONE/APAP 5/325MG TABLET PO PRN (10:40)
[2020-02-24 12:00] VITALS: BP 127/60
[2020-02-24] MEDS: LIDOCAINE 5% (PATCH) 1 EA PATCH TP SCH (15:44)
[2020-02-24 16:00] VITALS: BP 144/73
--- NOTE | 2020-02-24 18:33 | NUR ---
PATIENT IN BED. NO ACUTE DISTRESS NOTED. PATIENT ALERT & ORIENTED X4. PATIENT ON ROOM AIR, BREATHING EVEN AND UNLABORED, SATURATING WELL. PATIENT LEFT ANTECUBITAL IV ACCESS INTACT, PATENT, FLUSHED WELL. PATIENT SAFETY MEASURES MAINTAINED. CALL LIGHT WITHIN REACH. WILL ENDORSE PLAN OF CARE TO ONCOMING SHIFT FOR CONTINUITY OF CARE
--- NOTE | 2020-02-24 19:45 | NUR ---
RN OPENING NOTE PT RECEIVED IN BED. A/A//O X4. VSS, PT HAS 20 G IV ON RIGHT ARM INFILTRATED, IV REMOVED, NEW IV INSERTED 22 G LEFT AC, SAFETY MEASURES IN PLACE, BED AT LOWEST POSITION, LOCKED, SIDE RAILS UP X2, CALL LIGHT IN REACH. RIGHT ARM ELEVATED, COLD COMPRESS APPLIED FOR INFILTRATION.
[2020-02-24 20:00] VITALS: BP 145/69
[2020-02-24] MEDS: SIMVASTATIN 20 MG TABLET PO SCH (21:52)
[2020-02-24] MEDS: FLUOXETINE HCL 20 MG CAPSULE PO SCH (21:52)
[2020-02-24] MEDS: GABAPENTIN 100 MG CAPSULE PO SCH (21:53)
[2020-02-24] MEDS: ENOXAPARIN SODIUM 30 MG/0.3 ML DISP.SYRIN SQ SCH (21:54)
[2020-02-25 04:00] VITALS: BP 133/63
--- NOTE | 2020-02-25 07:10 | NUR ---
RN CLOSING NOTE PT REMAINED STABLE DURING MY SHIFT. REPORT GIVEN TO INCOMING SHIFT FOR CHRISTA.
[2020-02-25 08:00] VITALS: BP 130/82
[2020-02-25] MEDS: LEVOTHYROXINE SODIUM 50 MCG TABLET PO SCH (08:05)
[2020-02-25] MEDS: PANTOPRAZOLE 40 MG TABLET.DR PO SCH ×2 (08:05→15:39)
[2020-02-25 08:06] LABS: PTH, INTACT 47 pg/mL (15-65)
[2020-02-25 08:49] LABS: BASOPHILS % (AUTO) 0.5 % (0.0-2.0); EOSINOPHILS % (AUTO) 2.3 % (0.0-6.0); HEMATOCRIT 39 % (33-45); HEMOGLOBIN 12.5 g/dL (11.5-14.8); LYMPHOCYTES # (AUTO) 1.1 /CMM (0.8-4.8); LYMPHOCYTES % (AUTO) 13.3 % (20.0-44.0); MEAN CORPUSCULAR HGB CONC 32 g/dl (31.0-36.0); MEAN CORPUSCULAR VOLUME 89 fL (82-100); MONOCYTES # (AUTO) 0.6 /CMM (0.1-1.30); MONOCYTES % (AUTO) 7.8 % (2.0-12.0); NEUTROPHILS # (AUTO) 6.1 /CMM (1.8-8.9); NEUTROPHILS % (AUTO) 76.1 % (43.0-81.0); PLATELET COUNT (AUTO) 214 /CMM (150-450); RED BLOOD CELL COUNT(AUTO) 4.37 MIL/uL (4.0-5.2)
[2020-02-25 09:06] LABS: ALBUMIN 3.1 g/dL (3.4-5.0); BILIRUBIN,TOTAL 0.4 mg/dL (0.2-1.0); CALCIUM, SERUM 8.4 mg/dL (8.5-10.1); CREATININE 1.3 mg/dL (0.6-1.3); MAGNESIUM 1.9 mg/dL (1.8-2.4); PHOSPHORUS 3.1 mg/dL (2.5-4.9); TOTAL PROTEIN, SERUM 6.2 g/dL (6.4-8.2)
[2020-02-25] MEDS: DOCUSATE SODIUM 100 MG CAPSULE PO SCH ×2 (09:06→16:33)
[2020-02-25] MEDS: TIMOLOL 0.25% SOL OPHTH 10 ML BOTTLE EACHEYE SCH ×2 (09:06→16:34)
[2020-02-25] MEDS: CLOPIDOGREL BISULFATE 75 MG TABLET PO SCH (09:07)
[2020-02-25] MEDS: IV NS 0.9% 1,000 ML IV PRN (09:32)
[2020-02-25] MEDS: LIDOCAINE 5% (PATCH) 1 EA PATCH TP SCH (15:39)
[2020-02-25 16:00] VITALS: BP 128/86
--- NOTE | 2020-02-25 19:18 | NUR ---
PATIENT IN BED, CALM, AND RELAXED. NO SIGNS OF DISTRESS. ALL DUE MEDS GIVEN. KEPT CLEAN AND DRY. NO SIGNS OF PAIN OR DISCOMFORT. WILL ENDORSE TO ORACLE DATABASE DEVELOPER FOR CHRISTA. ALL SAFETY PRECAUTION PER HOSPITAL POLICY IMPLEMENTED.
--- NOTE | 2020-02-25 20:00 | NUR ---
RN OPENING NOTE PT RECEIVED IN BED. A/A//O X4. VSS, ON RA, UNLABORED BREATHING .PT HAS 22 G ON LEFT AC NS RUNNING AT 75 ML/H. SAFETY MEASURES IN PLACE, BED AT LOWEST POSITION, LOCKED, SIDE RAILS UP X2, CALL LIGHT IN REACH.
[2020-02-25] MEDS: FLUOXETINE HCL 20 MG CAPSULE PO SCH (22:16)
[2020-02-25] MEDS: ENOXAPARIN SODIUM 30 MG/0.3 ML DISP.SYRIN SQ SCH (22:18)
[2020-02-25] MEDS: SIMVASTATIN 20 MG TABLET PO SCH (22:18)
[2020-02-25] MEDS: GABAPENTIN 100 MG CAPSULE PO SCH (22:19)
--- NOTE | 2020-02-26 02:00 | NUR ---
RN CLOSING NOTE REPORT GIVEN TO RADHA IRWIN FOR CHRISTA. PT REMAINED STABEL DURING MY SHIFT
[2020-02-26] MEDS: IV NS 0.9% 1,000 ML IV PRN (04:32)
[2020-02-26 06:17] VITALS: BP 127/50
--- NOTE | 2020-02-26 06:23 | NUR ---
KATIE/RN PATIENT IS STILL SLEEPING, APPEAR COMFORTABLE, NO SIGNS OF DISTRESS NOTED, CALL LIGHT IN REACH, WILL CONTINUE TO MONITOR.
--- NOTE | 2020-02-26 07:44 | NUR ---
MS RN NOTE PATIENT IN BED AWAKE ,ALERT ORIENTED X4 NO SOB NOTED AT THIS TIME , ON IVF ORDERED LT IV HL INTACT AND FLUSHED WELL . BED IN LOWEST AND LOCKED POSITION , CALL LIGHT WITHIN REACH , PLAN OF CARE DISCUSSED WITH PATENT ,WILL CONT TO MONITOR
[2020-02-26 08:00] VITALS: BP 138/66
[2020-02-26 08:25] LABS: BASOPHILS % (AUTO) 0.6 % (0.0-2.0); EOSINOPHILS % (AUTO) 2.7 % (0.0-6.0); HEMATOCRIT 36 % (33-45); LYMPHOCYTES # (AUTO) 1.1 /CMM (0.8-4.8); LYMPHOCYTES % (AUTO) 13.6 % (20.0-44.0); MEAN CORPUSCULAR HGB CONC 33 g/dl (31.0-36.0); MEAN CORPUSCULAR VOLUME 88 fL (82-100); MONOCYTES # (AUTO) 0.9 /CMM (0.1-1.30); MONOCYTES % (AUTO) 11.4 % (2.0-12.0); NEUTROPHILS # (AUTO) 5.8 /CMM (1.8-8.9); NEUTROPHILS % (AUTO) 71.7 % (43.0-81.0); PLATELET COUNT (AUTO) 194 /CMM (150-450); RED BLOOD CELL COUNT(AUTO) 4.13 MIL/uL (4.0-5.2); WHITE BLOOD COUNT (AUTO) 8.1 K/uL (4.3-11.0)
[2020-02-26] MEDS: DOCUSATE SODIUM 100 MG CAPSULE PO SCH ×2 (08:38→16:36)
[2020-02-26] MEDS: CLOPIDOGREL BISULFATE 75 MG TABLET PO SCH (08:38)
[2020-02-26 08:41] LABS: CALCIUM, SERUM 8.5 mg/dL (8.5-10.1); CREATININE 1.2 mg/dL (0.6-1.3); POTASSIUM 3.9 mmol/L (3.5-5.1)
[2020-02-26] MEDS: TIMOLOL 0.25% SOL OPHTH 10 ML BOTTLE EACHEYE SCH ×2 (08:41→16:37)
[2020-02-26] MEDS: LEVOTHYROXINE SODIUM 50 MCG TABLET PO SCH (08:44)
[2020-02-26] MEDS: PANTOPRAZOLE 40 MG TABLET.DR PO SCH ×2 (08:44→16:37)
--- NOTE | 2020-02-26 11:11 | NUR ---
ms rn note assisted to bsc and able to ambulate with walker with customer service voice ,all needs attended ,will cont to monitor
[2020-02-26] MEDS ORDERED: IV NS 0.9% 1,000 ML IV PRN (11:54)
--- NOTE | 2020-02-26 14:27 | NUR ---
ms higgins note ambulated with walker with stand by assistance Addendum: 02/26/20 at 1430 by TOMMY MORLEY RN ambulated with walker with stand by assistance no c\o sob or discomfort, will monitor, Tiffanie higgins senior administrative assistant at bedside with new order with pt ordered
[2020-02-26] MEDS: LIDOCAINE 5% (PATCH) 1 EA PATCH TP SCH (15:36)
[2020-02-26 16:00] VITALS: BP 152/87
--- NOTE | 2020-02-26 18:30 | NUR ---
MS RN NOTE ALL NEEDS ATTENDED ,HAVING DINNER NOT IN DISTRESS, WILL CONT TO MONITOR
--- NOTE | 2020-02-26 19:30 | NUR ---
MS RN OPENING NOTES RECEIVED PATIENT FROM MORNING SHIFT, ALERT AND ORIENTED X 4. VERBALLY RESPONSIVE AND ABLE TO FOLLOW DIRECTIONS. BREATHING REGULAR AND UNLABORED ON ROOM AIR. LEFT AC G22 IV LINE PATENT AND INFUSING WELL WITH NO BLEEDING OR S/S INFILTRATION NOTED. DENIES SUICIDAL IDEATION OR PAIN/DISCOMFORT AT THIS TIME. BED LOW AND LOCKED ON SEMI FOWLERS POSITION. CALL LIGHT IN REACH. WILL CONTINUE TO MONITOR.
[2020-02-26 20:00] VITALS: BP 138/77
[2020-02-26] MEDS: ENOXAPARIN SODIUM 30 MG/0.3 ML DISP.SYRIN SQ SCH (21:38)
[2020-02-26] MEDS: FLUOXETINE HCL 20 MG CAPSULE PO SCH (21:38)
[2020-02-26] MEDS: GABAPENTIN 100 MG CAPSULE PO SCH (21:38)
[2020-02-26] MEDS: SIMVASTATIN 20 MG TABLET PO SCH (21:38)
[2020-02-26 22:00] VITALS: BP 138/77
[2020-02-27] MEDS: LEVOTHYROXINE SODIUM 50 MCG TABLET PO SCH (06:31)
[2020-02-27] MEDS: PANTOPRAZOLE 40 MG TABLET.DR PO SCH ×2 (06:31→17:39)
--- NOTE | 2020-02-27 06:45 | NUR ---
MS RN CLOSING NOTES PATIENT IN BED, ALERT AND ORIENTED X 4. AFEBRILE WITH NO S/S OF DISTRESS OBSERVED. LEFT AC G22 IV LINE PATENT AND INFUSING WELL. NO COMPLAINTS OF PAIN/DISCOMFORT REPORTED AT THIS TIME. BED LOW AND LOCKED ON SEMI FOWLERS POSITION. CALL LIGHT IN REACH. WILL ENDORSE TO MORNING SHIFT FOR CHRISTA.
[2020-02-27 07:27] LABS: BASOPHILS # (AUTO) 0.1 /CMM (0.0-0.2); BASOPHILS % (AUTO) 0.8 % (0.0-2.0); EOSINOPHILS % (AUTO) 2.5 % (0.0-6.0); HEMATOCRIT 37 % (33-45); HEMOGLOBIN 12.1 g/dL (11.5-14.8); LYMPHOCYTES % (AUTO) 12.9 % (20.0-44.0); MEAN CORPUSCULAR HGB CONC 33 g/dl (31.0-36.0); MEAN CORPUSCULAR VOLUME 88 fL (82-100); MONOCYTES # (AUTO) 0.9 /CMM (0.1-1.30); NEUTROPHILS # (AUTO) 5.6 /CMM (1.8-8.9); NEUTROPHILS % (AUTO) 71.8 % (43.0-81.0); PLATELET COUNT (AUTO) 188 /CMM (150-450); RED BLOOD CELL COUNT(AUTO) 4.17 MIL/uL (4.0-5.2); WHITE BLOOD COUNT (AUTO) 7.8 K/uL (4.3-11.0)
--- NOTE | 2020-02-27 07:33 | NUR ---
MS OPENING NOTE: PT RECEIVED A/OX4. PT AWAKE AND ALERT. PT DENIES FEELINGS OF DIZZINESS OR WEAKNESS. PT IS NOT IN DISTRESS. PT LEFT AC IV #22 INFUSING WELL AT THE SITE, NO PAIN OR DISCOMFORT, STATED BY PT. BED IN LOWEST LOCKED POSITION. CALL LIGHT WITHIN REACH. WILL CONTINUE TO MONITOR CLOSELY.
[2020-02-27 07:57] LABS: ALBUMIN 2.8 g/dL (3.4-5.0); BILIRUBIN,TOTAL 0.4 mg/dL (0.2-1.0); CALCIUM, SERUM 8.4 mg/dL (8.5-10.1); CREATININE 1.3 mg/dL (0.6-1.3); POTASSIUM 4.1 mmol/L (3.5-5.1); TOTAL PROTEIN, SERUM 5.8 g/dL (6.4-8.2)
[2020-02-27] MEDS: TIMOLOL 0.25% SOL OPHTH 10 ML BOTTLE EACHEYE SCH ×2 (09:10→17:39)
[2020-02-27] MEDS: CLOPIDOGREL BISULFATE 75 MG TABLET PO SCH (09:11)
[2020-02-27] MEDS: DOCUSATE SODIUM 100 MG CAPSULE PO SCH ×2 (09:11→17:40)
--- NOTE | 2020-02-27 09:26 | NUR ---
SCD LEG SLEEVES REMOVED, PER PATIENT REQUEST, DESPITE PT EDUCATION ON VTE.
--- NOTE | 2020-02-27 09:30 | NUR ---
RN NOTES DUE MEDS GIVEN
[2020-02-27 10:03] VITALS: BP 121/76
[2020-02-27 11:09] LABS: *SPE A/G RATIO 1.3 (0.7-1.7); *SPE ALPHA-1-GLOBULIN 0.2 g/dL (0.0-0.4); *SPE ALPHA-2-GLOBULIN 0.8 g/dL (0.4-1.0); *SPE BETA GLOBULIN 0.9 g/dL (0.7-1.3); *SPE GLOBULIN, TOTAL 2.4 g/dL (2.2-3.9); *SPE M-SPIKE Not Observed g/dL (Not Observed); *SPEGAMMA GLOBULIN 0.4 g/dL (0.4-1.8)
[2020-02-27] MEDS ORDERED: FLUO20CA42 PO (12:08)
[2020-02-27] MEDS ORDERED: GABA100C PO (12:08)
[2020-02-27] MEDS ORDERED: SIMV-46 PO (12:08)
[2020-02-27] MEDS ORDERED: LEVO50TA PO (12:08)
[2020-02-27] MEDS ORDERED: TIMO10DR19 EACHEYE (12:08)
[2020-02-27] MEDS ORDERED: PANT40TA2 PO (12:08)
[2020-02-27] MEDS ORDERED: DOCU-270 PO (12:08)
[2020-02-27] MEDS ORDERED: ACET325T53 PO (12:08)
[2020-02-27] MEDS ORDERED: CLOP75TA15 PO (12:08)
[2020-02-27] MEDS: LIDOCAINE 5% (PATCH) 1 EA PATCH TP SCH (17:40)
--- NOTE | 2020-02-27 19:25 | NUR ---
RN OPENING NOTES: RECEIVED PT A/OX4 IN BED RESTING COMFORTABLY.PATIENT IN NO S/SX OF ACUTE DISTRESS AT THIS TIME. NO SOB NOTED. PATIENT'S BREATHING IS EVEN AND UNLABORED. PATIENT ON RA; TOLERATING WELL; SATURATING AT 99%. NO IV SITE NOTED, NO RUNNING IV FLUID. PT TO BE DC WITHIN THE NIGHT. SAFETY MEASURES HAVE BEEN PROVIDED AND IMPLEMENTED. PATIENT BED ALARM IS ON. HEAD OF BED ELEVATED. BED IS LOCKED, IN LOWEST POSITION AND SIDE RAILS UP. CALL LIGHT WITHIN REACH OF THE PATIENT. ISOLATION PRECAUTIONS IN PLACE. WILL CONTINUE TO MONITOR AND REASSESS FOR ANY CHANGES.
--- NOTE | 2020-02-27 19:32 | NUR ---
RECRUITMENT INTERN NOTES PATIENT DISCHARGED TO HOME TODAY PER MD IN STABLE CONDITION. PROVIDED DC INSTRUCTIONS, MED RECON LIST AND HEALTH TEACHINGS. PATIENT TO FOLLOW UP WITH PCP IN 1 0 Addendum: 02/27/20 at 1936 by DELPHINE PACHECO RN ADDENDUM... PATIENT TO FOLLOW UP WITH PCP IN 1-2 WEEKS AND WILL MAKE OWN APPOINTMENT. IV ACCESS ON LEFT ARM REMOVED, APPLIED PRESSURE, NO BLEEDING, DRESSING IN PLACE. ALL BELONGINGS CHECKED AND RETURNED. ALL PAPERWORKS SIGNED. REPORT GIVEN TO EMT. PATIENT TO BE TRANSPORTED TO HOME VIA EMT AMBULANCE.
[2020-02-27 20:00] VITALS: BP 162/72
[2020-02-27] MEDS ORDERED: CLONIDINE HCL 0.1 MG TABLET PO ONE (20:10)
--- NOTE | 2020-02-27 20:10 | NUR ---
RN NOTES PATIENT TO BE DC AT THE MOMENT, AMBULANCE ALREADY HERE TO TEASEL GIG OPERATOR PT, HOWEVER PT MENTIONED THAT SHE IS EXPERIENCING HEADACHE /, CHECKED FOR BLOOD PRESSURE ITS AT 162/72; RELAYED TO MD- , HE ORDERED CLONIDINE .1MG X1.WILL CARRY OUT ORDER. ASSISTANT WOMEN'S BASKETBALL COACH MADE AWARE. WILL REASSESS AND MONITOR. ONCE STABLE WILL DC PT TO HOME.
--- NOTE | 2020-02-27 20:30 | NUR ---
RN NOTES PT VERBALIZED THAT SHE IS NOT COMFORTABLE OF GOING HOME TONIGHT AND WANTS TO BE DC THE FOLLOWING DAY PROBABLY IN THE MORNING. RELAYED INFO TO DR. VALDOVINOS. HE ACKNOWLEDGED. YARDING AND FOLDING MACHINE OPERATOR MADE AND WELL AWARE. WILL CONTINUE TO MONITOR AND ASSESS PT THROUGHOUT THE SHIFT.
[2020-02-27] MEDS: GABAPENTIN 100 MG CAPSULE PO SCH (21:29)
[2020-02-27] MEDS: FLUOXETINE HCL 20 MG CAPSULE PO SCH (21:29)
[2020-02-27] MEDS: SIMVASTATIN 20 MG TABLET PO SCH (21:29)
[2020-02-27] MEDS: ENOXAPARIN SODIUM 30 MG/0.3 ML DISP.SYRIN SQ SCH (21:30)
[2020-02-28 04:00] VITALS: BP 138/55
[2020-02-28] MEDS: HYDROCODONE/APAP 5/325MG TABLET PO PRN ×2 (06:38→15:32)
--- NOTE | 2020-02-28 07:07 | NUR ---
RN CLOSING NOTES PATIENT REMAINS IN ROOM IN NO SIGNS OF RESPIRATORY DISTRESS. PATIENT SATURATING 96% OF 02. VITAL SIGNS WNL. NO IV SITE. WILL ADVISE INCOMING RN REGARDING PT TO BE DC EARLY THIS MORNING. ALL PAPERWORK DONE PLACED ON THE PT'S CHART. SAFETY PRECAUTIONS IN PLACE AND COMFORT MEASURES RENDERED. BED IN LOWEST POSITION, CALL LIGHT WITHIN REACH, BREAKS ON, SIDE RAILS UP. ALL NEEDS ATTENDED, MEDICATIONS GIVEN SCHEDULED AND ORDERED ; SHIFT ASSESSMENT/BEDBATH/SKIN CARE DONE. PATIENT KEPT CLEAN AND DRY. WILL ENDORSE TO INCOMING SHIFT FOR CHRISTA WITH ALL PERTINENT INFO REGARDING PATIENT STATUS.
--- NOTE | 2020-02-28 07:45 | NUR ---
MS/RN - Assessment Patient in bed, awake, A/O x 4, states feeling better, denies chest pain, stable on room air, no apparent distress seen. Patient for discharge home today if blood pressure improved. All needs attended. Will continue with current medical management.
[2020-02-28] MEDS: PANTOPRAZOLE 40 MG TABLET.DR PO SCH ×2 (08:01→15:32)
[2020-02-28] MEDS: DOCUSATE SODIUM 100 MG CAPSULE PO SCH ×2 (08:02→16:51)
[2020-02-28] MEDS: LEVOTHYROXINE SODIUM 50 MCG TABLET PO SCH (08:02)
[2020-02-28] MEDS: CLOPIDOGREL BISULFATE 75 MG TABLET PO SCH (08:02)
[2020-02-28] MEDS: TIMOLOL 0.25% SOL OPHTH 10 ML BOTTLE EACHEYE SCH ×2 (08:12→16:54)
[2020-02-28 08:45] VITALS: BP 179/64
[2020-02-28 09:14] LABS: BASOPHILS # (AUTO) 0.1 /CMM (0.0-0.2); BASOPHILS % (AUTO) 0.8 % (0.0-2.0); EOSINOPHILS % (AUTO) 3.3 % (0.0-6.0); HEMATOCRIT 39 % (33-45); HEMOGLOBIN 12.7 g/dL (11.5-14.8); LYMPHOCYTES # (AUTO) 0.9 /CMM (0.8-4.8); MEAN CORPUSCULAR HGB CONC 33 g/dl (31.0-36.0); MEAN CORPUSCULAR VOLUME 88 fL (82-100); MONOCYTES # (AUTO) 0.7 /CMM (0.1-1.30); MONOCYTES % (AUTO) 9.9 % (2.0-12.0); NEUTROPHILS # (AUTO) 4.9 /CMM (1.8-8.9); PLATELET COUNT (AUTO) 202 /CMM (150-450); RED BLOOD CELL COUNT(AUTO) 4.41 MIL/uL (4.0-5.2); WHITE BLOOD COUNT (AUTO) 6.7 K/uL (4.3-11.0)
[2020-02-28 09:20] LABS: CALCIUM, SERUM 8.2 mg/dL (8.5-10.1); CARBON DIOXIDE 26 mmol/L (21-32); CHLORIDE 109 mmol/L (98-107); CREATININE 1.1 mg/dL (0.6-1.3); GLUCOSE 108 mg/dL (74-106); POTASSIUM 4.2 mmol/L (3.5-5.1); SODIUM SERUM 142 mmol/L (136-145); UREA NITROGEN, BLOOD 17 mg/dL (7-18)
--- NOTE | 2020-02-28 09:30 | NUR ---
Tele/RN - Bedside swallow screening Bedside swallow screening done, pt able to tolerate oral fluids without any s/s of aspiration, denies difficulty swallowing. Speech is clear, stuttering at times.
[2020-02-28 10:00] VITALS: BP 179/64
[2020-02-28] MEDS: LOSARTAN POTASSIUM 50 MG TABLET PO SCH (10:25)
--- NOTE | 2020-02-28 10:50 | NUR ---
CHARGE NURSE NOTES 0840 - PATIENT FOUND TO HAVE SLURRED SPEECH AND LEFT SIDE FACIAL DROOP. NIHSS SCORE 7 0845 - RAPID RESPONSE/CODE STROKE CALLED. 0847 - TEAM ARRIVED 0850 - DR. RHYS ABRAMS NOTIFIED AT 0850. 0852 - PATIENT TAKEN TO CT SCAN. 0905 - BACK AT 0905. TELE NEURO CONSULT [ROBOT] 0911 - DR. RAMESH. 0930 - SWALLOW SCREEN PASSED. 0945 - PATIENT TRANSFERRED TO TELEMETRY STATUS.
--- NOTE | 2020-02-28 13:00 | NUR ---
Tele/RN - Notes Speech therapist made aware that pt passed bedside swallow screen, tolerated oral fluids well, per ST ok to start full liquids and will evaluate tomorrow.
[2020-02-28] MEDS: LIDOCAINE 5% (PATCH) 1 EA PATCH TP SCH (15:32)
--- NOTE | 2020-02-28 16:30 | NUR ---
Tele/RN - Notes Patient signed release of health information and requested all medical records to be faxed to her associate director data & analytics Dr. Alden Delvalle.
[2020-02-28] MEDS: CARVEDILOL 6.25 MG TABLET PO SCH (16:51)
--- NOTE | 2020-02-28 18:13 | NUR ---
Tele/RN - End of shift summary Patient is awake, A/O x 4, speech still stuttering, no c/o weakness on BUE and BLE, tolerated full liquid diet, no evidence of aspiration. Seen by Dr. Pizarro with orders. All needs attended. Fall precautions maintained. Patient updated on plan of care and in agreement. Will endorse to night RN accordingly.
--- NOTE | 2020-02-28 19:50 | NUR ---
telemarketing supervisor initial notes, Patient in bed, awake, A/O x 4, breathing even and unlabored, at room air no s/s of any acute respiratory distress, denies pain or discomfort at this time, PIV line in LFA 22g s/l patent and intact, patient transfer to chair and will have bed bath, All needs attended, call light w/i reach, Will continue to monitor closely.
[2020-02-28] MEDS: GABAPENTIN 100 MG CAPSULE PO SCH (21:33)
[2020-02-28] MEDS: FLUOXETINE HCL 20 MG CAPSULE PO SCH (21:33)
[2020-02-28] MEDS: ENOXAPARIN SODIUM 30 MG/0.3 ML DISP.SYRIN SQ SCH (21:37)
[2020-02-28 22:00] VITALS: BP 144/54
[2020-02-28] MEDS ORDERED: SIMVASTATIN 20 MG TABLET PO SCH (22:00)
[2020-02-29] VITALS: BP 144/67
[2020-02-29 04:00] VITALS: BP 142/63
[2020-02-29 06:47] LABS: BASOPHILS # (AUTO) 0.1 /CMM (0.0-0.2); BASOPHILS % (AUTO) 0.7 % (0.0-2.0); EOSINOPHILS % (AUTO) 2.7 % (0.0-6.0); HEMATOCRIT 35 % (33-45); HEMOGLOBIN 11.6 g/dL (11.5-14.8); LYMPHOCYTES # (AUTO) 0.9 /CMM (0.8-4.8); LYMPHOCYTES % (AUTO) 12.5 % (20.0-44.0); MEAN CORPUSCULAR HGB CONC 33 g/dl (31.0-36.0); MEAN CORPUSCULAR VOLUME 87 fL (82-100); MONOCYTES # (AUTO) 0.9 /CMM (0.1-1.30); NEUTROPHILS # (AUTO) 5.3 /CMM (1.8-8.9); NEUTROPHILS % (AUTO) 72.1 % (43.0-81.0); PLATELET COUNT (AUTO) 197 /CMM (150-450); RED BLOOD CELL COUNT(AUTO) 4.01 MIL/uL (4.0-5.2); WHITE BLOOD COUNT (AUTO) 7.4 K/uL (4.3-11.0)
--- NOTE | 2020-02-29 06:56 | NUR ---
TRUCK CLEANER CLOSING NOTE PT IN BED. AWAKE A/O X4. BREATHING EVEN AND UNLABORED ON RA. 02 SATURATION AT 96%. DENIES ANY PAIN OR DISCOMFORT AT THIS MOMENT. LFA IV SITE PATENT AND INTACT. SR X2 UP . CALL LIGHT WITHIN REACH. ALL NEEDS RENDERED. KEPT CLEAN AND DRY. WILL ENDORSE TO AM NURSE FOR CONTINUITY OF CARE.
--- NOTE | 2020-02-29 07:30 | NUR ---
RN OPENING NOTES Received patient in be, A/Ox4, sitting and having breakfast, patient is on full liquids diet,tolerating well, on room air, SPO2 is 98%, no resp or SOB reported or observed, denies pain or discomfort at this moment, IV line noted on L FA, intact, patent and flushed.Patient is ambulatory and able to use bed side commode, Skin is intact, Telemonitor is showing SR 60-63, S1-S2 sound present, Safety measures in place, call light in reach,bed in lowest position will cont to monitor
[2020-02-29 07:48] LABS: CALCIUM, SERUM 8.6 mg/dL (8.5-10.1); CREATININE 1.2 mg/dL (0.6-1.3); PHOSPHORUS 3.5 mg/dL (2.5-4.9); POTASSIUM 4.5 mmol/L (3.5-5.1)
[2020-02-29] MEDS: LEVOTHYROXINE SODIUM 50 MCG TABLET PO SCH (08:15)
[2020-02-29] MEDS: PANTOPRAZOLE 40 MG TABLET.DR PO SCH (08:15)
[2020-02-29] MEDS: CLOPIDOGREL BISULFATE 75 MG TABLET PO SCH (08:24)
[2020-02-29] MEDS: LOSARTAN POTASSIUM 50 MG TABLET PO SCH (08:27)
[2020-02-29] MEDS: CARVEDILOL 6.25 MG TABLET PO SCH (08:27)
[2020-02-29] MEDS: DOCUSATE SODIUM 100 MG CAPSULE PO SCH (08:27)
--- NOTE | 2020-02-29 08:45 | NUR ---
dropped Colace accidently on the floor, will remove another pill from Omni cell
[2020-02-29] MEDS ORDERED: ASPIRIN 81 MG TAB.CHEW PO SCH (09:00)
--- NOTE | 2020-02-29 09:00 | NUR ---
Missing eye drops , called pharmacy, left request for drops to be delivered
--- NOTE | 2020-02-29 09:30 | NUR ---
speech therapist at bed site
[2020-02-29 10:00] VITALS: BP 152/43
--- NOTE | 2020-02-29 13:40 | NUR ---
Patient vital signs is 98.1 temp, BP 71, Resp 18, BP:150/63, SPO2 is 95%, transportation will arrive at 1400
[2020-02-29 14:00] VITALS: BP 148/63
--- NOTE | 2020-02-29 14:20 | NUR ---
Transportation team at bed site,patient ID and final destination confirmed with the team, patient is provided with discharge paperwork, IV line and ID bands removed, patient is safe and ready to discharge
--- NOTE | 2020-02-29 14:38 | NUR ---
Patient went with ambulance via [facility]
[2020-03-01] MEDS ORDERED: ASPIRIN 81 MG TAB.CHEW PO SCH (09:00)
== END 2020-02-29 15:20 | disposition home health service (06) | DRG 73 ==
LOC: ER 20:13 → MEDSG1 02-23 00:16 → TELE1 02-28 11:50
PROVIDERS: ATTEND Internal Medicine
DX: G90.8 Other disorders of autonomic nervous system (principal); N17.0 Acute kidney failure with tubular necrosis; G45.9 Transient cerebral ischemic attack, unspecified; I25.10 Atherosclerotic heart disease of native coronary artery without angina pectoris; E11.9 Type 2 diabetes mellitus without complications; E03.9 Hypothyroidism, unspecified; D64.9 Anemia, unspecified; I10 Essential (primary) hypertension; E78.5 Hyperlipidemia, unspecified; E66.9 Obesity, unspecified; Z87.11 Personal history of peptic ulcer disease; R00.1 Bradycardia, unspecified; I25.2 Old myocardial infarction; Z83.3 Family history of diabetes mellitus; Z95.5 Presence of coronary angioplasty implant and graft; R48.8 Other symbolic dysfunctions; Z68.38 Body mass index [BMI] 38.0-38.9, adult; R53.1 Weakness
CPT/HCPCS: 36415; 70450-TC; 71045-TC; 80048-TC; 80053-TC; 80061-TC; 80076-TC; 82272-TC; 82550-TC; 82728-TC; 82962-TC; 83540-TC; 83735-TC; 83880; 83970; 84100-TC; 84155; 84165; 84443-TC; 84484-TC; 85025-TC; 85730-TC; 86850-TC; 87081-TC; 92611-TC; 97116-TC; 97530-TC; A6253; C9803-CS; G0378; J1650; J7030; J8597

== ENCOUNTER 2020-11-11 18:16 | Inpatient (IN) | payer MEDICARE ==
[~2020-11-11] VITALS: Ht 165.1 cm; Wt 107.5 kg
[~2020-11-11 18:16] MED LIST changes: +ACET325T53 PO; -GABA-532 PO; +GABA100C PO; -HYDR25TA4 PO; +LEVO50TA PO; -LEVO50TA8 PO; +PANT40TA2 PO; +TIMO10DR19 EACHEYE
--- NOTE | 2020-11-11 18:16 | NUR ---
PT [id number] FROM HOME C/O MUTLTIPLE CC AND STUTTERING HER WORDS SINCE YESTERDAY AM. PT IS AAOX4, NOT IN RESPIRATORY DISTRESS, HOOKED TO TOMB MAKER HELPER, KEPT RESTED AND COMFORTABLE. WILL CONTINUE TO MONITOR.
--- NOTE | 2020-11-11 18:18 | NUR ---
SEEN AND EXAMINED BY .
--- NOTE | 2020-11-11 18:40 | NUR ---
MOVE PACKET TURNED IN.
--- NOTE | 2020-11-11 18:41 | NUR ---
ER PHLEB AT BEDSIDE FOR BLOOD DRAW.
--- NOTE | 2020-11-11 18:49 | NUR ---
COVID SPECIMEN OBTAINED AND SENT TO LAB.
[2020-11-11] MEDS ORDERED: ATOR40TA PO (19:11)
[2020-11-11] MEDS ORDERED: ISOS30TA86 PO (19:11)
[2020-11-11] MEDS ORDERED: CLOP75TA15 PO (19:11)
[2020-11-11] MEDS ORDERED: LEVO50TA8 PO (19:11)
[2020-11-11] MEDS ORDERED: TIMO5DRO35 EACHEYE (19:11)
[2020-11-11] MEDS ORDERED: PANT40TA2 PO (19:11)
[2020-11-11] MEDS ORDERED: BIMA2.5D5 EACHEYE (19:11)
[2020-11-11] MEDS ORDERED: NITR0.4T48 SL (19:11)
[2020-11-11] MEDS ORDERED: FLUO20CA42 PO (19:12)
[2020-11-11 19:35] LABS: CARBON DIOXIDE 24 mmol/L (21-32); CHLORIDE 110 mmol/L (98-107); CREATININE 1.3 mg/dL (0.6-1.3); GLUCOSE 130 mg/dL (74-106); POTASSIUM 3.9 mmol/L (3.5-5.1); SODIUM SERUM 143 mmol/L (136-145); UREA NITROGEN, BLOOD 18 mg/dL (7-18)
[2020-11-11 19:43] LABS: BASOPHILS % (AUTO) 0.5 % (0.0-2.0); EOSINOPHILS % (AUTO) 1.4 % (0.0-6.0); HEMATOCRIT 38 % (33-45); HEMOGLOBIN 12.7 g/dL (11.5-14.8); LYMPHOCYTES # (AUTO) 0.7 /CMM (0.8-4.8); LYMPHOCYTES % (AUTO) 8.1 % (20.0-44.0); MEAN CORPUSCULAR HGB CONC 34 g/dl (31.0-36.0); MEAN CORPUSCULAR VOLUME 94 fL (82-100); MONOCYTES # (AUTO) 1.2 /CMM (0.1-1.30); MONOCYTES % (AUTO) 13.8 % (2.0-12.0); NEUTROPHILS # (AUTO) 6.9 /CMM (1.8-8.9); NEUTROPHILS % (AUTO) 76.2 % (43.0-81.0); PLATELET COUNT (AUTO) 185 /CMM (150-450); RED BLOOD CELL COUNT(AUTO) 4.01 MIL/uL (4.0-5.2)
[2020-11-11 19:49] LABS: ALANINE AMINOTRANSFERASE 17 U/L (12-78); ALBUMIN 3.1 g/dL (3.4-5.0); ALKALINE PHOSPHATASE 101 U/L (46-116); ASPARTATE AMINOTRANSFERASE 15 U/L (15-37); BILIRUBIN,DIRECT 0.2 mg/dL (0.0-0.2); BILIRUBIN,TOTAL 0.6 mg/dL (0.2-1.0); TOTAL PROTEIN, SERUM 5.8 g/dL (6.4-8.2)
--- NOTE | 2020-11-11 20:22 | NUR ---
report given to Ted
--- NOTE | 2020-11-11 20:35 | NUR ---
BROILER MANAGERFISHER TROLL LINE NOTE PATIENT ADMITTED FOR ACUTE DIASTOLIC HF, CP. PATIENT ALERT/ORIENTED X 4 AND ABLE TO MAKE NEEDS KNOWN, NO COMPLAINTS OF CHEST PAIN AT THIS TIME. PATIENT STABLE ON ROOM AIR, NO S/S OF DISTRESS OR SHORTNESS OF BREATH NOTED. LEFT HAND IV ACCESS PATENT AND INTACT, SALINE LOCKED. PATIENT SKIN INTACT. PATIENT IS AMBULATORY TO [facility] WITH [place]. ORIENTED PATIENT TO ROOM AND HOW TO USE CALL LIGHT. SAFETY MEASURES IN PLACE, CALL LIGHT AND TABLE WITHIN REACH, SIDE RAILS UP X 3, BED ALARM ON, BED LOCKED IN LOWEST POSITION. WILL CONTINUE TO MONITOR
--- NOTE | 2020-11-11 20:37 | NUR ---
pt was transferred to 313 under acls
--- NOTE | 2020-11-11 21:00 | NUR ---
SKULL CHOPPER NOTES PATIENT BELONGINGS ACCOUNTED FOR AND DOCUMENTED. PATIENT'S WALLET WITH $250 ALMENDAREZ AND CREDIT CARDS TAKEN TO SAFE PER PATIENT'S REQUEST
[2020-11-11] MEDS ORDERED: ONDANSETRON HCL/PF 4 MG/2 ML VIAL IVP PRN (22:00)
[2020-11-11] MEDS ORDERED: ACETAMINOPHEN 325 MG TABLET PO PRN (22:00)
[2020-11-11] MEDS ORDERED: MAGNESIUM HYDROXIDE 30 ML UDC PO PRN (22:00)
[2020-11-11] MEDS: BIMATOPROST 2.5 ML DROPS OP SCH (22:00)
[2020-11-11] MEDS ORDERED: MORPHINE SULFATE INJ 2 MG/ML DISP.SYRIN IV PRN (22:00)
[2020-11-11] MEDS ORDERED: Z GUARD REMEDY 2 OZ OINT TP PRN (22:00)
--- NOTE | 2020-11-11 23:00 | NUR ---
RUG UNDERLAY MACHINE OPERATOR NOTE PATIENT LUMIGAN EYE DROPS NOT ADMINISTERED BECAUSE PATIENT IS A NEW ADMIT AND DROPS ARE NOT YET AVAILABLE FROM PHARMACY
[2020-11-11] MEDS: FLUOXETINE HCL 20 MG CAPSULE PO SCH (23:23)
[2020-11-12 01:10] VITALS: BP 142/70
[2020-11-12 04:34] VITALS: BP 168/67
[2020-11-12 06:33] LABS: BASOPHILS % (AUTO) 0.7 % (0.0-2.0); EOSINOPHILS % (AUTO) 2.4 % (0.0-6.0); HEMATOCRIT 38 % (33-45); HEMOGLOBIN 12.5 g/dL (11.5-14.8); LYMPHOCYTES # (AUTO) 0.7 /CMM (0.8-4.8); LYMPHOCYTES % (AUTO) 10.2 % (20.0-44.0); MEAN CORPUSCULAR HGB CONC 33 g/dl (31.0-36.0); MEAN CORPUSCULAR VOLUME 94 fL (82-100); MONOCYTES % (AUTO) 14.2 % (2.0-12.0); NEUTROPHILS # (AUTO) 4.9 /CMM (1.8-8.9); NEUTROPHILS % (AUTO) 72.5 % (43.0-81.0); PLATELET COUNT (AUTO) 169 /CMM (150-450); RED BLOOD CELL COUNT(AUTO) 4.03 MIL/uL (4.0-5.2); WHITE BLOOD COUNT (AUTO) 6.8 K/uL (4.3-11.0)
[2020-11-12 07:06] LABS: ALANINE AMINOTRANSFERASE 14 U/L (12-78); ALKALINE PHOSPHATASE 86 U/L (46-116); ASPARTATE AMINOTRANSFERASE 15 U/L (15-37); CALCIUM, SERUM 8.4 mg/dL (8.5-10.1); CARBON DIOXIDE 23 mmol/L (21-32); CHLORIDE 110 mmol/L (98-107); CREATININE 1.3 mg/dL (0.6-1.3); GLUCOSE 102 mg/dL (74-106); MAGNESIUM 1.9 mg/dL (1.8-2.4); PHOSPHORUS 3.9 mg/dL (2.5-4.9); POTASSIUM 4.2 mmol/L (3.5-5.1); SODIUM SERUM 142 mmol/L (136-145); TOTAL PROTEIN, SERUM 5.7 g/dL (6.4-8.2); UREA NITROGEN, BLOOD 19 mg/dL (7-18)
[2020-11-12 07:17] LABS: CHOLESTEROL 97 mg/dL (<200); HDL CHOLESTEROL 41 mg/dL (40-60); LDL 42 mg/dL (0-99); THYROID STIMULATING HORMONE 1.452 uIU/mL (0.358-3.74); TRIGLYCERIDES 80 mg/dL (30-150)
--- NOTE | 2020-11-12 07:18 | NUR ---
MANAGER OF INTERNATIONAL CLOSING NOTE PATIENT ALERT/ORIENTED X 4 AND ABLE TO MAKE NEEDS KNOWN, NO COMPLAINTS OF CHEST PAIN AT THIS TIME. PATIENT STABLE ON ROOM AIR, NO S/S OF DISTRESS OR SHORTNESS OF BREATH NOTED. LEFT HAND IV ACCESS PATENT AND INTACT, SALINE LOCKED. PATIENT SKIN INTACT. PATIENT IS AM[place]AT[place] [facility]. MEDICATIONS GIVEN ORDERED, PATIENT NEEDS MET THROUGHOUT SHIFT. DVT PUMPS ON PT. SAFETY MEASURES IN PLACE, CALL LIGHT AND TABLE WITHIN REACH, SIDE RAILS UP X 3, BED ALARM ON, BED LOCKED IN LOWEST POSITION. WILL ENDORSE TO DAY SHIFT NURSE FOR CONTINUITY OF CARE
--- NOTE | 2020-11-12 07:25 | NUR ---
WOOL SCOURER OPENING NOTE PATIENT ALERT/ORIENTED X 4 AND ABLE TO MAKE NEEDS KNOWN, NO COMPLAINTS OF CHEST PAIN AT THIS TIME. PATIENT STABLE ON ROOM AIR, NO S/S OF DISTRESS OR SHORTNESS OF BREATH NOTED. LEFT HAND IV ACCESS PATENT AND INTACT, SALINE LOCKED. PATIENT SKIN INTACT. PT BRP WITH ASSIST MEDICATIONS GIVEN ORDERED, PATIENT NEEDS MET THROUGHOUT SHIFT. ROOM KEPT CLEAN AND FREE OF HAZARDS, CALL LIGHT WITHIN REACH AND ANSWERED PROMPTLY, SIDE RAILS UP X 3, BED ALARM ON, BED LOCKED IN LOWEST POSITION.
[2020-11-12 08:00] VITALS: BP 152/71
[2020-11-12] MEDS ORDERED: LOSARTAN POTASSIUM 50 MG TABLET PO SCH (09:00)
[2020-11-12] MEDS ORDERED: NITROGLYCERIN 0.4 MG/TAB BOTTLE ONE (09:53)
[2020-11-12] MEDS ORDERED: IOHEXOL-350 100 ML VIAL IV ONE ×2 (09:53→10:27)
[2020-11-12] MEDS ORDERED: METOPROLOL TARTRATE INJ 5 MG/5 ML AMPUL ONE ×5 (09:53→10:25)
[2020-11-12] MEDS ORDERED: CT SWABBABLE VALVE TRANS SET 1 EA INFUS.SET MC ONE (09:54)
[2020-11-12] MEDS ORDERED: IV NS 0.9% 250 ML IV ONE ×2 (09:54→10:27)
[2020-11-12] MEDS: METOPROLOL TARTRATE INJ 5 MG/5 ML AMPUL IVP PRN ×10 (09:55→10:42)
[2020-11-12] MEDS ORDERED: NITROGLYCERIN 0.4 MG/TAB BOTTLE SL ONE (10:00)
[2020-11-12] MEDS: NITROGLYCERIN 0.4 MG/TAB BOTTLE SL PRN ×2 (10:17→20:03)
--- NOTE | 2020-11-12 10:44 | NUR ---
consented to CTA heart' procedure explained; all questions answered; given a total of Metoprolol 5 mg IVP evry 5 minutes x 10 doses and NTG 0.4 mg Sl x1; procedure tolerated; VSS;report given to floor RN Edward; sent back to the floor via wheelchair
[2020-11-12] MEDS: IV NS 0.9% 500 ML IV PRN ×2 (10:55→17:00)
[2020-11-12] MEDS: CLOPIDOGREL BISULFATE 75 MG TABLET PO SCH (11:12)
[2020-11-12] MEDS: TIMOLOL 0.5% SOLN OPHTH 5 ML BOTTLE EACHEYE SCH ×2 (11:12→16:11)
[2020-11-12] MEDS: FUROSEMIDE 40 MG/4 ML VIAL IV SCH ×2 (11:12→13:13)
[2020-11-12] MEDS: PANTOPRAZOLE 40 MG TABLET.DR PO SCH (11:15)
[2020-11-12] MEDS: CARVEDILOL 6.25 MG TABLET PO SCH ×2 (11:15→16:11)
[2020-11-12] MEDS: ASPIRIN 81 MG TAB.CHEW PO SCH (11:15)
[2020-11-12] MEDS: DOCUSATE SODIUM 100 MG CAPSULE PO SCH ×2 (11:15→16:11)
[2020-11-12] MEDS: POTASSIUM CHLORIDE 20 MEQ TAB.PRT.SR PO SCH ×3 (11:16→13:11)
[2020-11-12] MEDS: LEVOTHYROXINE SODIUM 50 MCG TABLET PO SCH (11:17)
[2020-11-12] MEDS ORDERED: POTASSIUM CHLORIDE 20 MEQ TAB.PRT.SR PO SCH (13:00)
[2020-11-12] MEDS: ISOSORBIDE MONONITRATE (30MG) 30 MG TAB.SR.24H PO SCH (13:12)
[2020-11-12 16:00] VITALS: BP 101/61
--- NOTE | 2020-11-12 19:30 | NUR ---
TELE/RN OPENING NOTE RECEIVED PATIENT RESTING IN BED. AWAKE, ALERT AND ORIENTED X 4. ABLE TO MAKE NEEDS KNOWN. NO COMPLAINTS OF PAIN AT THIS TIME. IV ACCESS TO LEFT HAND #22G AND RIGHT AC BOTH INTACT, PATENT AND SALINE LOCKED. TELE MONITOR CURRENTLY READING SR 67. CONTINUES ON ROOM AIR WITH NO S/SX OF RESPIRATORY DISTRESS NOTED. CALL LIGHT WITHIN REACH. ASPIRATION, FALL AND SAFETY PRECAUTIONS MAINTAINED. WILL CONTINUE TO MONITOR.
[2020-11-12 20:00] VITALS: BP 120/60
--- NOTE | 2020-11-12 20:06 | NUR ---
CUSTOMER LIAISON NOTE PATIENT WITH C/O "CONSTRICTION AROUND CHEST". PATIENT WITH NON-LABORED BREATHING. CONTINUES ON ROOM AIR. VS: BP 120/67 HR 68 RR 18 T 97.2 O2 SAT 97% ROOM AIR. TELE MONITOR READING SR 68. ADMINISTERED PRN NITROGLYCERIN X 1 PER PATIENT REQUEST. WILL CONTINUE TO MONITOR.
--- NOTE | 2020-11-12 20:30 | NUR ---
TELE/RN NOTE PATIENT STATES THE "CONSTRICTION IS GONE" AND STATES SHE FEELS MUCH BETTER. BP IS 114/57. WILL CONTINUE TO MONITOR.
--- NOTE | 2020-11-12 21:00 | NUR ---
TELE/RN NOTE PATIENT WITH C/O MUSCLE SPASMS IN BLE WHICH ARE CHRONIC. STATES SHE TAKES ZANAFLEX AT HOME. NOTIFIED FENCE GATE ASSEMBLER MD FITCH WITH NEW ORDER FOR ZANAFLEX 2MG q8HR PRN. ORDER INPUTTED AND CARRIED OUT.
[2020-11-12] MEDS: TIZANIDINE HCL 4 MG TABLET PO PRN (21:11)
[2020-11-12] MEDS: FLUOXETINE HCL 20 MG CAPSULE PO SCH (21:11)
[2020-11-12] MEDS: BIMATOPROST 2.5 ML DROPS OP SCH (22:00)
[2020-11-13] VITALS: BP 100/58
--- NOTE | 2020-11-13 02:00 | NUR ---
TELE/RN NOTE PATIENT WITH MULTIPLE LOOSE STOOLS ON 11/12. PATIENT HAD 3RD LOOSE, WATERY BOWEL MOVEMENT IN 24HRS. STOOL SAMPLE FOR C-DIFF COLLECTED AND SENT TO LAB. WILL CONTINUE TO MONITOR.
--- NOTE | 2020-11-13 03:31 | NUR ---
TELE/RN NOTE PATIENT WITH C/O PAIN TO LEFT LOWER LEG 10/10 MUSCLE SPASMS. REQUESTING MORPHINE PRN. STATES IN COMPUTER THAT PATIENT HAS ALLERGY TO MORPHINE. PATIENT STATES SHE DOESN'T HAVE ALLERGY AND WANTS MEDICATION. PATIENT IS ALERT AND ORIENTED X 4. WILL CONTINUE TO MONITOR.
[2020-11-13 04:00] VITALS: BP 98/58
--- NOTE | 2020-11-13 04:00 | NUR ---
TELE/RN NOTE PATIENT IV TO LEFT HAND DISLODGED. NEW IV PLACED TO RIGHT HAND. CONTINUES WITH IV TO RIGHT AC WHICH IS INTACT AND PATENT. WILL CONTINUE TO MONITOR.
[2020-11-13] MEDS: TIZANIDINE HCL 4 MG TABLET PO PRN (05:24)
[2020-11-13 06:00] VITALS: BP 120/60
[2020-11-13 06:22] LABS: BASOPHILS % (AUTO) 0.2 % (0.0-2.0); EOSINOPHILS % (AUTO) 1.6 % (0.0-6.0); HEMATOCRIT 40 % (33-45); HEMOGLOBIN 13.5 g/dL (11.5-14.8); LYMPHOCYTES % (AUTO) 10.1 % (20.0-44.0); MEAN CORPUSCULAR HGB CONC 34 g/dl (31.0-36.0); MEAN CORPUSCULAR VOLUME 93 fL (82-100); MONOCYTES # (AUTO) 1.5 /CMM (0.1-1.30); NEUTROPHILS # (AUTO) 6.9 /CMM (1.8-8.9); NEUTROPHILS % (AUTO) 72.1 % (43.0-81.0); PLATELET COUNT (AUTO) 188 /CMM (150-450); RED BLOOD CELL COUNT(AUTO) 4.33 MIL/uL (4.0-5.2); WHITE BLOOD COUNT (AUTO) 9.6 K/uL (4.3-11.0)
--- NOTE | 2020-11-13 06:45 | NUR ---
TELE/RN CLOSING NOTE PATIENT RESTING IN BED. AWAKE, ALERT AND ORIENTED X 4. ABLE TO MAKE NEEDS KNOWN. NO COMPLAINTS OF PAIN AT THIS TIME. IV ACCESS TO RIGHT HAND AND RIGHT AC BOTH INTACT, PATENT AND SALINE LOCKED. TELE MONITOR CURRENTLY READING SR 67. CONTINUES ON ROOM AIR WITH NO S/SX OF RESPIRATORY DISTRESS NOTED. CALL LIGHT WITHIN REACH. ASPIRATION, FALL AND SAFETY PRECAUTIONS MAINTAINED. WILL ENDORSE PLAN OF CARE TO ONCOMING SHIFT.
[2020-11-13 06:48] LABS: ALANINE AMINOTRANSFERASE 15 U/L (12-78); ALBUMIN 3.2 g/dL (3.4-5.0); ALKALINE PHOSPHATASE 84 U/L (46-116); ASPARTATE AMINOTRANSFERASE 13 U/L (15-37); BILIRUBIN,TOTAL 0.8 mg/dL (0.2-1.0); CALCIUM, SERUM 8.6 mg/dL (8.5-10.1); CARBON DIOXIDE 25 mmol/L (21-32); CHLORIDE 102 mmol/L (98-107); CREATININE 1.7 mg/dL (0.6-1.3); GLUCOSE 111 mg/dL (74-106); MAGNESIUM 1.7 mg/dL (1.8-2.4); PHOSPHORUS 4.2 mg/dL (2.5-4.9); POTASSIUM 3.3 mmol/L (3.5-5.1); SODIUM SERUM 140 mmol/L (136-145); TOTAL PROTEIN, SERUM 6.3 g/dL (6.4-8.2); UREA NITROGEN, BLOOD 28 mg/dL (7-18)
[2020-11-13 08:17] VITALS: BP 90/51
[2020-11-13 08:24] LABS: EOSINOPHILS % (MANUAL) 2 % (0-4); LYMPHOCYTES % (MANUAL) 6 % (16-48); MONOCYTES % (MANUAL) 9 % (0-11.0); NEUTROPHILS % (MANUAL) 83 (42-76)
[2020-11-13] MEDS: CARVEDILOL 6.25 MG TABLET PO SCH ×2 (09:00→17:14)
[2020-11-13] MEDS ORDERED: Magnesium 1GM/D5W 100ML PREMIX 100 ML IV SCH (09:00)
[2020-11-13] MEDS: ISOSORBIDE MONONITRATE (30MG) 30 MG TAB.SR.24H PO SCH (09:00)
[2020-11-13] MEDS: ASPIRIN 81 MG TAB.CHEW PO SCH (09:00)
[2020-11-13] MEDS: DOCUSATE SODIUM 100 MG CAPSULE PO SCH ×2 (09:15→17:15)
[2020-11-13] MEDS: PANTOPRAZOLE 40 MG TABLET.DR PO SCH (09:15)
[2020-11-13] MEDS: LEVOTHYROXINE SODIUM 50 MCG TABLET PO SCH (09:15)
[2020-11-13] MEDS: POTASSIUM CHLORIDE 20 MEQ TAB.PRT.SR PO SCH ×3 (09:16→11:43)
[2020-11-13] MEDS: CLOPIDOGREL BISULFATE 75 MG TABLET PO SCH (09:18)
[2020-11-13] MEDS: TIMOLOL 0.5% SOLN OPHTH 5 ML BOTTLE EACHEYE SCH ×2 (09:21→17:14)
[2020-11-13] MEDS ORDERED: methylPREDNISolone SOD SUCC 125 MG/2ML VIAL IV SCH (12:00)
[2020-11-13] MEDS ORDERED: ZINC OXIDE 56.7 GM TUBE TP PRN (12:30)
--- NOTE | 2020-11-13 12:30 | NUR ---
marcial buck canopy stringer in and informed of pt. status,along with asa and morphine allergies.aware centinela called with positive c diff on last stool sent.
[2020-11-13] MEDS ORDERED: TEMAZEPAM 15 MG CAPSULE PO PRN (13:30)
[2020-11-13] MEDS: ACIDOPHILUS/BULGARICUS 1 EACH TAB.CHEW PO SCH ×2 (13:46→17:14)
[2020-11-13] MEDS: VANCOMYCIN HCL 125 MG/2.5 ML ORAL.SUSP PO SCH ×2 (13:47→17:14)
[2020-11-13] MEDS: HYDROCODONE/APAP 5/325MG TABLET PO PRN (13:57)
--- NOTE | 2020-11-13 13:57 | NUR ---
med for antione. leg pain with norco.
[2020-11-13 16:00] VITALS: BP 131/66
--- NOTE | 2020-11-13 16:40 | NUR ---
SS Consult requested for Hx. of fall, & safe D/C planning. The pt. is a 85 year old female who came to [facility] ED with C/O dizziness and tingling in her arms per EMR. WALE met with pt. bedside. The pt. is A& O X 3. The pt. appears well-groomed, heavy set, w/euphoric mood. The pt. remained calm & cooperative throughout interview. Patient lives alone at [address] [place] [phone]. Patient has an open case with [facility] [phone] per note. Pt. stated that she has a food motor vehicle license clerk, [employer] [phone]. Patient stated her daughter, Carmenza Owens [phone] is involved in her life. Family able to provide transportation upon discharge per CM note. Pt. stated she does not need any further services at home. WALE provided pt. with senior resources and pt. accepted them
--- NOTE | 2020-11-13 16:41 | NUR ---
zinc oxide to buttocks.
--- NOTE | 2020-11-13 19:16 | NUR ---
MS RN: CONTINUITY OF CARE Patient in bed, awake, A/O x4. Tolerating room air, no c/o shortness of breath. Isolation precaution. Maintained safety.
[2020-11-13 20:00] VITALS: BP 106/52
[2020-11-13] MEDS: FLUOXETINE HCL 20 MG CAPSULE PO SCH (21:38)
[2020-11-13] MEDS: BIMATOPROST 2.5 ML DROPS OP SCH (21:39)
[2020-11-14] MEDS: VANCOMYCIN HCL 125 MG/2.5 ML ORAL.SUSP PO SCH ×5 (00:01→23:00)
[2020-11-14] MEDS: HYDROCODONE/APAP 5/325MG TABLET PO PRN ×3 (03:47→20:44)
--- NOTE | 2020-11-14 03:47 | NUR ---
MS RN: ABDOMEN PAIN Patient c/o abdomen pain, described as aching and sharp 12/08. PRN [place]ring given, will reassess.
--- NOTE | 2020-11-14 04:47 | NUR ---
MS RN: PAIN REASSESSMENT Patient reports less adb pain 3/10. PRN norco effective.
--- NOTE | 2020-11-14 06:09 | NUR ---
MS RN: END OF SHIFT REPORT Patient in bed. Abdomen pain improved with PRN Fraser, denies N/V. Episode of liquid stool x3, on Vanco PO, afebrile. Isolation precaution. Will endorse to oncoming RN.
[2020-11-14 07:23] LABS: BASOPHILS # (AUTO) 0.1 /CMM (0.0-0.2); BASOPHILS % (AUTO) 0.6 % (0.0-2.0); EOSINOPHILS % (AUTO) 2.5 % (0.0-6.0); HEMATOCRIT 44 % (33-45); HEMOGLOBIN 14.4 g/dL (11.5-14.8); MEAN CORPUSCULAR HGB CONC 33 g/dl (31.0-36.0); MEAN CORPUSCULAR VOLUME 94 fL (82-100); MONOCYTES # (AUTO) 1.2 /CMM (0.1-1.30); MONOCYTES % (AUTO) 13.9 % (2.0-12.0); NEUTROPHILS # (AUTO) 5.9 /CMM (1.8-8.9); PLATELET COUNT (AUTO) 198 /CMM (150-450); RED BLOOD CELL COUNT(AUTO) 4.65 MIL/uL (4.0-5.2); WHITE BLOOD COUNT (AUTO) 8.4 K/uL (4.3-11.0)
[2020-11-14 07:44] LABS: ALANINE AMINOTRANSFERASE 18 U/L (12-78); ALBUMIN 3.3 g/dL (3.4-5.0); ALKALINE PHOSPHATASE 88 U/L (46-116); ASPARTATE AMINOTRANSFERASE 16 U/L (15-37); BILIRUBIN,TOTAL 0.9 mg/dL (0.2-1.0); CALCIUM, SERUM 8.7 mg/dL (8.5-10.1); CARBON DIOXIDE 23 mmol/L (21-32); CHLORIDE 105 mmol/L (98-107); CREATININE 1.8 mg/dL (0.6-1.3); GLUCOSE 89 mg/dL (74-106); PHOSPHORUS 4.3 mg/dL (2.5-4.9); POTASSIUM 4.3 mmol/L (3.5-5.1); SODIUM SERUM 140 mmol/L (136-145); TOTAL PROTEIN, SERUM 6.6 g/dL (6.4-8.2); UREA NITROGEN, BLOOD 34 mg/dL (7-18)
[2020-11-14 08:00] VITALS: BP 138/75
--- NOTE | 2020-11-14 08:00 | NUR ---
RN OPENING NOTE RECEIVED PATIENT IN BED, AO X 4 FORGETFULNESS, ABLE TO RESPONDS ALL STIMULI. NO S/S OF DISTRESS OBSERVED. SKIN IS WARM TO TOUCH KEEP CLEAN/DRY, INTACT IV SITE. RESPIRATORY EVEN AND UNLABORED IN ROOM AIR, NO DISTRESS OBSERVED. KEPT ELEVATED HOB FOR ENSURE AIRWAY AND ASPIRATION PRECAUTION, ALSO LOWEST BED POSITION FOR SAFETY. CALL LIGHT WITHIN REACH, WILL CONTINUE TO MONITOR.
--- NOTE | 2020-11-14 09:00 | NUR ---
PATIENT C/O LEGS AND FEET PAIN 12/08, GIVEN NORCO 5/325MG.
[2020-11-14] MEDS: PANTOPRAZOLE 40 MG TABLET.DR PO SCH (09:07)
[2020-11-14] MEDS: ACIDOPHILUS/BULGARICUS 1 EACH TAB.CHEW PO SCH ×3 (09:07→17:13)
[2020-11-14] MEDS: DOCUSATE SODIUM 100 MG CAPSULE PO SCH ×2 (09:07→17:00)
[2020-11-14] MEDS: LEVOTHYROXINE SODIUM 50 MCG TABLET PO SCH (09:07)
[2020-11-14] MEDS: ISOSORBIDE MONONITRATE (30MG) 30 MG TAB.SR.24H PO SCH (09:07)
[2020-11-14] MEDS: CARVEDILOL 6.25 MG TABLET PO SCH ×2 (09:08→17:00)
[2020-11-14] MEDS: CLOPIDOGREL BISULFATE 75 MG TABLET PO SCH (09:08)
[2020-11-14] MEDS: TIMOLOL 0.5% SOLN OPHTH 5 ML BOTTLE EACHEYE SCH ×2 (09:10→17:17)
--- NOTE | 2020-11-14 09:46 | NUR ---
PATIENT DONE PT, ABLE TO WALK WITH WALKER, PAIN SCALE ONE OUT OF 10.
[2020-11-14] MEDS: IV NS 0.9% 1,000 ML IV PRN (09:55)
[2020-11-14] MEDS: TIZANIDINE HCL 4 MG TABLET PO PRN (11:35)
--- NOTE | 2020-11-14 12:45 | NUR ---
PATIENT REQUESTED ALMENDAREZ OUT FROM SAFETY BOX AND RETURNED ALMENDAREZ TO PATIENT.
[2020-11-14 16:00] VITALS: BP 108/58
--- NOTE | 2020-11-14 17:24 | NUR ---
PATIENT HAS BEEN DIARRHEA, WILL HOLD STOOL SOFTENER.
--- NOTE | 2020-11-14 18:54 | NUR ---
RN CLOSING NOTE PATIENT RESTING IN ROOM, DOES NO OBSERVED DISTRESS OR SI/HI BEHAVIOR. SKIN IS WARM TOUCH, KEEP CLEAN/DRY. RESPIRATORY EVEN AND UNLABORED ON ROOM AIR. KEPT ELEVATED HOB FOR ENSURE AIRWAY, ALSO LOWEST BED POSITION FOR SAFETY. DTR AT BED SIDE, CALL LIGHT WITHIN REACH, WILL ENDORSE MOLDED GOODS INSPECTOR TRIMMER.
[2020-11-14 20:00] VITALS: BP 108/64
[2020-11-14] MEDS ORDERED: TIZANIDINE HCL 4 MG TABLET PO PRN (20:00)
--- NOTE | 2020-11-14 20:44 | NUR ---
RN Notes Patient c/o 7/10 pain. Patient was given 1 tablet of Deforest 5-325mg by mouth. Will continue to monitor the patient.
[2020-11-14] MEDS: FLUOXETINE HCL 20 MG CAPSULE PO SCH (21:40)
[2020-11-14] MEDS: LATANOPROST EYE DROP 0.005% 2.5 ML BOTTLE OP SCH (21:44)
[2020-11-15] VITALS (31 sets, daily range): BP systolic 96–181; BP diastolic 41–113
--- NOTE | 2020-11-15 01:00 | NUR ---
RN Notes Patient was lying on her bed awake around 0100 and was inquiring about her medications. Patient was speaking normally and then suddenly was having severe slurred speech. A Rapid Response was called at 0108 and a Code Stroke was called at 0114. The patient's vitals are: HR: 67, KI=238/54, and Temperature=97.8. The On-Call MD was made aware and ordered a CT scan and then stated to follow-up with the Tele-Neurologist for new orders after they assess the patient. The Tele-Neurologist assessed the patient and recommended TPA then a CT Angiogram completed. The patient consented to have TPA to be administered to her. The patient was transferred to the ICU where TPA will be administered to the patient. Hand-off report was given to the ICU Nurse Silvia.
[2020-11-15] MEDS ORDERED: CT SWABBABLE VALVE TRANS SET 1 EA INFUS.SET MC ONE (01:30)
[2020-11-15] MEDS ORDERED: IOHEXOL-350 100 ML VIAL IV ONE (01:30)
[2020-11-15] MEDS ORDERED: IV NS 0.9% 250 ML IV ONE (01:30)
[2020-11-15 01:56] LABS: BASOPHILS # (AUTO) 0.1 /CMM (0.0-0.2); BASOPHILS % (AUTO) 0.8 % (0.0-2.0); EOSINOPHILS % (AUTO) 3.8 % (0.0-6.0); HEMATOCRIT 40 % (33-45); HEMOGLOBIN 13.1 g/dL (11.5-14.8); LYMPHOCYTES # (AUTO) 1.2 /CMM (0.8-4.8); LYMPHOCYTES % (AUTO) 14.6 % (20.0-44.0); MEAN CORPUSCULAR HGB CONC 33 g/dl (31.0-36.0); MEAN CORPUSCULAR VOLUME 95 fL (82-100); MONOCYTES # (AUTO) 1.3 /CMM (0.1-1.30); MONOCYTES % (AUTO) 16.2 % (2.0-12.0); NEUTROPHILS # (AUTO) 5.2 /CMM (1.8-8.9); NEUTROPHILS % (AUTO) 64.6 % (43.0-81.0); PLATELET COUNT (AUTO) 192 /CMM (150-450)
[2020-11-15 02:24] LABS: CALCIUM, SERUM 8.4 mg/dL (8.5-10.1); CARBON DIOXIDE 25 mmol/L (21-32); CHLORIDE 104 mmol/L (98-107); CREATININE 1.9 mg/dL (0.6-1.3); GLUCOSE 93 mg/dL (74-106); POTASSIUM 4.2 mmol/L (3.5-5.1); SODIUM SERUM 138 mmol/L (136-145); UREA NITROGEN, BLOOD 43 mg/dL (7-18)
--- NOTE | 2020-11-15 02:27 | NUR ---
RN/ICU- RECEIVED PT. FROM [address] [place] [address] BY BED PER ACLS PROTOCOL. S/P CODE STROKE. ROUTINE ICU ADMISSION CARE INITIATED.PT. IS TO RECEIVED TPA PER PROTOCOL RECOMMENDED BY TELE NEUROLOGIST DR. Loly MARTINEZ, PER DR. SAEED ORDER. INITIAL ASSESSMENT DONE. PT. IS AWAKE, ALERT, ORIENTED X4, EXPRESSIVE OF NEEDS, NO MOTOR OR NEURO DEFICIT NOTED, NO SLURRED SPEECH. AT THIS TIME PT. DECIDED TO REFUSE TPA. EKG SR HR-64/MIN. BP-138/54. WILL NOTIFY DR. SAEED REGARDING CURRENT PT. NEURO STATUS AND REFUSAL FOR TPA.
--- NOTE | 2020-11-15 02:40 | NUR ---
RN/ICU- DR. SAEED WAS CALLED THRU SERVICE.
--- NOTE | 2020-11-15 02:51 | NUR ---
RN/ICU- DR. SAEED CALLED BACK MADE AWARE OF ABOVE ISSUES AND RECOMMENDED TO NOTIFY TELE NEUROLOGIST REGARDING PT.CURRENT NEURO STATUS, TPA REFUSAL AND CT ANGIO WHICH WAS ORDERED TO BE DONE POST TPA.
[2020-11-15 02:53] LABS: EOSINOPHILS % (MANUAL) 6 % (0-4); LYMPHOCYTES % (MANUAL) 14 % (16-48); MONOCYTES % (MANUAL) 8 % (0-11.0); NEUTROPHILS % (MANUAL) 72 (42-76)
--- NOTE | 2020-11-15 02:56 | NUR ---
RN/ICU- ABLE TO GET HOLD OF TELE NEUROLOGIST DR. Loly MARTINEZ BY PHONE AND MADE HIM AWARE OF THE SITUATION W/ RECOMMENDATION TO DC TPA, AND CT ANGIO, RECOMMENDED ASA 325MG PO AND ATORVASTATIN 80 MG PO X1 NOW. ALSO RECOMMENDED A ROUTINE MRI OF BRAIN.
--- NOTE | 2020-11-15 03:05 | NUR ---
RN/ICU- DR. SAEED WAS CALLED THRU SERVICE.
--- NOTE | 2020-11-15 03:19 | NUR ---
RN/ICU- PT. SUDDENLY DEVELOPED BURNING SENSATION UNDER LEFT BREAST, W/ DIFFICULTY ARTICULATING WORDS W/ WEAKNESS OF LEFT LEG.
--- NOTE | 2020-11-15 03:20 | NUR ---
RN/ICU- DR. SAEED CALLED BACK MADE AWARE OF DR. MARTINEZ'S RECOMMENDATION W/ ORDERS TO CARRY OUT RECOMMENDATIONS. SAME MADE AWARE OF PT. CURRENT NEURO CHANGE. ALSO STATED TO NOTIFY [facility] IN AM REGARDING THE MRI OF BRAIN RECOMMENDED BY DR. MARTINEZ. WILL CONSULT NEUROLOGIST IN AM PER DR. SAEED ORDER.
--- NOTE | 2020-11-15 03:30 | NUR ---
RN/ICU- AT THIS TIME PT. NOTED TO BE BACK TO NORMAL SPEECH W/ NO NEURO DEFICIT. WILL CONTINUE TO MONITOR PT. CLOSELY PER PROTOCOL. Addendum: 11/15/20 at 0518 by JERRY PÉREZ RN NO NEURO OR MOTOR DEFICIT NOTED WELL
[2020-11-15] MEDS ORDERED: ASPIRIN 325 MG TABLET PO STA (03:35)
[2020-11-15] MEDS ORDERED: ATORVASTATIN 40 MG TABLET PO STA (03:35)
[2020-11-15] MEDS: VANCOMYCIN HCL 125 MG/2.5 ML ORAL.SUSP PO SCH ×3 (05:55→17:04)
[2020-11-15] MEDS: IV NS 0.9% 1,000 ML IV PRN ×2 (06:00→06:12)
--- NOTE | 2020-11-15 07:40 | NUR ---
ICU/RN PT IS RESTING IN THE BED.AWAKE,A/O-4.V/SSTABLE,AFEBRILE.NO PAIN REPORTED AT THIS TIME.ON ROOM AIR,SAT O2-96-97%.PRIFERAL IV INFUSING WITH NS AT 50 ML/HR.PT WAS TRANSFERED LAST NIGHT ,POST CODE STROKE. WAITING FOR THE NEUROLOGIST CONSULTATION.
--- NOTE | 2020-11-15 09:00 | NUR ---
ICU/RN DUE MEDS ARE GIVEN ORDERED.PT EATS 100% FROM HER BREAKFAST TRAY.
[2020-11-15] MEDS: CLOPIDOGREL BISULFATE 75 MG TABLET PO SCH (09:04)
[2020-11-15] MEDS: DOCUSATE SODIUM 100 MG CAPSULE PO SCH ×2 (09:04→17:05)
[2020-11-15] MEDS: LEVOTHYROXINE SODIUM 50 MCG TABLET PO SCH (09:05)
[2020-11-15] MEDS: CARVEDILOL 6.25 MG TABLET PO SCH ×2 (09:05→17:05)
[2020-11-15] MEDS: ACIDOPHILUS/BULGARICUS 1 EACH TAB.CHEW PO SCH ×3 (09:05→17:05)
[2020-11-15] MEDS: PANTOPRAZOLE 40 MG TABLET.DR PO SCH (09:05)
[2020-11-15] MEDS: ISOSORBIDE MONONITRATE (30MG) 30 MG TAB.SR.24H PO SCH (09:05)
[2020-11-15] MEDS: TIMOLOL 0.5% SOLN OPHTH 5 ML BOTTLE EACHEYE SCH ×2 (10:08→17:05)
--- NOTE | 2020-11-15 13:58 | NUR ---
ICU/RN PT HAS NO ASPIRIN ALLERGY. SHE SAID SHE USE TO TAKE ASPIRIN FOR PAIN 2-3 TABLETS AT THE TIME .AND SHE HAD GI BLEED IN THE PAST.MD AWARE.ASPIRIN ORDERED.PHARMACY NOTIFIED.
--- NOTE | 2020-11-15 18:00 | NUR ---
ICU/RN PM CARE PROVIDED.DUE MEDS ARE GIVEN ORDERED.V/S STABLE ,AFEBRILE.NO PAIN REPORTED AT THIS TIME.PT IS RESTING IN THE BED .
--- NOTE | 2020-11-15 20:00 | NUR ---
RN NOTES RECEIVED PATIENT AWAKE ALERT x 4 . DENIED ANY PAIN, AFEBRILE. VERBALIZED NEEDS AND FEELINGS. NEUROCHECKED DONE , NO CHANGE OF MENTAL CONDITION REMAINED INTACT,BUE AND BLE WNL, NO WEAKNESS, NO DYSPHASIA. NO DROOPING, DENNIES PAIN . SR ON MONITOR. IV SITE ON RAC G 18 AND RFA G 22 INTACT AND PATENT.ISOLATION PRECAUTION FOR C DIFF IMPLEMENTED. KEPT PT CLEAN AND COMFORTABLE IN BE. CALL LIGHT KEPT WITHIN EASY REACH WILL CONTINUE TO MONITOR.
[2020-11-15] MEDS: FLUOXETINE HCL 20 MG CAPSULE PO SCH (21:00)
[2020-11-15] MEDS: LATANOPROST EYE DROP 0.005% 2.5 ML BOTTLE OP SCH (21:00)
[2020-11-16] VITALS (12 sets, daily range): BP systolic 117–149; BP diastolic 48–68
--- NOTE | 2020-11-16 | NUR ---
RN NOTES PERICARE PROVIDED. NO CHANGE OF MENTAL STATUS , DENIES ANY WEAKNESS OR PAIN. PATIENT BACK TO SLEEP
[2020-11-16] MEDS: VANCOMYCIN HCL 125 MG/2.5 ML ORAL.SUSP PO SCH ×5 (00:34→23:18)
--- NOTE | 2020-11-16 06:33 | NUR ---
RN NOTES PATIENT ASLEEP WELL ON BED. BREATHING EVEN AND UNLABORED ON ROOM AIR. SATURATION > 92% AFEBRILE. VSS. DENIES PAIN. NSR ON MONITOR. NO FURTHER ARM OR LEG WEAKNESS, NO FACIAL DROOPING , NO CHANGE OF MENTAL STATUS. INCONTINENT CARE RENDERED PATIENT REQUESTED. NO SIGNIFICANT CHANGES THROUGHOUT THE SHIFT. KEPT PT CLEAN AND COMFORTABLE IN BED. WILL CONTINUE POC.
--- NOTE | 2020-11-16 07:15 | NUR ---
OENOLOGIST NOTES RECEIVED PATIENT IN BED RESTING COMFORTABLY IN MODERATE HIGH BACK REST. A/O X4. ABLE TO MAKE NEEDS KNOWN, DENIED ANY PAIN, AFEBRILE. NEUROCHECKED DONE , NO CHANGE OF MENTAL CONDITION REMAINED INTACT, BUE AND BLE WNL, NO WEAKNESS, NO DYSPHASIA. NO DROOPING, SR ON MONITOR. IV SITE ON RAC G 18 AND RFA G 22 INTACT AND PATENT.ISOLATION PRECAUTION FOR C DIFF MAINTAINED. SAFETY MEASURES IN PLACE, BED IN LOWEST LOCKED POSITION, CALL LIGHT KEPT WITHIN EASY REACH. WILL CONTINUE TO MONITOR.
[2020-11-16] MEDS: ISOSORBIDE MONONITRATE (30MG) 30 MG TAB.SR.24H PO SCH (08:10)
[2020-11-16] MEDS: ASPIRIN 81 MG TAB.CHEW PO SCH (08:10)
[2020-11-16] MEDS: DOCUSATE SODIUM 100 MG CAPSULE PO SCH ×2 (08:10→16:21)
[2020-11-16] MEDS: ACIDOPHILUS/BULGARICUS 1 EACH TAB.CHEW PO SCH ×3 (08:10→16:21)
[2020-11-16] MEDS: PANTOPRAZOLE 40 MG TABLET.DR PO SCH (08:10)
[2020-11-16] MEDS: TIMOLOL 0.5% SOLN OPHTH 5 ML BOTTLE EACHEYE SCH ×2 (08:11→17:54)
[2020-11-16] MEDS: CARVEDILOL 6.25 MG TABLET PO SCH ×2 (08:11→16:22)
[2020-11-16] MEDS: CLOPIDOGREL BISULFATE 75 MG TABLET PO SCH (08:11)
[2020-11-16] MEDS: LEVOTHYROXINE SODIUM 50 MCG TABLET PO SCH (08:11)
--- NOTE | 2020-11-16 10:46 | NUR ---
RN NOTES TRANSFERRED TO 323-1 PER ACLS PROTOCOL, NO SIGNS OF DISTRESS, VSS, BEDSIDE REPORT GIVEN TO ALIDA CURIEL. ALL BELONGINGS WITH PATIENT,MEDICATIONS AND CHART GIVEN TO ALIDA CURIEL.
--- NOTE | 2020-11-16 10:50 | NUR ---
AUTOMOTIVE PARTS INTERPRETERGAMBLING MONITOR NOTES RECEIVED PATIENT IN VIA GURNEY. PATIENT IS A/O X4. ABLE TO MAKE NEEDS KNOWN, DENIED ANY PAIN. PATIENT IS BREATHING EVENLY AND NONLABORED ON ROOM AIR. IV SITE ON RAC G 18 AND RFA G 22 INTACT AND PATENT. PATIENT HAS ISOLATION PRECAUTION FOR C DIFF. SAFETY MEASURES IN PLACE, BED IN LOWEST LOCKED POSITION, CALL LIGHT KEPT WITHIN EASY REACH. WILL CONTINUE TO MONITOR.
--- NOTE | 2020-11-16 13:40 | NUR ---
RN NOTE RADIOLOGY CALLED, WANTED TO HOLD CTA PROCEDURE DUE TO HIGH CREATINE AND BUN. MD NOTIFIED. BMP ORDERED FOR TOMORROW WILL CONTINUE TO MONITOR
[2020-11-16] MEDS ORDERED: IV NS 0.9% 1,000 ML IV ONE (15:00)
--- NOTE | 2020-11-16 15:10 | NUR ---
WOOD CARVER HAND CLARK WHATLEY FROM LAB CALLED TO RELAY LACTIC ACID RESULT OF 4.2. CHARGE NURSE IMMACULATE NOTIFIED. DR. ROSINA OGDEN NOTIFIED WITH ORDER TO GIVE 1 LITER NS BOLUS. ORDER READ BACK AND VERIFIED. WILL CONTINUE TO MONITOR PATIENT. Addendum: 11/18/20 at 2058 by LYNDON CRENSHAW RN PLS DISREGARD, WRONG ENTRY
--- NOTE | 2020-11-16 15:50 | NUR ---
Steel Spar Operator consult: social services aide consult requested for stroke. Patient is a 85-year-old female. SW met with patient at her bedside in the med-surg unit. Patient alert and oriented x4. Patient stated that she is currently living at [address] [place] [address]; [phone]. Patient stated that she currently has two caretakers come to her residence 2x/week. Patient stated that she is independent with her ADLs. Patient stated that she receives SSI as a source of income. Patient denied substance use. Patient denied history of mental illness. Patient denied suicidal or homicidal ideation. SW offered patient stroke resource, "Empowerment After Stroke." Patient accepted the resources. SW administered PHQ-9 assessment and patient's score was 1 (feeling tired or having little energy). Patient stated that she will return to her prior living arrangement at the time of discharge. Patient plans to take a taxi for transportation. PLAN: Patient will return to prior living arrangement. No further SS intervention, however, SW will remain available as needed.
--- NOTE | 2020-11-16 17:30 | NUR ---
SOIL SURVEYOR NOTE CHACORTA OF LAB CALLED TO RELAY LATEST LACTIC ACID RESULT OF 3.7. CHARGE NURSE FERNANDO AND DR. ROSINA OGDEN NOTIFIED WITH NO NEW ORDER AT THIS TIME. WILL CONTINUE TO MONITOR PATIENT. IV BOLUS DONE EARLIER ORDERED. Addendum: 11/18/20 at 2057 by LYNDON CRENSHAW RN DISREGARD PLS. WRONG ENTRY
--- NOTE | 2020-11-16 18:45 | NUR ---
PAINTER SPRAY CLOSING NOTES PATIENT IS RESTING IN BED PATIENT IS A/O X4. ABLE TO MAKE NEEDS KNOWN, DENIED ANY PAIN. PATIENT IS BREATHING EVENLY AND NONLABORED ON ROOM AIR. IV SITE ON RAC G 18 AND RFA G 22 RUNNING NS @ 100ML/HR, INTACT AND PATENT. PATIENT HAS ISOLATION PRECAUTION FOR C DIFF. PATIENT IS ON TELE MONITOR SHOWING NSR @ 80 BPM. ALL MEDICATIONS GIVEN ORDERED. SAFETY MEASURES IN PLACE, BED IN LOWEST LOCKED POSITION, CALL LIGHT KEPT WITHIN EASY REACH. WILL ENDORSE TO ONCOMING SHIFT.
--- NOTE | 2020-11-16 20:03 | NUR ---
FOLDER OPERATOR OPENING NOTE PATIENT A/OX4 IN BED; ABLE TO MAKE NEEDS KNOWN. TOLERATING ROOM AIR WELL WITH NO SOB. RAC #18G S/L. RFA #22 NS @ 100ML/HR; PATENT AND INTACT. NO S/SX OF PAIN OR DISCOMFORT AT THIS TIME. SAFETY MEASURES IN PLACE: BED IN LOWEST LOCKED POSITION, SIDE RAILS UPX2, CALL LIGHT WITHIN EASY REACH, BED ALARMS ON. PATIENT IN STABLE CONDITION, WILL CONTINUE PLAN OF CARE.
[2020-11-16] MEDS: LATANOPROST EYE DROP 0.005% 2.5 ML BOTTLE OP SCH (21:45)
[2020-11-16] MEDS: FLUOXETINE HCL 20 MG CAPSULE PO SCH (21:45)
[2020-11-17] VITALS: BP 134/69
[2020-11-17] MEDS: VANCOMYCIN HCL 125 MG/2.5 ML ORAL.SUSP PO SCH ×3 (05:44→18:00)
[2020-11-17 06:00] VITALS: BP 146/76
[2020-11-17 06:33] LABS: BASOPHILS # (AUTO) 0.1 /CMM (0.0-0.2); BASOPHILS % (AUTO) 0.9 % (0.0-2.0); EOSINOPHILS % (AUTO) 3.2 % (0.0-6.0); HEMATOCRIT 40 % (33-45); HEMOGLOBIN 13.4 g/dL (11.5-14.8); LYMPHOCYTES % (AUTO) 14.5 % (20.0-44.0); MEAN CORPUSCULAR HGB CONC 33 g/dl (31.0-36.0); MEAN CORPUSCULAR VOLUME 94 fL (82-100); MONOCYTES # (AUTO) 0.8 /CMM (0.1-1.30); MONOCYTES % (AUTO) 11.7 % (2.0-12.0); NEUTROPHILS # (AUTO) 4.9 /CMM (1.8-8.9); NEUTROPHILS % (AUTO) 69.7 % (43.0-81.0); PLATELET COUNT (AUTO) 197 /CMM (150-450); RED BLOOD CELL COUNT(AUTO) 4.29 MIL/uL (4.0-5.2); WHITE BLOOD COUNT (AUTO) 7.1 K/uL (4.3-11.0)
--- NOTE | 2020-11-17 06:44 | NUR ---
STRUCTURAL TEST ENGINEER OPENING NOTE PATIENT A/OX4 IN BED; ABLE TO MAKE NEEDS KNOWN. TOLERATING ROOM AIR WELL WITH NO SOB. EXTERNAL SENIOR SSIS DEVELOPER READS SR AT 64. RFA #22 NS TKO; PATENT AND INTACT. NO S/SX OF PAIN OR DISCOMFORT AT THIS TIME. SAFETY MEASURES IN PLACE: BED IN LOWEST LOCKED POSITION, SIDE RAILS UPX2, CALL LIGHT WITHIN EASY REACH, BED ALARMS ON. PATIENT IN STABLE CONDITION, WILL ENDOSE PLAN OF CARE TO ONCOMING MORNING RN.
--- NOTE | 2020-11-17 06:45 | NUR ---
AMUSEMENT PARK ENTERTAINER CLOSING NOTE PATIENT A/OX4 IN BED; ABLE TO MAKE NEEDS KNOWN. TOLERATING ROOM AIR WELL WITH NO SOB. EXTERNAL MEAT PASSER READS SR AT 64. RFA #22 NS TKO; PATENT AND INTACT. NO S/SX OF PAIN OR DISCOMFORT AT THIS TIME. SAFETY MEASURES IN PLACE: BED IN LOWEST LOCKED POSITION, SIDE RAILS UPX2, CALL LIGHT WITHIN EASY REACH, BED ALARMS ON. PATIENT IN STABLE CONDITION, WILL ENDORSE PLAN OF CARE TO ONCOMING MORNING RN.
[2020-11-17 06:50] LABS: CALCIUM, SERUM 8.5 mg/dL (8.5-10.1); CREATININE 1.2 mg/dL (0.6-1.3); POTASSIUM 4.3 mmol/L (3.5-5.1)
--- NOTE | 2020-11-17 07:15 | NUR ---
INFORMATICS NURSE OPENING NOTE PATIENT ALERT AND ORIENTED X4 IN BED. PATIENT ON ROOM AIR WITH NO SIGN OF DISTRESS, WITH UNLABORED BREATHING AND EVEN BREATHING. PATIENT WITH IV ACCESS ON RIGHT FOREARM G20, ON HEPLOCK. PATENT AND INTACT. PATIENT ON EXTERNAL CIRCULATING NURSE WITH NORMAL SR AT 70. BED IN LOWEST POSITION AND LOCKED IN PLACE, WITH SIDERAILS UP FOR SAFETY. CALL LIGHT WITHIN REACH AT ALL TIMES. WILL CONTINUE TO MONITOR PATIENT.
[2020-11-17] MEDS: CLOPIDOGREL BISULFATE 75 MG TABLET PO SCH (09:08)
[2020-11-17] MEDS: ACIDOPHILUS/BULGARICUS 1 EACH TAB.CHEW PO SCH ×3 (09:08→16:29)
[2020-11-17] MEDS: ASPIRIN 81 MG TAB.CHEW PO SCH (09:08)
[2020-11-17] MEDS: PANTOPRAZOLE 40 MG TABLET.DR PO SCH (09:09)
[2020-11-17] MEDS: ISOSORBIDE MONONITRATE (30MG) 30 MG TAB.SR.24H PO SCH (09:10)
[2020-11-17] MEDS: CARVEDILOL 6.25 MG TABLET PO SCH ×2 (09:10→16:30)
[2020-11-17] MEDS: DOCUSATE SODIUM 100 MG CAPSULE PO SCH ×2 (09:10→16:29)
[2020-11-17] MEDS: TIMOLOL 0.5% SOLN OPHTH 5 ML BOTTLE EACHEYE SCH ×2 (09:11→17:00)
[2020-11-17] MEDS: LEVOTHYROXINE SODIUM 50 MCG TABLET PO SCH (09:11)
--- NOTE | 2020-11-17 11:10 | NUR ---
SORTER/ASSAY TECH NOTE SPOKE WITH RA. PATIENT NEEDS ANOTHER ACCESS FOR CTCA PREVIOUSLY SCHEDULED. IV ACCESS INSERTED, PATENT AND INTACT.
[2020-11-17] MEDS ORDERED: IOHEXOL-350 100 ML VIAL IV ONE ×2 (11:18→14:54)
[2020-11-17] MEDS ORDERED: IV NS 0.9% 0 ML IV ONE (11:18)
--- NOTE | 2020-11-17 14:30 | NUR ---
HEALTH COACH NOTE CTCA DONE ORDERED. PATIENT BACK IN HER ROOM. WILL CONTINUE TO MONITOR PATIENT.
[2020-11-17] MEDS ORDERED: CT SWABBABLE VALVE TRANS SET 1 EA INFUS.SET MC ONE (14:54)
[2020-11-17] MEDS ORDERED: IV NS 0.9% 250 ML IV ONE (14:54)
[2020-11-17] MEDS: HYDROCODONE/APAP 5/325MG TABLET PO PRN ×2 (16:31→18:41)
--- NOTE | 2020-11-17 16:31 | NUR ---
RUG SCRATCHER NOTE PATIENT COMPLAINED OF HEADACHE THAT COMES AND GOES UP TO 6/10. PATIENT ASKED FOR PAIN MEDICATION AND WAS GIVEN NORCO. INITIALLY, PATIENT WAS ASKING FOR MORPHINE BUT IT WAS EXPLAINED TO THE PATIENT THAT SHE HAS AN ALLERGY TO MORPHINE. PATIENT VERBALIZED UNDERSTANDING AND APPRECIATION. WILL CONTINUE TO MONITOR PATIENT.
--- NOTE | 2020-11-17 17:31 | NUR ---
SYSTEMS TESTING LABORATORY TECHNICIAN NOTE PATIENT REASSESSED FOR PAIN. SHE SAID, PAIN IS GONE NOW BUT SHE THINKS IT MIGHT COME BACK AGAIN. DR. SARAH AWARE. WILL CONTINUE TO MONITOR PATIENT.
--- NOTE | 2020-11-17 18:15 | NUR ---
RESPONDED TO CODE STROKE, PER RN , NOTED FACIAL DROOP AND STUTTERING SPEECH. PATIENT SEEN , ABLE TO ANSWER QUESTIONS APPROPTAIATELY, ALL EXTREMITIES WITH EQUAL STRENGHT. ABLE TO SPEAK CLEARLY WHEN ASKED TO SLOW DOWN. CALL PLACE TO HOSPITALIST ROD MICHAEL, MIMICEL CODE STROKE, STAT HEAD CT WITHOUT CONTRAST ORDERED.
--- NOTE | 2020-11-17 18:15 | NUR ---
FIRE EXTINGUISHER MECHANIC NOTE AT AROUND 1753, THIS NURSE WAS CALLED TO CHECK ON THE PATIENT BECAUSE APPARENTLY, PATIENT'S FRIEND CALLED TO SAY THAT HER FRIEND IS HAVING A STROKE. I IMMEDIATELY WENT TO THE PATIENT'S ROOM AND NOTED THAT THE PATIENT WAS STUTTERING BUT NO SLURRING OF SPEECH NOTED. CHARGE NURSE IMMACULATE NOTIFIED AND REASSESSED THE PATIENT. PATIENT WITH BRISK AND REACTIVE PUPILS, NO MOTOR SENSORY DEFICIT NOTED, BUT WITH SOME FACIAL ASSYMETRY WITH LEFT SIDE THAN THE RIGHT. NO TONGUE DEVIATION NOTED WELL. VS ARE FOLLOWS: 152/59, 66, 97.8, 97% AT ROOM AIR, BS 89MG/DL. SUPPLEMENTAL OXYGEN GIVEN AT 2LPM VIA NASAL CANULA. CALLED CODE ON PATIENT, AND DR. SARAH NOTIFIED. THE TEAM CAME AND ASSESSED THE PATIENT. PATIENT STARTED TALKING MUCH BETTER AT THIS POINT. DR. SARAH WTIH ORDER FOR STAT HEAD CT, WITH ORDERS MADE AND CARRIED OUT. PATIENT REMAINS WITH NO SIGNS OF DISTRESS. WILL CONTINUE TO MONITOR PATIENT.
--- NOTE | 2020-11-17 18:25 | NUR ---
TO RADIOLOGY FOR HEAD CT.
--- NOTE | 2020-11-17 18:28 | NUR ---
PLATE GLASS INSTALLER HELPER NOTE PATIENT BROUGHT TO RADIOLOGY FOR HEAD CT
--- NOTE | 2020-11-17 18:45 | NUR ---
FRUIT PRESERVER NOTE PATIENT BROUGHT BACK TO ROOM, WITH CT HEAD DONE.
--- NOTE | 2020-11-17 19:15 | NUR ---
SOCIAL WORKER AIDE CLOSING NOTE PATIENT ALERT AND ORIENTED X 4 IN BED. PATIENT NOW SPEAKING NORMALLY NOW AND DOES NOT APPEAR TO HAVE ANY EVENT/ISSUE AND CLAIMS SHE IS OKAY AND WANTS TO PEE IN THE BATHROOM. PATIENT INSTRUCTED TO USE THE BEDPAN INSTEAD TO ENSURE SAFETY. PATIENT VERBALIZED UNDERSTANDING AND APPRECIATION. PATIENT ON ROOM AIR WITH NO SIGN OF DISTRESS, WITH UNLABORED BREATHING AND EVEN BREATHING. PATIENT WITH IV ACCESS ON RIGHT FA G 22 AND LEFT AC G20 BOTH PATENT AND INTACT. PATIENT ON EXTERNAL COLD ROLLER WITH SR AT 67. BED IN LOWEST POSITION AND LOCKED IN PLACE, WITH SIDERAILS UP FOR SAFETY. CALL LIGHT WITHIN REACH AT ALL TIMES. ENDORSED TO NEXT SHIFT FOR CONTINUITY OF CARE.
--- NOTE | 2020-11-17 19:30 | NUR ---
FF UP CALL TO RADIOLOGY REGARDING HEAD CT REPORT NOT AVAILABLE YET. ENDORSED TO ICU NOC CHARGE TO FF UP.
--- NOTE | 2020-11-17 19:30 | NUR ---
SCHOOL CAFETERIA COOK OPENING NOTE RECEIVED PT AWAKE IN BED. A/OX4. PT STABLE ON ROOM AIR. NO SOB OR S/S OF RESPIRATORY DISTRESS NOTED. PT IS ON EXTERNAL CYCLE ANALYST READING SR AT 67. IV ACCESS NOTED IN RFA #22 AND LAC #20, INTACT AND PATENT. NO C/O OF PAIN OR DISCOMFORT AT THIS TIME. SAFETY MEASURES MAINTAINED. BED IN LOWEST LOCKED POSITION, HOB ELEVATED, SIDE RAILS UP X2. CALL LIGHT AND TABLE WITHIN REACH. WILL CONTINUE WITH PLAN OF CARE.
[2020-11-17 20:00] VITALS: BP 125/66
[2020-11-17] MEDS: LATANOPROST EYE DROP 0.005% 2.5 ML BOTTLE OP SCH (22:15)
[2020-11-17] MEDS: FLUOXETINE HCL 20 MG CAPSULE PO SCH (22:15)
[2020-11-18] VITALS: BP 130/57
[2020-11-18] MEDS: VANCOMYCIN HCL 125 MG/2.5 ML ORAL.SUSP PO SCH ×5 (00:03→23:27)
[2020-11-18 04:00] VITALS: BP 128/74
[2020-11-18 06:23] LABS: BASOPHILS # (AUTO) 0.1 /CMM (0.0-0.2); EOSINOPHILS % (AUTO) 3.9 % (0.0-6.0); HEMATOCRIT 40 % (33-45); HEMOGLOBIN 13.3 g/dL (11.5-14.8); LYMPHOCYTES # (AUTO) 1.1 /CMM (0.8-4.8); MEAN CORPUSCULAR HGB CONC 34 g/dl (31.0-36.0); MEAN CORPUSCULAR VOLUME 94 fL (82-100); MONOCYTES # (AUTO) 0.9 /CMM (0.1-1.30); MONOCYTES % (AUTO) 12.1 % (2.0-12.0); NEUTROPHILS # (AUTO) 4.8 /CMM (1.8-8.9); PLATELET COUNT (AUTO) 205 /CMM (150-450); RED BLOOD CELL COUNT(AUTO) 4.24 MIL/uL (4.0-5.2); WHITE BLOOD COUNT (AUTO) 7.1 K/uL (4.3-11.0)
--- NOTE | 2020-11-18 06:37 | NUR ---
DISPUTE RESOLUTION ANALYST CLOSING NOTE PT IS AWAKE IN BED. A/O X4. PT STABLE ON ROOM AIR. NO SOB OR S/S OF RESPIRATORY DISTRESS NOTED. PT IS ON EXTERNAL DATA SPECIALIST READING SR 61. IV ACCESS IS INTACT, PATENT, AND FLUSHING WELL. NO C/O OF PAIN OR DISCOMFORT AT THIS TIME. ALL NEEDS HAVE BEEN MET. SAFETY PRECAUTIONS MAINTAINED AT ALL TIMES. BED IN LOWEST LOCKED POSITION, HOB ELEVATED, SIDE RAILS UP X2. CALL LIGHT AND TABLE WITHIN REACH. WILL ENDORSE TO ONCOMING NURSE FOR CHRISTA.
[2020-11-18 06:44] LABS: CALCIUM, SERUM 8.7 mg/dL (8.5-10.1); CREATININE 1.2 mg/dL (0.6-1.3); POTASSIUM 4.3 mmol/L (3.5-5.1)
--- NOTE | 2020-11-18 07:18 | NUR ---
DRAWING TRACER OPENING NOTE PATIENT ALERT AND ORIENTED X4 IN BED. PATIENT ON ROOM AIR WITH NO SIGN OF DISTRESS, WITH UNLABORED BREATHING AND EVEN BREATHING. PATIENT WITH IV ACCESS ON RIGHT FOREARM G22 AND LEFT AC G20, ON HEPLOCK. PATENT AND INTACT. PATIENT ON EXTERNAL CHEMICAL ETCHING PROCESSOR WITH NORMAL SR AT 70. BED IN LOWEST POSITION AND LOCKED IN PLACE, WITH SIDERAILS UP FOR SAFETY. CALL LIGHT WITHIN REACH AT ALL TIMES. WILL CONTINUE TO MONITOR PATIENT.
--- NOTE | 2020-11-18 08:50 | NUR ---
DRAFTER (CAD) ELECTRONIC NOTE PATIENT SEEN BY DR. PENA - GLOBAL UPSTREAM MARKETING MANAGER. WITH NO NEW ORDER AT THIS TIME.
[2020-11-18] MEDS: ASPIRIN 81 MG TAB.CHEW PO SCH (10:08)
[2020-11-18] MEDS: DOCUSATE SODIUM 100 MG CAPSULE PO SCH ×2 (10:09→17:34)
[2020-11-18] MEDS: LEVOTHYROXINE SODIUM 50 MCG TABLET PO SCH (10:09)
[2020-11-18] MEDS: ISOSORBIDE MONONITRATE (30MG) 30 MG TAB.SR.24H PO SCH (10:09)
[2020-11-18] MEDS: TIMOLOL 0.5% SOLN OPHTH 5 ML BOTTLE EACHEYE SCH ×2 (10:09→17:34)
[2020-11-18] MEDS: ACIDOPHILUS/BULGARICUS 1 EACH TAB.CHEW PO SCH ×3 (10:10→17:34)
[2020-11-18] MEDS: CLOPIDOGREL BISULFATE 75 MG TABLET PO SCH (10:10)
[2020-11-18] MEDS: PANTOPRAZOLE 40 MG TABLET.DR PO SCH (10:10)
[2020-11-18] MEDS: CARVEDILOL 6.25 MG TABLET PO SCH ×2 (10:10→17:35)
--- NOTE | 2020-11-18 13:20 | NUR ---
MS RN NOTE PATIENT SEEN BY DR. MICHAEL.
--- NOTE | 2020-11-18 14:30 | NUR ---
MS RN NOTE WITH ORDER FROM DR. PENA TO TRANSFER PATIENT FROM TELE TO MS. TELE MONITORING DISCONTINUED ORDERED.ENDORSED ACCORDINGLY.
--- NOTE | 2020-11-18 19:15 | NUR ---
MS RN CLOSING NOTE PATIENT ALERT AND ORIENTED X 4 IN BED. PATIENT ON ROOM AIR WITH NO SIGN OF DISTRESS, WITH UNLABORED BREATHING AND EVEN BREATHING. PATIENT WITH IV ACCESS ON RIGHT FA G 22 AND LEFT AC G20 BOTH PATENT AND INTACT. BED IN LOWEST POSITION AND LOCKED IN PLACE, WITH SIDERAILS UP FOR SAFETY. CALL LIGHT WITHIN REACH AT ALL TIMES. ENDORSED TO NEXT SHIFT FOR CONTINUITY OF CARE.
--- NOTE | 2020-11-18 19:25 | NUR ---
MS RN NOTE PATIENT REQUESTED TO INCREASE COLACE. DR. MICHAEL NOTIFIED. WITH ORDERS MADE AND CARRIED OUT.
--- NOTE | 2020-11-18 19:30 | NUR ---
MS RN OPENING NOTE RECEIVED PT AWAKE IN BED. A/OX4. PT STABLE ON ROOM AIR. NO SOB OR S/S OF RESPIRATORY DISTRESS NOTED. IV ACCESS NOTED IN RFA #22 AND LAC #20, INTACT AND PATENT. NO C/O OF PAIN OR DISCOMFORT AT THIS TIME. SAFETY MEASURES MAINTAINED. BED IN LOWEST LOCKED POSITION, HOB ELEVATED, SIDE RAILS UP X2. CALL LIGHT AND TABLE WITHIN REACH. WILL CONTINUE WITH PLAN OF CARE.
[2020-11-18 20:00] VITALS: BP 151/73
[2020-11-18] MEDS: FLUOXETINE HCL 20 MG CAPSULE PO SCH (21:57)
[2020-11-18] MEDS: LATANOPROST EYE DROP 0.005% 2.5 ML BOTTLE OP SCH (21:57)
[2020-11-18 22:57] LABS: BILIRUBIN,URINE NEGATIVE (NEGATIVE); COLOR,URINE YELLOW (YELLOW); LEUKOCYTE ESTERASE ,URINE NEGATIVE (NEGATIVE); NITRITE, URINE NEGATIVE (NEGATIVE); PROTEIN,URINE NEGATIVE (NEGATIVE); UGLUCOSE NEGATIVE (NEGATIVE); UROBILINOGEN,URINE 0.2 EU/dL (0.2)
[2020-11-18 23:23] LABS: BACTERIA,URINE Rare /HPF (None Seen); RBC,URINE 0-2 /HPF (0-2); SQUAMOUS EPITHELIAL CELL,UR Rare /HPF (None Seen); URINE AMORPHOUS PHOSPHATES Many /HPF (None Seen); WBC,URINE 0-2 /HPF (0-3)
[2020-11-19 00:05] LABS: CREATININE, URINE 215.3 MG/DL (30.0-125.0)
[2020-11-19] MEDS: VANCOMYCIN HCL 125 MG/2.5 ML ORAL.SUSP PO SCH ×3 (05:50→17:35)
[2020-11-19 06:37] LABS: BASOPHILS # (AUTO) 0.1 /CMM (0.0-0.2); BASOPHILS % (AUTO) 0.9 % (0.0-2.0); HEMATOCRIT 42 % (33-45); HEMOGLOBIN 14.1 g/dL (11.5-14.8); LYMPHOCYTES # (AUTO) 1.2 /CMM (0.8-4.8); LYMPHOCYTES % (AUTO) 12.6 % (20.0-44.0); MEAN CORPUSCULAR HGB CONC 33 g/dl (31.0-36.0); MEAN CORPUSCULAR VOLUME 94 fL (82-100); MONOCYTES # (AUTO) 1.2 /CMM (0.1-1.30); MONOCYTES % (AUTO) 12.6 % (2.0-12.0); NEUTROPHILS # (AUTO) 6.9 /CMM (1.8-8.9); NEUTROPHILS % (AUTO) 70.9 % (43.0-81.0); PLATELET COUNT (AUTO) 211 /CMM (150-450); RED BLOOD CELL COUNT(AUTO) 4.53 MIL/uL (4.0-5.2); WHITE BLOOD COUNT (AUTO) 9.7 K/uL (4.3-11.0)
[2020-11-19 07:03] LABS: CALCIUM, SERUM 8.9 mg/dL (8.5-10.1); CREATININE 1.3 mg/dL (0.6-1.3); POTASSIUM 4.3 mmol/L (3.5-5.1)
[2020-11-19] MEDS: LEVOTHYROXINE SODIUM 50 MCG TABLET PO SCH ×2 (07:30→14:02)
[2020-11-19] MEDS: PANTOPRAZOLE 40 MG TABLET.DR PO SCH (07:30)
--- NOTE | 2020-11-19 07:35 | NUR ---
MS RN CLOSING NOTE PT IS IN BED WITH EYES CLOSED, EASILY AROUSED. A/OX4. PT STABLE ON ROOM AIR. NO SOB OR S/S OF RESPIRATORY DISTRESS NOTED. IV ACCESS IS INTACT, PATENT, AND FLUSHING WELL. NO C/O OF PAIN OR DISCOMFORT AT THIS TIME. ALL NEEDS HAVE BEEN MET. SAFETY PRECAUTIONS MAINTAINED AT ALL TIMES. BED IN LOWEST LOCKED POSITION, HOB ELEVATED, SIDE RAILS UP X2. CALL LIGHT AND TABLE WITHIN REACH. WILL ENDORSE TO ONCOMING NURSE FOR CHRISTA.
[2020-11-19 08:00] VITALS: BP 130/54
[2020-11-19] MEDS ORDERED: REGADENOSON 0.4 MG/5 ML DISP.SYRIN IVP ONE ×2 (08:00→08:30)
--- NOTE | 2020-11-19 08:00 | NUR ---
RN MEDICINE NOTE LEXISCAN IVP TO BE GIVEN OUTPT FOR MYOCARDIAL STRESS TEST PROCEDURE.
--- NOTE | 2020-11-19 08:00 | NUR ---
RN OPENING NOTE PT AWAKE IN BED. A/O X4 AND SAMMARINESE SPEAKING. NO COMPLAINT OF PAIN OR NAUSEA. CURRENTLY ON RA WITH NO SOB OR RESPIRATORY DISTRESS PRESENT. NO EDEMA PRESENT. SELF AMBULATORY WITH BATH ROOM PRIVILEGES. NO SKIN ISSUES IDENTIFIED. IV PRESENT AND FLUSHES WELL. LABS REVIEWED. SAFETY MEASURES IN PLACE. SIDE RAILS RAISED. BED LOWERED. CALL LIGHT WITHIN REACH. WILL CONTINUE TO MONITOR.
[2020-11-19] MEDS: ASPIRIN 81 MG TAB.CHEW PO SCH ×2 (08:16→14:02)
[2020-11-19] MEDS: DOCUSATE SODIUM 100 MG CAPSULE PO SCH ×3 (08:16→16:07)
[2020-11-19] MEDS: CLOPIDOGREL BISULFATE 75 MG TABLET PO SCH (08:17)
[2020-11-19] MEDS: ACIDOPHILUS/BULGARICUS 1 EACH TAB.CHEW PO SCH ×3 (08:17→16:07)
[2020-11-19] MEDS: TIMOLOL 0.5% SOLN OPHTH 5 ML BOTTLE EACHEYE SCH ×2 (08:21→16:08)
[2020-11-19] MEDS: ISOSORBIDE MONONITRATE (30MG) 30 MG TAB.SR.24H PO SCH ×2 (08:29→14:02)
[2020-11-19] MEDS: CARVEDILOL 6.25 MG TABLET PO SCH ×3 (08:29→16:07)
[2020-11-19 16:00] VITALS: BP 132/66
--- NOTE | 2020-11-19 18:05 | NUR ---
RN CLOSING NOTE PT AWAKE IN BED. A/O X4 AND WELSH SPEAKING. NO COMPLAINT OF PAIN OR NAUSEA. CURRENTLY ON RA WITH NO SOB OR RESPIRATORY DISTRESS PRESENT. NO EDEMA PRESENT. SELF AMBULATORY WITH BATH ROOM PRIVILEGES. NO SKIN ISSUES IDENTIFIED. IV PRESENT AND FLUSHES WELL. ROUTINE MEDS GIVEN. SAFETY MEASURES IN PLACE. SIDE RAILS RAISED. BED LOWERED. CALL LIGHT WITHIN REACH. REPORT TO BE GIVEN TO NIGHT NURSE FOR CHRISTA.
[2020-11-19 20:00] VITALS: BP 99/55
--- NOTE | 2020-11-19 20:00 | NUR ---
MS RN OPENING NOTES: RECEIVED PATIENT AWAKE IN BED , BED IN LOW POSTION, CALL LIGHTS WITHIN REACH, NO COMPLAIN OF PAIN AND DISCOMFORT AT THIS TIME, PATIENT IS A/OX4., AMBULATORY, ON CARDIAC DIET, WITH R FA IV LINE G#22 INFUSING WELL, PATIENT KEEP CLEAN AND DRY, ALL NEED MET, WILL CONTINUE TO MONITOR.
[2020-11-19] MEDS: FLUOXETINE HCL 20 MG CAPSULE PO SCH (22:20)
[2020-11-19] MEDS: LATANOPROST EYE DROP 0.005% 2.5 ML BOTTLE OP SCH (22:20)
[2020-11-20] MEDS: VANCOMYCIN HCL 125 MG/2.5 ML ORAL.SUSP PO SCH ×3 (00:15→12:04)
[2020-11-20 06:30] LABS: BASOPHILS # (AUTO) 0.1 /CMM (0.0-0.2); BASOPHILS % (AUTO) 0.9 % (0.0-2.0); EOSINOPHILS % (AUTO) 3.7 % (0.0-6.0); HEMATOCRIT 41 % (33-45); HEMOGLOBIN 13.3 g/dL (11.5-14.8); LYMPHOCYTES # (AUTO) 1.2 /CMM (0.8-4.8); LYMPHOCYTES % (AUTO) 13.6 % (20.0-44.0); MEAN CORPUSCULAR HGB CONC 33 g/dl (31.0-36.0); MEAN CORPUSCULAR VOLUME 94 fL (82-100); MONOCYTES # (AUTO) 1.1 /CMM (0.1-1.30); MONOCYTES % (AUTO) 12.4 % (2.0-12.0); NEUTROPHILS # (AUTO) 6.4 /CMM (1.8-8.9); NEUTROPHILS % (AUTO) 69.4 % (43.0-81.0); PLATELET COUNT (AUTO) 211 /CMM (150-450); RED BLOOD CELL COUNT(AUTO) 4.34 MIL/uL (4.0-5.2); WHITE BLOOD COUNT (AUTO) 9.2 K/uL (4.3-11.0)
[2020-11-20 07:11] LABS: CALCIUM, SERUM 8.3 mg/dL (8.5-10.1); CREATININE 1.3 mg/dL (0.6-1.3); POTASSIUM 4.5 mmol/L (3.5-5.1)
--- NOTE | 2020-11-20 07:30 | NUR ---
MS RN CLOSING NOTES: PATIENT SLEEP IN BED COMFORTABLY, BED IN LOW POSITION, CALL LIGHTS WITHIN REACH, NO COMPLAIN OF PAIN AND DISCOMFORT AT THIS TIME, A/OX4 ABLE TO MAKE NEEDS KNOWN, ALL MEDS GIVEN, KEPT CLEAN AND DRY, SHAMIR CONTINUE TO MONITOR.
[2020-11-20] MEDS: LEVOTHYROXINE SODIUM 50 MCG TABLET PO SCH (07:34)
[2020-11-20] MEDS: PANTOPRAZOLE 40 MG TABLET.DR PO SCH (07:34)
[2020-11-20 08:00] VITALS: BP 136/95
--- NOTE | 2020-11-20 08:00 | NUR ---
RN OPENING NOTE PT AWAKE IN BED. A/O X4 AND SURINAMESE SPEAKING. NO COMPLAINT OF PAIN OR NAUSEA. CURRENTLY ON RA WITH NO SOB OR RESPIRATORY DISTRESS PRESENT. NO EDEMA PRESENT. SELF AMBULATORY WITH BATH ROOM PRIVILEGES. NO SKIN ISSUES IDENTIFIED. IV PRESENT ON LFA 22G AND FLUSHES WELL. LABS REVIEWED. SAFETY MEASURES IN PLACE. SIDE RAILS RAISED. BED LOWERED. CALL LIGHT WITHIN REACH. WILL CONTINUE TO MONITOR.
[2020-11-20] MEDS: CLOPIDOGREL BISULFATE 75 MG TABLET PO SCH (08:29)
[2020-11-20] MEDS: CARVEDILOL 6.25 MG TABLET PO SCH (08:29)
[2020-11-20] MEDS: ISOSORBIDE MONONITRATE (30MG) 30 MG TAB.SR.24H PO SCH (08:29)
[2020-11-20] MEDS: ASPIRIN 81 MG TAB.CHEW PO SCH (08:30)
[2020-11-20] MEDS: ACIDOPHILUS/BULGARICUS 1 EACH TAB.CHEW PO SCH ×2 (08:30→12:04)
[2020-11-20] MEDS: DOCUSATE SODIUM 100 MG CAPSULE PO SCH (08:30)
[2020-11-20] MEDS: TIMOLOL 0.5% SOLN OPHTH 5 ML BOTTLE EACHEYE SCH (08:31)
[2020-11-20] MEDS ORDERED: ASPI-1169 PO (10:57)
[2020-11-20] MEDS ORDERED: VANC125C11 PO (13:09)
[2020-11-20] MEDS: NITROGLYCERIN 0.4 MG/TAB BOTTLE SL PRN ×2 (14:40→15:25)
[2020-11-20] MEDS: HYDROCODONE/APAP 5/325MG TABLET PO PRN (14:41)
[2020-11-20 15:25] VITALS: BP 180/100
--- NOTE | 2020-11-20 16:04 | NUR ---
CARPET TILE LAYER NOTE PT DISCHARGED HOME. EXITCARE EDUCATION UTILIZED AND EDUCATION GIVEN TO PT. IV LINES REMOVED. ID BANDS REMOVED. BELONGINGS CHECKED AND GIVEN TO PT. SKIN IS INTACT. PRESCRIPTIONS CHECKED AND EDUCATION GIVEN TO PT. F/U WITH DR PENA WITHIN 1 WEEK. REPORT GIVEN TO EMT. PT TRANSPORTED VIA AMBULANCE.
== END 2020-11-20 15:45 | disposition home health service (06) | DRG 371 ==
LOC: ER 18:17 → TELE 20:04 → MED 11-13 12:02 → ICU 11-15 02:28 → TELE 11-16 10:32 → MED 11-18 12:00
PROVIDERS: ADMIT Internal Medicine; ATTEND Internal Medicine
DX: A04.72 Enterocolitis due to Clostridium difficile, not specified as recurrent (principal); I63.9 Cerebral infarction, unspecified; G93.41 Metabolic encephalopathy; I50.33 Acute on chronic diastolic (congestive) heart failure; I13.0 Hypertensive heart and chronic kidney disease with heart failure and stage 1 through stage 4 chronic kidney disease, or unspecified chronic kidney disease; I24.9 Acute ischemic heart disease, unspecified; D68.59 Other primary thrombophilia; N17.9 Acute kidney failure, unspecified; J98.11 Atelectasis; Z74.09 Other reduced mobility; E11.22 Type 2 diabetes mellitus with diabetic chronic kidney disease; Z20.822 Contact with and (suspected) exposure to COVID-19; N18.32 Chronic kidney disease, stage 3b; E03.9 Hypothyroidism, unspecified; I16.0 Hypertensive urgency; E66.9 Obesity, unspecified; E78.5 Hyperlipidemia, unspecified; E83.42 Hypomagnesemia; E87.6 Hypokalemia; F32.9 Major depressive disorder, single episode, unspecified; F41.9 Anxiety disorder, unspecified; H40.9 Unspecified glaucoma; I25.10 Atherosclerotic heart disease of native coronary artery without angina pectoris; M79.7 Fibromyalgia; I25.2 Old myocardial infarction; I70.0 Atherosclerosis of aorta; Z95.5 Presence of coronary angioplasty implant and graft; Z86.73 Personal history of transient ischemic attack (TIA), and cerebral infarction without residual deficits; Z90.710 Acquired absence of both cervix and uterus; Z98.890 Other specified postprocedural states; Z79.899 Other long term (current) drug therapy; R48.8 Other symbolic dysfunctions; K29.70 Gastritis, unspecified, without bleeding; K22.70 Barrett's esophagus without dysplasia; Z88.5 Allergy status to narcotic agent; Z88.8 Allergy status to other drugs, medicaments and biological substances; Z79.02 Long term (current) use of antithrombotics/antiplatelets; G89.29 Other chronic pain; T50.8X5A Adverse effect of diagnostic agents, initial encounter; Y92.009 Unspecified place in unspecified non-institutional (private) residence as the place of occurrence of the external cause; F29 Unspecified psychosis not due to a substance or known physiological condition; Z68.39 Body mass index [BMI] 39.0-39.9, adult; F41.0 Panic disorder [episodic paroxysmal anxiety]
CPT/HCPCS: 36415; 70450-TC; 70496-TC; 71045-TC; 75574; 80048-TC; 80053-TC; 80061-TC; 80076-TC; 81001; 82570-TC; 82962-TC; 83735-TC; 83880; 84100-TC; 84300-TC; 84443-TC; 84484-TC; 85025-TC; 85730-TC; 86850-TC; 87081-TC; 92526; 92611-TC; 93307-TC; 93880-TC; 97112-TC; 97116-TC; 97530-TC; A4217; A6253; A6403; A9502; C9803; G0378; J1940; J2270; J2785; J3475; J3490; J7030; J7040; J7050; Q9967

== ENCOUNTER 2021-01-12 20:20 | Inpatient (IN) | payer MEDICARE ==
[~2021-01-12] VITALS: Ht 154.9 cm; Wt 88.5 kg
[~2021-01-12 20:20] MED LIST changes: -ACET325T53 PO; +ASPI-1169 PO; +ATOR40TA PO; +BIMA2.5D5 EACHEYE; -DOCU-141 PO; -DOCU-270 PO; -GABA100C PO; +ISOS30TA86 PO; -LACT1CAP63 PO; -LEVO50TA PO; +LEVO50TA8 PO; +NITR0.4T48 SL; -PANT40TA49 PO; -SIMV-46 PO; -TIMO10DR19 EACHEYE; +TIMO5DRO35 EACHEYE; +VANC125C11 PO
[2021-01-12] MEDS ORDERED: ONDANSETRON HCL/PF 4 MG/2 ML VIAL IVP ONE (20:30)
[2021-01-12] MEDS ORDERED: ONDANSETRON HCL/PF 4 MG/2 ML VIAL ONE (20:47)
[2021-01-12 20:48] LABS: BASOPHILS % (AUTO) 0.4 % (0.0-2.0); EOSINOPHILS % (AUTO) 1.7 % (0.0-6.0); HEMATOCRIT 43 % (33-45); HEMOGLOBIN 14.1 g/dL (11.5-14.8); LYMPHOCYTES # (AUTO) 0.8 K/uL (0.8-4.8); LYMPHOCYTES % (AUTO) 7.2 % (20.0-44.0); MEAN CORPUSCULAR HGB CONC 33 g/dl (31.0-36.0); MEAN CORPUSCULAR VOLUME 93 fL (82-100); MONOCYTES # (AUTO) 1.2 K/uL (0.1-1.30); MONOCYTES % (AUTO) 10.4 % (2.0-12.0); NEUTROPHILS # (AUTO) 9.3 K/uL (1.8-8.9); NEUTROPHILS % (AUTO) 80.3 % (43.0-81.0); PLATELET COUNT (AUTO) 224 K/uL (150-450); RED BLOOD CELL COUNT(AUTO) 4.59 MIL/uL (4.0-5.2); WHITE BLOOD COUNT (AUTO) 11.6 K/uL (4.3-11.0)
[2021-01-12 21:04] LABS: ALANINE AMINOTRANSFERASE 19 U/L (12-78); ALBUMIN 3.8 g/dL (3.4-5.0); ALKALINE PHOSPHATASE 113 U/L (46-116); ASPARTATE AMINOTRANSFERASE 17 U/L (15-37); BILIRUBIN,DIRECT 0.2 mg/dL (0.0-0.2); BILIRUBIN,TOTAL 0.7 mg/dL (0.2-1.0); CALCIUM, SERUM 9.1 mg/dL (8.5-10.1); CARBON DIOXIDE 26 mmol/L (21-32); CHLORIDE 106 mmol/L (98-107); CREATININE 1.3 mg/dL (0.6-1.3); GLUCOSE 100 mg/dL (74-106); LIPASE 184 U/L (73-393); POTASSIUM 4.3 mmol/L (3.5-5.1); SODIUM SERUM 141 mmol/L (136-145); TOTAL PROTEIN, SERUM 7.2 g/dL (6.4-8.2); UREA NITROGEN, BLOOD 25 mg/dL (7-18)
[2021-01-12] MEDS ORDERED: HALOPERIDOL LACTATE INJ 5 MG/ML VIAL ONE (21:45)
[2021-01-12] MEDS ORDERED: METOCLOPRAMIDE HCL 10 MG/2 ML VIAL ONE (21:45)
[2021-01-12] MEDS ORDERED: METOCLOPRAMIDE HCL 10 MG/2 ML VIAL IV ONE (22:00)
[2021-01-12] MEDS ORDERED: HALOPERIDOL LACTATE INJ 5 MG/ML VIAL IM ONE (22:00)
[2021-01-13] MEDS ORDERED: NITROGLYCERIN 0.4 MG/TAB BOTTLE SL PRN
[2021-01-13] MEDS ORDERED: ONDANSETRON HCL/PF 4 MG/2 ML VIAL IVP PRN (00:30)
[2021-01-13] MEDS ORDERED: hydrALAZINE HCL 25 MG TABLET PO PRN (00:30)
[2021-01-13] MEDS ORDERED: ACETAMINOPHEN 325 MG TABLET PO PRN (00:30)
[2021-01-13] MEDS ORDERED: Z GUARD REMEDY 2 OZ OINT TP PRN (00:30)
[2021-01-13 05:54] LABS: BASOPHILS % (AUTO) 0.5 % (0.0-2.0); HEMATOCRIT 36 % (33-45); HEMOGLOBIN 12.2 g/dL (11.5-14.8); LYMPHOCYTES # (AUTO) 0.9 K/uL (0.8-4.8); LYMPHOCYTES % (AUTO) 10.7 % (20.0-44.0); MEAN CORPUSCULAR HGB CONC 34 g/dl (31.0-36.0); MEAN CORPUSCULAR VOLUME 94 fL (82-100); MONOCYTES % (AUTO) 12.5 % (2.0-12.0); NEUTROPHILS # (AUTO) 6.1 K/uL (1.8-8.9); NEUTROPHILS % (AUTO) 73.3 % (43.0-81.0); PLATELET COUNT (AUTO) 173 K/uL (150-450); RED BLOOD CELL COUNT(AUTO) 3.87 MIL/uL (4.0-5.2); WHITE BLOOD COUNT (AUTO) 8.3 K/uL (4.3-11.0)
[2021-01-13 06:03] LABS: CHOLESTEROL 100 mg/dL (<200); HDL CHOLESTEROL 40 mg/dL (40-60); LDL 43 mg/dL (0-99); THYROID STIMULATING HORMONE 3.244 uIU/mL (0.358-3.74); TRIGLYCERIDES 88 mg/dL (30-150)
[2021-01-13 06:08] LABS: ALANINE AMINOTRANSFERASE 16 U/L (12-78); ALBUMIN 2.9 g/dL (3.4-5.0); ALKALINE PHOSPHATASE 83 U/L (46-116); ASPARTATE AMINOTRANSFERASE 15 U/L (15-37); BILIRUBIN,TOTAL 0.6 mg/dL (0.2-1.0); CALCIUM, SERUM 8.2 mg/dL (8.5-10.1); CARBON DIOXIDE 26 mmol/L (21-32); CHLORIDE 109 mmol/L (98-107); CREATININE 1.2 mg/dL (0.6-1.3); GLUCOSE 97 mg/dL (74-106); MAGNESIUM 2.1 mg/dL (1.8-2.4); PHOSPHORUS 3.5 mg/dL (2.5-4.9); POTASSIUM 4.1 mmol/L (3.5-5.1); SODIUM SERUM 144 mmol/L (136-145); TOTAL PROTEIN, SERUM 5.6 g/dL (6.4-8.2); UREA NITROGEN, BLOOD 24 mg/dL (7-18)
[2021-01-13] MEDS ORDERED: PANTOPRAZOLE 40 MG TABLET.DR PO SCH (07:30)
[2021-01-13] MEDS ORDERED: PANTOPRAZOLE 40 MG TABLET.DR PO ONE (07:42)
[2021-01-13] MEDS ORDERED: LEVOTHYROXINE SODIUM 50 MCG TABLET ONE (07:42)
[2021-01-13] MEDS: PANTOPRAZOLE 40 MG TABLET.DR PO SCH ×2 (07:45→16:41)
[2021-01-13] MEDS: LEVOTHYROXINE SODIUM 50 MCG TABLET PO SCH (07:45)
[2021-01-13] MEDS ORDERED: CLOPIDOGREL BISULFATE 75 MG TABLET ONE (08:16)
[2021-01-13] MEDS ORDERED: DOCUSATE SODIUM 100 MG CAPSULE PO ONE (08:16)
[2021-01-13] MEDS ORDERED: CARVEDILOL 6.25 MG TABLET ONE (08:16)
[2021-01-13] MEDS ORDERED: ISOSORBIDE MONONITRATE (30MG) 30 MG TAB.SR.24H PO ONE (08:17)
[2021-01-13] MEDS ORDERED: ASPIRIN EC 325 MG TABLET.DR PO ONE (08:17)
[2021-01-13] MEDS: CLOPIDOGREL BISULFATE 75 MG TABLET PO SCH (08:47)
[2021-01-13] MEDS: CARVEDILOL 6.25 MG TABLET PO SCH ×2 (08:47→16:42)
[2021-01-13] MEDS: ASPIRIN EC 325 MG TABLET.DR PO SCH (08:47)
[2021-01-13] MEDS: ISOSORBIDE MONONITRATE (30MG) 30 MG TAB.SR.24H PO SCH (08:47)
[2021-01-13] MEDS: DOCUSATE SODIUM 100 MG CAPSULE PO SCH ×2 (08:47→16:41)
[2021-01-13] MEDS: TIMOLOL 0.5% SOLN OPHTH 5 ML BOTTLE EACHEYE SCH ×2 (08:47→17:09)
[2021-01-13] MEDS ORDERED: ASPIRIN 81 MG TAB.CHEW PO SCH (09:00)
[2021-01-13 16:00] VITALS: BP 139/63
[2021-01-13 20:00] VITALS: BP_SYST 120; BP_SYST 126; BP_DIAS 59
[2021-01-13] MEDS ORDERED: LATANOPROST EYE DROP 0.005% 2.5 ML BOTTLE EACHEYE SCH (22:00)
[2021-01-13] MEDS ORDERED: ATORVASTATIN 40 MG TABLET PO SCH (22:00)
[2021-01-13] MEDS ORDERED: FLUOXETINE HCL 20 MG CAPSULE PO SCH (22:00)
[2021-01-13] MEDS ORDERED: ATORVASTATIN 10 MG TABLET PO SCH (22:00)
[2021-01-13] MEDS ORDERED: POLYETHYLENE GLYCOL 3350 17 GM POWD.PACK PO SCH (23:30)
[2021-01-14] VITALS: BP 133/73
[2021-01-14] MEDS ORDERED: NA PHOS,M-B/NA PHOS,DI-BA 1 EA ENEMA RC PRN (03:00)
[2021-01-14 04:00] VITALS: BP 144/64
[2021-01-14 07:22] LABS: BASOPHILS % (AUTO) 0.4 % (0.0-2.0); EOSINOPHILS % (AUTO) 2.3 % (0.0-6.0); HEMATOCRIT 40 % (33-45); HEMOGLOBIN 13.3 g/dL (11.5-14.8); LYMPHOCYTES # (AUTO) 0.9 K/uL (0.8-4.8); LYMPHOCYTES % (AUTO) 9.1 % (20.0-44.0); MEAN CORPUSCULAR HGB CONC 34 g/dl (31.0-36.0); MEAN CORPUSCULAR VOLUME 93 fL (82-100); MONOCYTES # (AUTO) 1.1 K/uL (0.1-1.30); NEUTROPHILS # (AUTO) 7.8 K/uL (1.8-8.9); NEUTROPHILS % (AUTO) 77.2 % (43.0-81.0); PLATELET COUNT (AUTO) 199 K/uL (150-450); RED BLOOD CELL COUNT(AUTO) 4.25 MIL/uL (4.0-5.2)
[2021-01-14 07:48] LABS: CALCIUM, SERUM 8.6 mg/dL (8.5-10.1); CREATININE 1.3 mg/dL (0.6-1.3); MAGNESIUM 2.1 mg/dL (1.8-2.4); POTASSIUM 4.5 mmol/L (3.5-5.1)
[2021-01-14 08:26] VITALS: BP 130/80
[2021-01-14 08:57] VITALS: BP 138/80
[2021-01-14] MEDS: CARVEDILOL 6.25 MG TABLET PO SCH (08:57)
[2021-01-14] MEDS: CLOPIDOGREL BISULFATE 75 MG TABLET PO SCH (08:57)
[2021-01-14] MEDS: ISOSORBIDE MONONITRATE (30MG) 30 MG TAB.SR.24H PO SCH (08:57)
[2021-01-14] MEDS: DOCUSATE SODIUM 100 MG CAPSULE PO SCH (08:58)
[2021-01-14] MEDS: PANTOPRAZOLE 40 MG TABLET.DR PO SCH (08:58)
[2021-01-14] MEDS ORDERED: ASPIRIN EC 81 MG TABLET.DR PO SCH (09:00)
[2021-01-14] MEDS ORDERED: ASPIRIN EC 81 MG TABLET.DR PO ONE (09:02)
[2021-01-14] MEDS: TIMOLOL 0.5% SOLN OPHTH 5 ML BOTTLE EACHEYE SCH (09:03)
[2021-01-14] MEDS: LEVOTHYROXINE SODIUM 50 MCG TABLET PO SCH (09:03)
[2021-01-14] MEDS: ASPIRIN EC 325 MG TABLET.DR PO SCH (09:04)
== END 2021-01-14 12:35 | disposition home health service (06) | DRG 391 ==
LOC: ER 20:21 → TRANSITION 01-13 02:04 → TELE 01-13 15:51
PROVIDERS: ADMIT Internal Medicine; ATTEND Nurse Practitioner Family
DX: K29.70 Gastritis, unspecified, without bleeding (principal); N17.0 Acute kidney failure with tubular necrosis; D68.59 Other primary thrombophilia; I13.0 Hypertensive heart and chronic kidney disease with heart failure and stage 1 through stage 4 chronic kidney disease, or unspecified chronic kidney disease; I50.32 Chronic diastolic (congestive) heart failure; K21.9 Gastro-esophageal reflux disease without esophagitis; D64.9 Anemia, unspecified; E11.22 Type 2 diabetes mellitus with diabetic chronic kidney disease; I25.10 Atherosclerotic heart disease of native coronary artery without angina pectoris; N18.32 Chronic kidney disease, stage 3b; R48.8 Other symbolic dysfunctions; Z87.19 Personal history of other diseases of the digestive system; E03.9 Hypothyroidism, unspecified; E78.5 Hyperlipidemia, unspecified; Z88.5 Allergy status to narcotic agent; Z91.048 Other nonmedicinal substance allergy status; Z79.82 Long term (current) use of aspirin; Z79.02 Long term (current) use of antithrombotics/antiplatelets; Z79.899 Other long term (current) drug therapy; I08.0 Rheumatic disorders of both mitral and aortic valves; E83.42 Hypomagnesemia; E87.6 Hypokalemia; H40.9 Unspecified glaucoma; F32.9 Major depressive disorder, single episode, unspecified; M79.7 Fibromyalgia; I25.2 Old myocardial infarction; E66.9 Obesity, unspecified; Z86.73 Personal history of transient ischemic attack (TIA), and cerebral infarction without residual deficits; Z68.35 Body mass index [BMI] 35.0-35.9, adult; Z90.710 Acquired absence of both cervix and uterus; Z95.5 Presence of coronary angioplasty implant and graft; Z74.09 Other reduced mobility; G89.29 Other chronic pain; Z20.822 Contact with and (suspected) exposure to COVID-19
CPT/HCPCS: 36415; 70450-TC; 71045-TC; 80048-TC; 80053-TC; 80061-TC; 80076-TC; 83690-TC; 83735-TC; 83880; 84100-TC; 84443-TC; 84484-TC; 85025-TC; 87081-TC; 93970-TC; 97116-TC; 97530-TC; G0378; J1630; J2405; J2765

== ENCOUNTER 2021-12-26 17:07 | Inpatient (IN) | payer MEDICARE ==
[~2021-12-26] VITALS: Ht 152.4 cm; Wt 97.5 kg
--- NOTE | 2021-12-26 17:20 | NUR ---
Saline lock established, blood drawn and sent to lab
--- NOTE | 2021-12-26 17:22 | NUR ---
To ER bed 9, from home c/o headache, L sided chest discomfort that started at 1400. bg 130 seating captain. aaox3, breathing even and non labored, connected to monitor, awaiting md max
[2021-12-26 17:43] LABS: BASOPHILS # (AUTO) 0.1 K/uL (0.0-0.2); BASOPHILS % (AUTO) 0.7 % (0.0-2.0); EOSINOPHILS % (AUTO) 3.7 % (0.0-6.0); HEMATOCRIT 35 % (33-45); HEMOGLOBIN 11.8 g/dL (11.5-14.8); LYMPHOCYTES # (AUTO) 1.1 K/uL (0.8-4.8); LYMPHOCYTES % (AUTO) 13.8 % (20.0-44.0); MEAN CORPUSCULAR HGB CONC 34 g/dl (31.0-36.0); MEAN CORPUSCULAR VOLUME 91 fL (82-100); MONOCYTES # (AUTO) 1.1 K/uL (0.1-1.30); MONOCYTES % (AUTO) 14.7 % (2.0-12.0); NEUTROPHILS # (AUTO) 5.1 K/uL (1.8-8.9); NEUTROPHILS % (AUTO) 67.1 % (43.0-81.0); PLATELET COUNT (AUTO) 200 K/uL (150-450); RED BLOOD CELL COUNT(AUTO) 3.85 MIL/uL (4.0-5.2); WHITE BLOOD COUNT (AUTO) 7.7 K/uL (4.3-11.0)
--- NOTE | 2021-12-26 17:58 | NUR ---
COVID SWAB DONE AND SENT TO LAB
[2021-12-26 18:08] LABS: CALCIUM, SERUM 8.2 mg/dL (8.5-10.1); CARBON DIOXIDE 29 mmol/L (21-32); CHLORIDE 107 mmol/L (98-107); CREATININE 1.6 mg/dL (0.6-1.3); GLUCOSE 104 mg/dL (74-106); POTASSIUM 4.6 mmol/L (3.5-5.1); SODIUM SERUM 141 mmol/L (136-145); UREA NITROGEN, BLOOD 30 mg/dL (7-18)
[2021-12-26 18:13] LABS: ALANINE AMINOTRANSFERASE 19 U/L (12-78); ALBUMIN 3.2 g/dL (3.4-5.0); ALKALINE PHOSPHATASE 77 U/L (46-116); ASPARTATE AMINOTRANSFERASE 18 U/L (15-37); BILIRUBIN,DIRECT 0.1 mg/dL (0.0-0.2); BILIRUBIN,TOTAL 0.7 mg/dL (0.2-1.0); TOTAL PROTEIN, SERUM 6.2 g/dL (6.4-8.2)
--- NOTE | 2021-12-26 19:02 | NUR ---
MOVE SHEET SUBMITTED.
[2021-12-26] MEDS ORDERED: ASPIRIN 325 MG TABLET PO ONE (19:30)
[2021-12-26] MEDS ORDERED: NITROGLYCERIN PACKET 1 GM PACKET TD ONE (19:30)
[2021-12-26] MEDS ORDERED: NITROGLYCERIN PACKET 1 GM PACKET ONE (19:51)
[2021-12-26] MEDS ORDERED: ASPIRIN 325 MG TABLET ONE (19:51)
--- NOTE | 2021-12-26 21:18 | NUR ---
REPORT GIVEN JOSE JUAN Julian RN FOR CHRISTA
[2021-12-26] MEDS ORDERED: ZOLPIDEM TARTRATE 5 MG TABLET PO PRN (21:30)
[2021-12-26] MEDS ORDERED: ACETAMINOPHEN 325 MG TABLET PO PRN (21:30)
[2021-12-26] MEDS ORDERED: HYDROCODONE/APAP 10/325MG TABLET PO PRN (21:30)
[2021-12-26] MEDS ORDERED: MAGNESIUM HYDROXIDE 30 ML UDC PO PRN (21:30)
[2021-12-26] MEDS ORDERED: ONDANSETRON HCL/PF 4 MG/2 ML VIAL IVP PRN (21:30)
[2021-12-26] MEDS ORDERED: Z GUARD REMEDY 4 OZ OINT TP PRN (21:30)
[2021-12-26] MEDS ORDERED: MAG HYDROX/AL HYDROX/SIMETH 30 ML UDC PO PRN (21:30)
[2021-12-26] MEDS: BIMATOPROST 2.5 ML DROPS OP SCH (22:00)
--- NOTE | 2021-12-26 22:09 | NUR ---
PT TRANSFERRED TO 3W VIA ACLS PROTOCOL. VSS. ALL BELONGINGS WITH PT.
[2021-12-26 22:15] VITALS: BP 140/52
--- NOTE | 2021-12-26 22:30 | NUR ---
TELE/RN ADMITTING NOTE RECEIVED REPORT FROM SENIOR QUALITY ANALYST MICHAEL. PATIENT ARRIVED TO UNIT VIA GURNEY AND 2 STAFF MEMBERS. PATIENT IS BEING ADMITTED WITH DX OF CHEST PAIN AND HIGH RISK ACS. PATIENT IS ALERT AND ORIENTED X 4. ABLE TO MAKE NEEDS KNOWN. DENIES PAIN AT THIS TIME. ABLE TO AMBULATE FROM GURNEY TO BED WITH STAND BY ASSIST. CONTINUES ON ROOM AIR WITH NO S/SX OF RESPIRATORY DISTRESS NOTED. IV ACCESS TO LEFT AC #20G INTACT, PATENT AND SALINE LOCKED. SKIN ASSESSMENT PERFORMED ON ADMISSION WITH NO SKIN ISSUES NOTED. CONNECTED TO TELE MONITOR WITH CURRENT READING SR. PATIENT STATES SHE IS NOT VACCINATED AGAINST COVID-19. SHE DID RECEIVE HER FLU AND PNA VACCINE. PATIENT ORIENTED TO ROOM, CALL LIGHT AND UNIT. PROVIDED SNACK. CALL LIGHT WITHIN REACH. ASPIRATION, FALL AND SAFETY PRECAUTIONS MAINTAINED. ALL NEEDS ATTENDED TO AT THIS TIME.
[2021-12-26] MEDS ORDERED: HYDR12.55 PO (22:47)
[2021-12-26] MEDS: ATORVASTATIN 40 MG TABLET PO SCH (22:50)
[2021-12-26] MEDS: FLUOXETINE HCL 20 MG CAPSULE PO SCH (22:50)
[2021-12-27] VITALS: BP 140/52
--- NOTE | 2021-12-27 01:58 | NUR ---
TELE/RN NOTE PATIENTS DAUGHTER PATRICK CALLED FOR UPDATE. DAUGHTER PATRICK BURK
[2021-12-27 03:29] LABS: BASOPHILS # (AUTO) 0.1 K/uL (0.0-0.2); BASOPHILS % (AUTO) 0.8 % (0.0-2.0); EOSINOPHILS % (AUTO) 4.2 % (0.0-6.0); HEMATOCRIT 34 % (33-45); HEMOGLOBIN 11.4 g/dL (11.5-14.8); LYMPHOCYTES # (AUTO) 1.1 K/uL (0.8-4.8); LYMPHOCYTES % (AUTO) 16.1 % (20.0-44.0); MEAN CORPUSCULAR HGB CONC 33 g/dl (31.0-36.0); MEAN CORPUSCULAR VOLUME 91 fL (82-100); MONOCYTES # (AUTO) 1.2 K/uL (0.1-1.30); MONOCYTES % (AUTO) 17.3 % (2.0-12.0); NEUTROPHILS # (AUTO) 4.2 K/uL (1.8-8.9); NEUTROPHILS % (AUTO) 61.6 % (43.0-81.0); PLATELET COUNT (AUTO) 182 K/uL (150-450); RED BLOOD CELL COUNT(AUTO) 3.74 MIL/uL (4.0-5.2); WHITE BLOOD COUNT (AUTO) 6.8 K/uL (4.3-11.0)
[2021-12-27 04:01] LABS: CALCIUM, SERUM 8.5 mg/dL (8.5-10.1); CARBON DIOXIDE 31 mmol/L (21-32); CHLORIDE 107 mmol/L (98-107); CHOLESTEROL 101 mg/dL (<200); CREATININE 1.6 mg/dL (0.6-1.3); GLUCOSE 109 mg/dL (74-106); HDL CHOLESTEROL 40 mg/dL (40-60); LDL 48 mg/dL (0-99); MAGNESIUM 2.2 mg/dL (1.8-2.4); PHOSPHORUS 4.1 mg/dL (2.5-4.9); POTASSIUM 4.6 mmol/L (3.5-5.1); SODIUM SERUM 140 mmol/L (136-145); THYROID STIMULATING HORMONE 1.451 uIU/mL (0.358-3.74); TRIGLYCERIDES 116 mg/dL (30-150); UREA NITROGEN, BLOOD 32 mg/dL (7-18)
--- NOTE | 2021-12-27 06:10 | NUR ---
TELE/RN CLOSING NOTE PATIENT CURRENTLY RESTING IN BED. ALERT AND ORIENTED X 4. ABLE TO MAKE NEEDS KNOWN. DENIES PAIN AT THIS TIME. CONTINUES ON ROOM AIR WITH NO S/SX OF RESPIRATORY DISTRESS NOTED. IV ACCESS TO LEFT AC #20G INTACT, PATENT AND SALINE LOCKED. DENIES CHEST PAIN, TIGHTNESS OR HEADACHE AT THIS TIME. CONTINUES ON CARDIAC DIET WITH NO S/SX OF ASPIRATION NOTED. BEDSIDE COMMODE IN PLACE WITH PATIENT TRANSFERRING INDEPENDENTLY. CALL LIGHT WITHIN REACH. ASPIRATION, FALL AND SAFETY PRECAUTIONS MAINTAINED. WILL ENDORSE PLAN OF CARE TO ONCOMING SHIFT RN.
[2021-12-27 07:09] LABS: BAND % (MANUAL) 1 % (0.0-5.0); EOSINOPHILS % (MANUAL) 5 % (0-4); LYMPHOCYTES % (MANUAL) 19 % (16-48); MONOCYTES % (MANUAL) 9 % (0-11.0); NEUTROPHILS % (MANUAL) 65 (42-76)
--- NOTE | 2021-12-27 07:30 | NUR ---
RIVER DRIVER OPENING NOTES RECEIVED PATIENT ON BED AWAKE AND A/O X4. ON ROOM AIR TOLERATING WELL. NO SOB NOTED. NOT IN DISTRESS. WITH NO COMPLAINTS OF PAIN OR DISCOMFORT AT THIS TIME. WITH IV ACCESS AT THE LEFT AC G20 SALINE LOCKED, PATENT AND INTACT. ON TELE MONITOR CURRENTLY READING SINUS RHYTHM AT 65BPM WITH SOME PACs. SAFETY MEASURES IN PLACED. CALL LIGHT WITHIN REACH. BED ON LOWEST LOCKED POSITION, SIDE RAILS UP X2. WILL CONTINUE TO MONITOR.
[2021-12-27 08:22] VITALS: BP 139/60
[2021-12-27] MEDS: TIMOLOL 0.5% SOLN OPHTH 5 ML BOTTLE EACHEYE SCH ×2 (08:47→21:22)
[2021-12-27] MEDS: LEVOTHYROXINE SODIUM 50 MCG TABLET PO SCH (08:47)
[2021-12-27] MEDS: PANTOPRAZOLE 40 MG TABLET.DR PO SCH ×2 (08:47→17:14)
[2021-12-27] MEDS: CARVEDILOL 6.25 MG TABLET PO SCH ×2 (08:48→21:22)
[2021-12-27] MEDS: CLOPIDOGREL BISULFATE 75 MG TABLET PO SCH (08:50)
[2021-12-27] MEDS ORDERED: ASPIRIN 81 MG TAB.CHEW PO ONE (09:00)
[2021-12-27] MEDS ORDERED: LOSARTAN POTASSIUM 50 MG TABLET PO SCH (09:00)
[2021-12-27] MEDS ORDERED: ISOSORBIDE MONONITRATE (30MG) 30 MG TAB.SR.24H PO SCH (09:00)
[2021-12-27 12:00] VITALS: BP 139/68
--- NOTE | 2021-12-27 14:02 | NUR ---
RN NOTES RECEIVED HAND OFF REPORT FROM ALIDA NAGY. PATIENT IS STABLE, AWAKE IN BED. A/OX4. ON RA WITH BREATHING EVEN AND UNLABORED. DENIES CHEST PAIN AT THIS TIME. NO COMPLAINTS VERBALIZED. ON EXTERNAL TRUSS BUILDER READING SR 74 AT THIS TIME. L AC G#20 INTACT AND PATENT WITH NO FLUIDS RUNNING AT THIS TIME. SAFETY PRECAUTIONS IN PLACE. WILL CONTINUE TO MONITOR PATIENT
[2021-12-27 15:54] VITALS: BP 110/56
--- NOTE | 2021-12-27 19:22 | NUR ---
RN NOTES REPORT GIVEN TO COOKER PIE FILLING NURSE FOR CHRISTA
--- NOTE | 2021-12-27 19:30 | NUR ---
MILLINERY DEPARTMENT MANAGER OPENING NOTE RECEIVED PATIENT IN BED, WITH EYES CLOSED, EASY TO AROUSE. NO S/S OF APPARENT DISTRESS IN ROOM AIR. NO C/O PAIN NR DISCOMFORT AT THIS TIME. TELE MONITOR READING SR WITH 74 BPM. L. AC #20G IN SALINE LOCK. ORIENTED WITH THE USE OF CALL LIGHT. SAFETY IN PLACE. WILL CONTINUE WITH PATIENT'S PLAN OF CARE.
[2021-12-27 20:00] VITALS: BP 123/72
[2021-12-27] MEDS: ATORVASTATIN 40 MG TABLET PO SCH (21:22)
[2021-12-27] MEDS: FLUOXETINE HCL 20 MG CAPSULE PO SCH (21:23)
[2021-12-27] MEDS: BIMATOPROST 2.5 ML DROPS OP SCH (22:00)
[2021-12-28] VITALS: BP 145/61
[2021-12-28 04:00] VITALS: BP 112/62
[2021-12-28] MEDS: LEVOTHYROXINE SODIUM 50 MCG TABLET PO SCH (06:26)
--- NOTE | 2021-12-28 07:30 | NUR ---
RN Opening Notes Pt AO x4, able to express concerns, states no discomfort other than her constipation. Patients Vitals stable and no signs of distress. All safety precautions taken, table and call light within reach, bed at lowest position.
--- NOTE | 2021-12-28 07:30 | NUR ---
RN Opening Notes. PT AOx4, able to express concerns, asked for assistance to use bedside commode. Pt states she has not been able to use the bathroom, prune juice at bedside. All needs met, pt states no other issues. Bed at lowest position, call light and table within reach, all safety precautions taken.
--- NOTE | 2021-12-28 07:32 | NUR ---
RN CLOSING NEEDS ATTENDED, ENDORSED TO MORNING SHIFT RN FOR CONTINUITY OF CARE.
[2021-12-28 08:00] VITALS: BP 130/52
[2021-12-28] MEDS: PANTOPRAZOLE 40 MG TABLET.DR PO SCH ×2 (08:49→17:13)
[2021-12-28] MEDS: LOSARTAN POTASSIUM 50 MG TABLET PO SCH (08:49)
[2021-12-28] MEDS: ISOSORBIDE MONONITRATE (30MG) 30 MG TAB.SR.24H PO SCH (08:51)
[2021-12-28] MEDS: CLOPIDOGREL BISULFATE 75 MG TABLET PO SCH (08:51)
[2021-12-28] MEDS: TIMOLOL 0.5% SOLN OPHTH 5 ML BOTTLE EACHEYE SCH ×2 (08:57→23:05)
[2021-12-28] MEDS: CARVEDILOL 6.25 MG TABLET PO SCH ×2 (09:00→22:50)
--- NOTE | 2021-12-28 09:25 | NUR ---
RN NOTE-COREG Non-Admin COREG not administered HR not within parameters HR 55
[2021-12-28] MEDS ORDERED: NA PHOS,M-B/NA PHOS,DI-BA 1 EA ENEMA RC PRN (10:30)
[2021-12-28] MEDS ORDERED: BISACODYL SUPP (10 MG) 10 MG/SUPP.RECT SUPP.RECT RC PRN (10:30)
--- NOTE | 2021-12-28 12:44 | NUR ---
AVIONICS MANAGER NOTES PT SEEN AND EXAMINED BY DR. HANDLEY, PLAN OF CARE DISCUSSED WITH PT, VERBALIZED UNDERSTANDING.
[2021-12-28] MEDS ORDERED: MINERAL OIL 133 ML (PYXIS) 1 EA ENEMA RC ONE (15:00)
[2021-12-28 16:00] VITALS: BP 138/66
[2021-12-28] MEDS ORDERED: LACTULOSE 10 G/15 ML UDC (PYXIS) PO PRN (17:00)
--- NOTE | 2021-12-28 18:47 | NUR ---
RN Closing Notes PT AOx4, stares no discomfort, 3 bowel movements during shift, educated pt on importance of mobility, increasing hydration, and increase fiber rich foods to help with constipation. Pt able to express her concerns, bed and call light within reach, bed at lowest position, all safety precautions taken.
[2021-12-28 20:00] VITALS: BP 127/73
[2021-12-28] MEDS: BIMATOPROST 2.5 ML DROPS OP SCH (22:00)
[2021-12-28] MEDS: FLUOXETINE HCL 20 MG CAPSULE PO SCH (22:49)
[2021-12-28] MEDS: ATORVASTATIN 40 MG TABLET PO SCH (22:49)
--- NOTE | 2021-12-28 23:05 | NUR ---
MS/RN NOTE LUMIGAN EYE DROPS NOT AT BEDSIDE OR IN CASSETTE. WILL CONTACT IN-HOUSE PHARM IN AM.
--- NOTE | 2021-12-29 06:50 | NUR ---
TELE/RN NOTE PATIENT WITH C/O LEFT SIDED CHEST PAIN WITH TIGHTENING FEELING. BP 140/67 HR 90. NOTIFIED ROUGE PRESSER DIRECTOR RADIO NEWS ROD. ADMINISTERED PRN NITOR SL X 1. ORDERED STAT EKG.
--- NOTE | 2021-12-29 07:00 | NUR ---
TELE/RN NOTE PATIENT STATES PAIN FEEL LESS CONSTRICTING BUT "STILL THERE". CURRENT BP 121/59. ADMINISTERED SECOND DOSE NITRO. PATIENT CURRENTLY RESTING IN BED. ENDORSED TO AM SHIFT RN.
[2021-12-29] MEDS: NITROGLYCERIN 0.4 MG/TAB BOTTLE SL PRN ×2 (07:09→07:40)
--- NOTE | 2021-12-29 07:30 | NUR ---
THEATRICAL VARIETY AGENT OPENING NOTES PATIENT ON BED AWAKE , A/O X 4 AND ABLE TO MAKE NEEDS KNOWN , C/O OF CHEST PAIN FROM MUSIC PUBLISHER AND NITRO WAS GIVEN AND SHE SAID WITH SLIGHT HELP WITH THE PAIN NO SOB OR DISTRESS NOTED , LAC #20 G SL , BED IN LOWEST POSITION AND , V/S WAS CHECKED AND WITHIN NORMAL LIMITS AND WILL CONTINUE TO MONITOR
[2021-12-29 08:00] VITALS: BP 121/54
--- NOTE | 2021-12-29 08:30 | NUR ---
SOLUTION ANALYST NOTE EKG DONE AND RELAYED TO DR. HANDLEY. PATIENT IN STABLE CONDITION.
[2021-12-29] MEDS: LOSARTAN POTASSIUM 50 MG TABLET PO SCH (09:03)
[2021-12-29] MEDS: PANTOPRAZOLE 40 MG TABLET.DR PO SCH ×2 (09:04→16:58)
[2021-12-29] MEDS: ISOSORBIDE MONONITRATE (30MG) 30 MG TAB.SR.24H PO SCH (09:04)
[2021-12-29] MEDS: CLOPIDOGREL BISULFATE 75 MG TABLET PO SCH (09:05)
[2021-12-29] MEDS: CARVEDILOL 6.25 MG TABLET PO SCH ×2 (09:05→21:05)
[2021-12-29] MEDS: LEVOTHYROXINE SODIUM 50 MCG TABLET PO SCH (09:07)
[2021-12-29] MEDS: TIMOLOL 0.5% SOLN OPHTH 5 ML BOTTLE EACHEYE SCH ×2 (09:21→21:09)
[2021-12-29] MEDS ORDERED: oxyCODONE/APAP (5/325 MG) 1 UDTAB TABLET PO PRN (10:00)
[2021-12-29 12:18] LABS: BASOPHILS # (AUTO) 0.1 K/uL (0.0-0.2); BASOPHILS % (AUTO) 0.7 % (0.0-2.0); EOSINOPHILS % (AUTO) 2.9 % (0.0-6.0); HEMATOCRIT 36 % (33-45); HEMOGLOBIN 11.9 g/dL (11.5-14.8); LYMPHOCYTES # (AUTO) 0.8 K/uL (0.8-4.8); LYMPHOCYTES % (AUTO) 10.6 % (20.0-44.0); MEAN CORPUSCULAR HGB CONC 33 g/dl (31.0-36.0); MEAN CORPUSCULAR VOLUME 91 fL (82-100); MONOCYTES # (AUTO) 0.9 K/uL (0.1-1.30); MONOCYTES % (AUTO) 12.1 % (2.0-12.0); NEUTROPHILS # (AUTO) 5.6 K/uL (1.8-8.9); NEUTROPHILS % (AUTO) 73.7 % (43.0-81.0); PLATELET COUNT (AUTO) 195 K/uL (150-450); RED BLOOD CELL COUNT(AUTO) 3.92 MIL/uL (4.0-5.2); WHITE BLOOD COUNT (AUTO) 7.6 K/uL (4.3-11.0)
[2021-12-29 12:31] LABS: CALCIUM, SERUM 8.6 mg/dL (8.5-10.1); CARBON DIOXIDE 29 mmol/L (21-32); CHLORIDE 107 mmol/L (98-107); CREATININE 1.3 mg/dL (0.6-1.3); GLUCOSE 162 mg/dL (74-106); POTASSIUM 4.1 mmol/L (3.5-5.1); SODIUM SERUM 142 mmol/L (136-145); UREA NITROGEN, BLOOD 23 mg/dL (7-18)
--- NOTE | 2021-12-29 15:00 | NUR ---
RN NOTES FLEET ENEMA ORDER NOT GIVEN PATIENT HAD A BOWEL MOVEMENT X 2 CURATOR 12/29/2021
--- NOTE | 2021-12-29 19:03 | NUR ---
RN CLOSING NOTES PATIENT ON BED AWAKE , A/O X 4 AND ABLE TO MAKE NEEDS KNOWN , C/O OF CHEST PAIN FROM MAINTENANCE MILLWRIGHT AND NITRO WAS GIVEN AND SHE SAID WITH SLIGHT HELP WITH THE PAIN NO SOB OR DISTRESS NOTED , LAC #20 G SL , CONSENT SIGNED FOR CARDIAC 12/30 , INSTRUCTED FOR NPO POST MIDNIGHT , C/O PAIN NAD DISCOMFORT GIVEN WITH PERCOCET AND WITH HELP , TO COLLECT URINE AND PATIENT AWARE, ON MANAGER INSTRUMENTATION AND READING OF SB 59, WILL ENDORSED TO NEXT SHIFT
--- NOTE | 2021-12-29 19:15 | NUR ---
HELICOPTER REPAIRER OPENING NOTE PATIENT AWAKE IN BED, ALERT AND ORIENTED X4, PATIENT ABLE TO VERBALIZE NEEDS. NO SOB OR CARDIAC DISTRESS NOTED, ON ROOM AIR AND TOLERATING WELL. INSTRUCTED FOR NPO POST MIDNIGHT. PT VERBALIZED UNDERSTANDING. ON IV ACCESS ON LAC #20G SL PATENT AND INTACT. ON SUPERINTENDENT AUTOMOTIVE WITH TELE READING OF SB 58. DENIES PAIN OR DISCOMFORT AT THIS TIME. SAFETY MEASURES IN PLACE: CALL LIGHT WITHIN REACH, SIDE RAILS UP X2, BED LOCKED IN LOWEST POSITION, BED ALARM ON. KEPT RESTED AND COMFORTABLE. CALL LIGHT WITHIN REACH FOR HELP. WILL CONTINUE TO MONITOR THROUGHOUT THE SHIFT.
[2021-12-29 20:00] VITALS: BP 123/74
[2021-12-29] MEDS: ATORVASTATIN 40 MG TABLET PO SCH (21:05)
[2021-12-29] MEDS: FLUOXETINE HCL 20 MG CAPSULE PO SCH (21:05)
[2021-12-29] MEDS: BIMATOPROST 2.5 ML DROPS OP SCH (21:10)
[2021-12-29 21:59] LABS: BILIRUBIN,URINE NEGATIVE (NEGATIVE); COLOR,URINE YELLOW (YELLOW); LEUKOCYTE ESTERASE ,URINE NEGATIVE (NEGATIVE); NITRITE, URINE NEGATIVE (NEGATIVE); PROTEIN,URINE NEGATIVE (NEGATIVE); UGLUCOSE NEGATIVE (NEGATIVE); UROBILINOGEN,URINE 0.2 EU/dL (0.2)
[2021-12-29 23:30] LABS: CREATININE, URINE 257.4 MG/DL (30.0-125.0)
[2021-12-30] VITALS: BP_SYST 126; BP_SYST 128; BP_DIAS 52; BP_DIAS 58
[2021-12-30 04:00] VITALS: BP_SYST 126; BP_SYST 128; BP_DIAS 52; BP_DIAS 58
[2021-12-30] MEDS: LEVOTHYROXINE SODIUM 50 MCG TABLET PO SCH (06:05)
--- NOTE | 2021-12-30 06:21 | NUR ---
COMPOSITION WEATHERBOARD INSTALLER NOTE PATIENT BIZTALK CONSULTANT GOING TO SURGERY DEPT FOR LEFT HEART CATHETERIZATION. Addendum: 12/30/21 at 0655 by ANGEL PATEL RN PATIENT WAS PICKED UP BY 2 STAFF MEMBERS GOING TO SURGERY DEPT FOR LEFT HEART CATHETERIZATION. WILL ENDORSE TO DAY SHIFT NURSE.
[2021-12-30 06:31] LABS: BASOPHILS # (AUTO) 0.1 K/uL (0.0-0.2); BASOPHILS % (AUTO) 0.7 % (0.0-2.0); EOSINOPHILS % (AUTO) 3.8 % (0.0-6.0); HEMATOCRIT 36 % (33-45); HEMOGLOBIN 12.2 g/dL (11.5-14.8); LYMPHOCYTES # (AUTO) 0.9 K/uL (0.8-4.8); LYMPHOCYTES % (AUTO) 11.3 % (20.0-44.0); MEAN CORPUSCULAR HGB CONC 34 g/dl (31.0-36.0); MEAN CORPUSCULAR VOLUME 91 fL (82-100); MONOCYTES % (AUTO) 12.3 % (2.0-12.0); NEUTROPHILS # (AUTO) 5.6 K/uL (1.8-8.9); NEUTROPHILS % (AUTO) 71.9 % (43.0-81.0); PLATELET COUNT (AUTO) 176 K/uL (150-450); RED BLOOD CELL COUNT(AUTO) 3.97 MIL/uL (4.0-5.2); WHITE BLOOD COUNT (AUTO) 7.9 K/uL (4.3-11.0)
[2021-12-30] MEDS ORDERED: NITROGLYCERIN IN 5 % DEXTROSE 250 ML IV ONE (06:35)
[2021-12-30] MEDS ORDERED: LIDOCAINE HCL/MPF 1% 30 ML VIAL IJ ONE (06:35)
[2021-12-30] MEDS ORDERED: IODIXANOL 150 ML IV ONE (06:35)
[2021-12-30] MEDS ORDERED: IV SET PRIMARY PUMP SET 1 EA INFUS.SET MC ONE (06:36)
[2021-12-30] MEDS ORDERED: IV NS 0.9% 1,000 ML ONE (06:36)
[2021-12-30] MEDS ORDERED: FENTANYL PF 100MCG/2ML AMPUL ONE (06:36)
[2021-12-30] MEDS ORDERED: MIDAZOLAM HCL 2 MG/2ML VIAL ONE (06:37)
[2021-12-30 07:10] LABS: ALANINE AMINOTRANSFERASE 21 U/L (12-78); ALKALINE PHOSPHATASE 71 U/L (46-116); ASPARTATE AMINOTRANSFERASE 20 U/L (15-37); BILIRUBIN,TOTAL 0.8 mg/dL (0.2-1.0); CALCIUM, SERUM 8.4 mg/dL (8.5-10.1); CARBON DIOXIDE 27 mmol/L (21-32); CHLORIDE 107 mmol/L (98-107); CREATININE 1.5 mg/dL (0.6-1.3); GLUCOSE 103 mg/dL (74-106); MAGNESIUM 2.3 mg/dL (1.8-2.4); POTASSIUM 4.1 mmol/L (3.5-5.1); SODIUM SERUM 140 mmol/L (136-145); UREA NITROGEN, BLOOD 30 mg/dL (7-18)
--- NOTE | 2021-12-30 07:30 | NUR ---
RUBBER FLAP CUTTER OPENING NOTES RECEIVED REPORT FROM NOVEM RN FOR CHRISTA PATIENT IS AT FOOD ANALYST AT THIS TIME
--- NOTE | 2021-12-30 08:30 | NUR ---
RN NOTE Patient returned to 324-2. Vital signs as follows: BP 133/58, HR 55, RR 18, Temp 97.3, SPO2 95%. Patient is stable with TR band on right wrist, good capillary refill on right fingers. Will continue to monitor. Addendum: 12/30/21 at 1600 by WALE MAX RN ADD: TR band inflated 17cc.
--- NOTE | 2021-12-30 08:45 | NUR ---
RN NOTE Patient remains stable. Vital signs as follows: BP 153/54, HR 57, RR 19, Temp 97.5, SPO2 95%. TR band on right wrist is intact, good capillary refill on right fingers. Will continue to monitor.
[2021-12-30] MEDS: FUROSEMIDE 20 MG TABLET PO SCH (08:50)
[2021-12-30] MEDS: LOSARTAN POTASSIUM 50 MG TABLET PO SCH (08:50)
[2021-12-30] MEDS: PANTOPRAZOLE 40 MG TABLET.DR PO SCH ×2 (08:50→16:39)
[2021-12-30] MEDS: CLOPIDOGREL BISULFATE 75 MG TABLET PO SCH (08:50)
[2021-12-30] MEDS: CARVEDILOL 6.25 MG TABLET PO SCH ×2 (08:51→21:33)
[2021-12-30] MEDS: ISOSORBIDE MONONITRATE (30MG) 30 MG TAB.SR.24H PO SCH (08:51)
[2021-12-30] MEDS: TIMOLOL 0.5% SOLN OPHTH 5 ML BOTTLE EACHEYE SCH ×2 (08:58→21:38)
--- NOTE | 2021-12-30 09:00 | NUR ---
RN NOTE Patient remains stable. Vital signs as follows: BP 119/46, HR 57, RR 18, Temp 97.5, SPO2 95%. TR band on right wrist is intact, good capillary refill on right fingers. Will continue to monitor.
--- NOTE | 2021-12-30 09:15 | NUR ---
RN NOTE Patient remains stable. Vital signs as follows: BP 104/52, HR 61, RR 18, Temp 98, SPO2 93%. TR band on right wrist is intact, good capillary refill on right fingers. Will continue to monitor.
--- NOTE | 2021-12-30 09:30 | NUR ---
RN NOTE Patient remains stable. Vital signs as follows: BP 110/59, HR 59, RR 18, Temp 97.4, SPO2 94%. TR band on right wrist is intact, good capillary refill on right fingers. Will continue to monitor. Addendum: 12/30/21 at 1559 by WALE MAX RN ADD: TR band on right wrist deflated 3cc, no signs of bleeding noted.
--- NOTE | 2021-12-30 09:45 | NUR ---
RN NOTE 5cc air deflated from TR band, no signs of bleeding noted. Patient remains stable.
--- NOTE | 2021-12-30 10:00 | NUR ---
RN NOTE 5cc air deflated from TR band, no signs of bleeding noted. Patient remains stable.
--- NOTE | 2021-12-30 10:15 | NUR ---
RN NOTE 4cc air deflated from TR band, no signs of bleeding noted. Patient remains stable.
--- NOTE | 2021-12-30 19:03 | NUR ---
MEAT STOCKER CLOSING NOTES PATIENT RESTING COMFORTABLY IN BED. NO SIGNS OF DISTRESS OR DISCOMFORT NOTED AT THIS.ALERT ORIENTED X 4.BREATHING EVENLY AND UNLABORED. IV ACCESS LAC GAUGE 20 SL INTACT AND PATENT.ON TELE MONITORING 64 BPM SINUS RHYTHM .ALL DUE MEDS GIVEN AND NO ADVERSE REACTION NOTED . ALL NEEDS ATTENDED AND MET. SAFETY PRECAUTIONS IN PLACE BED IN LOW LOCK POSITION , SIDE RAILS UP X 2 AND CALL LIGHT WITHIN REACH . WILL ENDORSE TO MAINSTREAMING FACILITATOR NURSE FOR CHRISTA.
--- NOTE | 2021-12-30 20:29 | NUR ---
CENTRAL OFFICE INSPECTOR OPENING NOTES: RECEIVED PATIENT AWAKE IN BED, BED IN LOW POSITION CALL LIGHTS WITHIN REACH, NO COMPLAIN OF PAIN AND DISCOMFORT AT THIS TIME, ON ROOM AIR SATURATING WELL, PATIENT IS A/OX4 ABLE TO MAKE NEEDS KNOWN, ON TELE MONITOR, SR-[id number], IV LN AT LAC#20SL,PATIENT KEPT CLEAN AND DRY ALL NEEDS MET WILL CONTINUE TO MONITOR..
[2021-12-30] MEDS: ATORVASTATIN 40 MG TABLET PO SCH (21:32)
[2021-12-30] MEDS: FLUOXETINE HCL 20 MG CAPSULE PO SCH (21:33)
[2021-12-30] MEDS: BIMATOPROST 2.5 ML DROPS OP SCH (22:00)
--- NOTE | 2021-12-30 23:07 | NUR ---
RN NOTES: MEDICATION EYE DROPS BLAINE NOT GIVEN MEDICATION NOT AVAILABLE WILL FOLLOW UP.
[2021-12-30 23:43] VITALS: BP 114/61
[2021-12-31 04:00] VITALS: BP 135/63
--- NOTE | 2021-12-31 06:16 | NUR ---
TELECOM ANALYST CLOSING NOTES: PATIENT SLEEP IN BED COMFORTABLY, BE DIN LOW POSITION CALL LIGHTS WITHIN REACH, NO COMPLAIN OF PAIN AND DISCOMFORT AT THIS TIME, ON ROOM AIR SATURATING WELL, ON TELE [id number] WITH PVC, PATIENT IS ON NPO, PATIENT KEPT CLEAN AND DRY ALL NEEDS MET ENDORSE TO INCOMING SHIFT.
--- NOTE | 2021-12-31 07:30 | NUR ---
PT AOx4, VSS, states no discomfort, no signs of distress, received report from RN, pt pending transfer. Pt aware, agrees with plan. All safety precautions taken, bed at lowest position, call light and table within reach.
[2021-12-31] MEDS: PANTOPRAZOLE 40 MG TABLET.DR PO SCH (07:58)
[2021-12-31] MEDS: LEVOTHYROXINE SODIUM 50 MCG TABLET PO SCH (07:58)
[2021-12-31 08:13] VITALS: BP 126/53
[2021-12-31 09:00] VITALS: BP 126/53
[2021-12-31] MEDS: ISOSORBIDE MONONITRATE (30MG) 30 MG TAB.SR.24H PO SCH (09:00)
[2021-12-31] MEDS: TIMOLOL 0.5% SOLN OPHTH 5 ML BOTTLE EACHEYE SCH (09:00)
[2021-12-31] MEDS: CLOPIDOGREL BISULFATE 75 MG TABLET PO SCH (09:00)
[2021-12-31] MEDS: LOSARTAN POTASSIUM 50 MG TABLET PO SCH (09:00)
[2021-12-31] MEDS: FUROSEMIDE 20 MG TABLET PO SCH (09:00)
[2021-12-31] MEDS: CARVEDILOL 6.25 MG TABLET PO SCH (09:00)
--- NOTE | 2021-12-31 10:20 | NUR ---
SUSHI CHEF NOTES PT AWAKE, ALERT AND ORIENTED, NO COMPLAINT OF PAIN OR ANY DISCOMFORT, NOT IN DISTRESS, PT FOR TRANSFER TO [facility] FOR CARDIAC CATH, DISCHARGE AND MEDICATION INSTRUCTIONS PROVIDED TO PT, VERBALIZED UNDERSTANDING, BELONGINGS ACCOUNTED FOR, TRANSFER PAPERS SIGNED BY PT, REPORT GIVEN TO HIEN IRWIN OF [facility] DAY SURGERY, PICKED UP BY 2 AMBULANCE PERSONNEL, LEFT VIA [facility] IN STABLE CONDITION.
== END 2021-12-31 09:30 | disposition short-term general hospital (02) | DRG 286 ==
LOC: ER 17:14 → TELE 21:31
PROVIDERS: ADMIT Nurse Practitioner Acute Care
PROC: 4A023N7 Measurement of Cardiac Sampling and Pressure, Left Heart, Percutaneous Approach (ICD-10-PCS; principal; 2021-12-30)
PROC: B211YZZ Fluoroscopy of Multiple Coronary Arteries using Other Contrast (ICD-10-PCS; 2021-12-30)
DX: I25.110 Atherosclerotic heart disease of native coronary artery with unstable angina pectoris (principal); N17.0 Acute kidney failure with tubular necrosis; Z68.41 Body mass index [BMI] 40.0-44.9, adult; I50.32 Chronic diastolic (congestive) heart failure; I11.0 Hypertensive heart disease with heart failure; E03.9 Hypothyroidism, unspecified; E11.9 Type 2 diabetes mellitus without complications; E78.5 Hyperlipidemia, unspecified; G89.4 Chronic pain syndrome; K59.00 Constipation, unspecified; Z86.73 Personal history of transient ischemic attack (TIA), and cerebral infarction without residual deficits; G44.009 Cluster headache syndrome, unspecified, not intractable; Z79.82 Long term (current) use of aspirin; M79.7 Fibromyalgia; I25.2 Old myocardial infarction; F32.A Depression, unspecified; E66.01 Morbid (severe) obesity due to excess calories; F41.9 Anxiety disorder, unspecified; Z71.3 Dietary counseling and surveillance; E88.09 Other disorders of plasma-protein metabolism, not elsewhere classified; Z95.5 Presence of coronary angioplasty implant and graft; G47.33 Obstructive sleep apnea (adult) (pediatric); Z20.822 Contact with and (suspected) exposure to COVID-19; H40.9 Unspecified glaucoma; G62.9 Polyneuropathy, unspecified
CPT/HCPCS: 36415; 70450-TC; 71045-TC; 76770-TC; 80048-TC; 80053-TC; 80061-TC; 80076-TC; 82570-TC; 82962-TC; 83735-TC; 83880; 84100-TC; 84300-TC; 84439-TC; 84443-TC; 84484-TC; 85025-TC; 85610-TC; 87081-TC; 93307-TC; C1769; C9803; G0378; G0500; J1644; J2250; J3010; J3490; J7030; Q9967

== ENCOUNTER 2022-02-02 00:33 | Emergency (ER) | payer MEDICARE ==
[~2022-02-02] VITALS: Ht 167.6 cm; Wt 96.6 kg
[~2022-02-02 00:33] MED LIST changes: -ASPI-1169 PO; +HYDR12.55 PO; -VANC125C11 PO
--- NOTE | 2022-02-02 01:10 | NUR ---
[id number] FROM HOME C/O N/V, STARTED TODAY IN THE AM AND HAS PROGRESSIVELY WORSTENED.PO ZOFRAN GIVEN BY EMS PRIVACY COMPLIANCE MANAGER. PT AWAKE AND ALERT BREATHING EVEN AND UNLABORED. PLACED ON MONITOR AND PULSE OX AND V/S WNL. Addendum: 02/02/22 at 0901 by MFRAUSTO Patient discharged to home in stable condition. Written and verbal after care instructions given. Patient verbalizes understanding of instruction.
[2022-02-02] MEDS ORDERED: ONDANSETRON HCL/PF 4 MG/2 ML VIAL ONE (01:15)
--- NOTE | 2022-02-02 01:22 | NUR ---
LAB AT BEDSIDE
--- NOTE | 2022-02-02 01:25 | NUR ---
IV ESTABLISHED RAC #20G S/L
[2022-02-02] MEDS ORDERED: ONDANSETRON HCL/PF 4 MG/2 ML VIAL IVP ONE (01:30)
[2022-02-02 01:49] LABS: BASOPHILS # (AUTO) 0.1 K/uL (0.0-0.2); EOSINOPHILS % (AUTO) 3.7 % (0.0-6.0); HEMATOCRIT 37 % (33-45); HEMOGLOBIN 12.1 g/dL (11.5-14.8); LYMPHOCYTES % (AUTO) 14.1 % (20.0-44.0); MEAN CORPUSCULAR HGB CONC 33 g/dl (31.0-36.0); MEAN CORPUSCULAR VOLUME 94 fL (82-100); MONOCYTES % (AUTO) 13.5 % (2.0-12.0); NEUTROPHILS # (AUTO) 4.9 K/uL (1.8-8.9); NEUTROPHILS % (AUTO) 67.7 % (43.0-81.0); PLATELET COUNT (AUTO) 186 K/uL (150-450); RED BLOOD CELL COUNT(AUTO) 3.94 MIL/uL (4.0-5.2); WHITE BLOOD COUNT (AUTO) 7.2 K/uL (4.3-11.0)
[2022-02-02 01:59] LABS: CALCIUM, SERUM 8.4 mg/dL (8.5-10.1); CARBON DIOXIDE 29 mmol/L (21-32); CHLORIDE 110 mmol/L (98-107); CREATININE 1.6 mg/dL (0.6-1.3); GLUCOSE 121 mg/dL (74-106); POTASSIUM 3.9 mmol/L (3.5-5.1); SODIUM SERUM 145 mmol/L (136-145); UREA NITROGEN, BLOOD 30 mg/dL (7-18)
[2022-02-02 02:12] LABS: ALANINE AMINOTRANSFERASE 21 U/L (12-78); ALBUMIN 3.4 g/dL (3.4-5.0); ALKALINE PHOSPHATASE 111 U/L (46-116); ASPARTATE AMINOTRANSFERASE 16 U/L (15-37); BILIRUBIN,DIRECT 0.1 mg/dL (0.0-0.2); BILIRUBIN,TOTAL 0.5 mg/dL (0.2-1.0); TOTAL PROTEIN, SERUM 6.4 g/dL (6.4-8.2)
[2022-02-02] MEDS ORDERED: PANTOPRAZOLE 40 MG VIAL ONE (02:19)
[2022-02-02] MEDS ORDERED: LIDOCAINE VISCOUS 2% UD 15 ML UDC ONE (02:19)
[2022-02-02] MEDS ORDERED: MAG HYDROX/AL HYDROX/SIMETH 30 ML UDC ONE (02:19)
[2022-02-02] MEDS ORDERED: LIDOCAINE VISCOUS 2% UD 15 ML UDC MM ONE (02:30)
[2022-02-02] MEDS ORDERED: PANTOPRAZOLE 40 MG VIAL IV ONE (02:30)
[2022-02-02] MEDS ORDERED: MAG HYDROX/AL HYDROX/SIMETH 30 ML UDC PO ONE (02:30)
[2022-02-02] MEDS ORDERED: ONDA4TAB11 PO (03:44)
[2022-02-02] MEDS ORDERED: PANT40TA2 PO (03:44)
--- NOTE | 2022-02-02 04:06 | NUR ---
LEFT VOICE MESSAGE TO LUIS (DAUGHTER) [phone] REGARDING D/C
--- NOTE | 2022-02-02 05:11 | NUR ---
PT WILL BE TAKEN HOME VIA [facility] AT 0900.
--- NOTE | 2022-02-02 05:14 | NUR ---
IV removed. Catheter intact and site benign. Pressure and 4x4 applied to site. No bleeding noted.
--- NOTE | 2022-02-02 08:57 | NUR ---
CALLED [facility], NEW ETA [phone]
[2022-02-02 09:01] VITALS: BP 119/68
--- NOTE | 2022-02-02 09:02 | NUR ---
PT'S DTR AT BEDSIDE
== END 2022-02-02 09:02 | disposition home or self-care (01) ==
LOC: ER 00:36
DX: R11.0 Nausea (principal); K21.9 Gastro-esophageal reflux disease without esophagitis; I11.0 Hypertensive heart disease with heart failure; I50.9 Heart failure, unspecified; E03.9 Hypothyroidism, unspecified; Z88.6 Allergy status to analgesic agent; Z79.899 Other long term (current) drug therapy
CPT/HCPCS: 99285; 96374; 71045; 96375; 93005 ×2; 85025; 80048; 83690; 80076; 36415; 84484 ×2; 85730; 83880; J2405; C9113

== ENCOUNTER 2023-07-24 14:48 | Inpatient (IN) | payer MEDICARE ==
[~2023-07-24] VITALS: Ht 167.6 cm; Wt 96.2 kg
[~2023-07-24 14:48] MED LIST changes: +ONDA4TAB11 PO
[2023-07-24 15:39] LABS: BASOPHILS % (AUTO) 0.4 % (0.0-2.0); EOSINOPHILS # (AUTO) 0.2 K/uL (0.0-0.7); EOSINOPHILS % (AUTO) 2.5 % (0.0-6.0); HEMATOCRIT 40 % (33-45); HEMOGLOBIN 13.3 g/dL (11.5-14.8); LYMPHOCYTES # (AUTO) 0.9 K/uL (0.8-4.8); LYMPHOCYTES % (AUTO) 10.5 % (20.0-44.0); MEAN CORPUSCULAR HEMOGLOBIN 31 PG (26.0-33.0); MEAN CORPUSCULAR HGB CONC 33 g/dl (31.0-36.0); MEAN CORPUSCULAR VOLUME 93 fL (82-100); MONOCYTES % (AUTO) 12.5 % (2.0-12.0); NEUTROPHILS # (AUTO) 6.1 K/uL (1.8-8.9); NEUTROPHILS % (AUTO) 74.1 % (43.0-81.0); PLATELET COUNT (AUTO) 178 K/uL (150-450); RED BLOOD CELL COUNT(AUTO) 4.35 MIL/uL (4.0-5.2); RED CELL DISTRIBUTION WIDTH 13.7 % (11.5-15.0); WHITE BLOOD COUNT (AUTO) 8.3 K/uL (4.3-11.0)
[2023-07-24] MEDS: ENALAPRILAT DIHYD. (2.5MG/2ML) 1.25 MG/ML VIAL IV ONE (15:43)
[2023-07-24] MEDS: ASPIRIN 325 MG TABLET PO ONE (15:44)
[2023-07-24] MEDS: NITROGLYCERIN PACKET 1 GM PACKET TD ONE (15:45)
[2023-07-24 15:53] LABS: CALCIUM, SERUM 8.8 mg/dL (8.5-10.1); CARBON DIOXIDE 25 mmol/L (21-32); CHLORIDE 106 mmol/L (98-107); CREATININE 1.2 mg/dL (0.6-1.3); GLUCOSE 99 mg/dL (74-106); POTASSIUM 4.4 mmol/L (3.5-5.1); SODIUM SERUM 141 mmol/L (136-145); UREA NITROGEN, BLOOD 24 mg/dL (7-18)
[2023-07-24 15:59] LABS: ALANINE AMINOTRANSFERASE 17 U/L (12-78); ALBUMIN 3.4 g/dL (3.4-5.0); ALKALINE PHOSPHATASE 86 U/L (46-116); ASPARTATE AMINOTRANSFERASE 19 U/L (15-37); BILIRUBIN,DIRECT 0.1 mg/dL (0.0-0.2); BILIRUBIN,TOTAL 0.6 mg/dL (0.2-1.0); TOTAL PROTEIN, SERUM 6.5 g/dL (6.4-8.2)
[2023-07-24] MEDS ORDERED: ISOS60TA72 PO (17:22)
[2023-07-24] MEDS ORDERED: BUPR-54 PO (17:22)
[2023-07-24] MEDS ORDERED: BUSP5TAB3 PO (17:22)
[2023-07-24] MEDS ORDERED: MORPHINE SULFATE INJ 2 MG/ML DISP.SYRIN ONE (19:46)
[2023-07-24] MEDS: MORPHINE SULFATE INJ 2 MG/ML DISP.SYRIN IV ONE (19:52)
[2023-07-24 21:00] VITALS: BP 112/86; TEMP 98.2; O2SAT 97
[2023-07-24] MEDS: ENOXAPARIN SODIUM 40 MG/0.4 ML DISP.SYRIN SQ SCH (22:59)
[2023-07-24] MEDS ORDERED: NITROGLYCERIN 0.4 MG/TAB BOTTLE SL PRN (23:00)
[2023-07-24] MEDS ORDERED: ZOLPIDEM TARTRATE 5 MG TABLET PO PRN (23:00)
[2023-07-24] MEDS ORDERED: ONDANSETRON HCL/PF 4 MG/2 ML VIAL IVP PRN (23:00)
[2023-07-24] MEDS ORDERED: MORPHINE SULFATE INJ 2 MG/ML DISP.SYRIN IV PRN (23:00)
[2023-07-24] MEDS ORDERED: MAG HYDROX/AL HYDROX/SIMETH 30 ML UDC PO PRN (23:00)
[2023-07-24] MEDS ORDERED: HYDROCODONE/APAP 5/325MG TABLET PO PRN (23:00)
[2023-07-24] MEDS ORDERED: Z GUARD REMEDY 4 OZ OINT TP PRN (23:00)
[2023-07-24] MEDS ORDERED: MAGNESIUM HYDROXIDE 30 ML UDC PO PRN (23:00)
[2023-07-24] MEDS ORDERED: ACETAMINOPHEN 325 MG TABLET PO PRN (23:00)
[2023-07-25] VITALS: BP 110/72; TEMP 97.8; O2SAT 96
[2023-07-25 04:00] VITALS: BP 110/68; TEMP 98.1; O2SAT 97
[2023-07-25 08:00] VITALS: BP 120/68; TEMP 97.1; O2SAT 98
[2023-07-25 08:13] LABS: BASOPHILS # (AUTO) 0.1 K/uL (0.0-0.2); BASOPHILS % (AUTO) 0.8 % (0.0-2.0); EOSINOPHILS # (AUTO) 0.2 K/uL (0.0-0.7); EOSINOPHILS % (AUTO) 3.8 % (0.0-6.0); HEMATOCRIT 38 % (33-45); HEMOGLOBIN 12.7 g/dL (11.5-14.8); LYMPHOCYTES # (AUTO) 0.9 K/uL (0.8-4.8); LYMPHOCYTES % (AUTO) 14.8 % (20.0-44.0); MEAN CORPUSCULAR HEMOGLOBIN 30 PG (26.0-33.0); MEAN CORPUSCULAR HGB CONC 33 g/dl (31.0-36.0); MEAN CORPUSCULAR VOLUME 91 fL (82-100); MONOCYTES # (AUTO) 0.9 K/uL (0.1-1.30); MONOCYTES % (AUTO) 15.5 % (2.0-12.0); NEUTROPHILS % (AUTO) 65.1 % (43.0-81.0); PLATELET COUNT (AUTO) 178 K/uL (150-450); RED BLOOD CELL COUNT(AUTO) 4.17 MIL/uL (4.0-5.2); RED CELL DISTRIBUTION WIDTH 13.8 % (11.5-15.0); WHITE BLOOD COUNT (AUTO) 6.1 K/uL (4.3-11.0)
[2023-07-25 08:46] LABS: CALCIUM, SERUM 8.7 mg/dL (8.5-10.1); CARBON DIOXIDE 24 mmol/L (21-32); CHLORIDE 109 mmol/L (98-107); GLUCOSE 90 mg/dL (74-106); MAGNESIUM 2.2 mg/dL (1.8-2.4); PHOSPHORUS 3.5 mg/dL (2.5-4.9); POTASSIUM 4.2 mmol/L (3.5-5.1); SODIUM SERUM 143 mmol/L (136-145); UREA NITROGEN, BLOOD 23 mg/dL (7-18)
[2023-07-25 08:47] LABS: CHOLESTEROL 119 mg/dL (<200); HDL CHOLESTEROL 45 mg/dL (40-60); LDL 58 mg/dL (0-99); THYROID STIMULATING HORMONE 2.473 uIU/mL (0.358-3.74); TRIGLYCERIDES 126 mg/dL (30-150)
[2023-07-25] MEDS: ASPIRIN EC 81 MG TABLET.DR PO SCH (08:48)
[2023-07-25] MEDS: BUPROPION XL 150 MG TAB.ER.24 PO SCH (08:48)
[2023-07-25] MEDS: CLOPIDOGREL BISULFATE 75 MG TABLET PO SCH (08:48)
[2023-07-25] MEDS: ISOSORBIDE MONONITRATE (30MG) 30 MG TAB.SR.24H PO SCH (08:48)
[2023-07-25] MEDS: LEVOTHYROXINE SODIUM 50 MCG TABLET PO SCH (08:49)
[2023-07-25] MEDS: LOSARTAN POTASSIUM 50 MG TABLET PO SCH (08:49)
[2023-07-25] MEDS: CARVEDILOL 6.25 MG TABLET PO SCH (08:49)
[2023-07-25] MEDS: PANTOPRAZOLE 40 MG TABLET.DR PO SCH (08:50)
[2023-07-25] MEDS: busPIRone 5 MG TABLET PO SCH (08:50)
[2023-07-25 12:00] VITALS: BP 122/73; TEMP 97.1; O2SAT 98
[2023-07-25] MEDS ORDERED: NITROGLYCERIN 0.4 MG/TAB BOTTLE ONE (13:34)
[2023-07-25] MEDS ORDERED: METOPROLOL TARTRATE INJ 5 MG/5 ML AMPUL ONE ×2 (13:34→13:56)
[2023-07-25] MEDS ORDERED: IV NS 0.9% 0 ML IV ONE (13:34)
[2023-07-25] MEDS ORDERED: CT SWABBABLE VALVE TRANS SET 1 EA INFUS.SET MC ONE ×2 (13:34→13:56)
[2023-07-25] MEDS ORDERED: IOHEXOL-350 100 ML VIAL IV ONE ×2 (13:35→13:56)
[2023-07-25] MEDS ORDERED: IV NS 0.9% 250 ML IV ONE (13:56)
[2023-07-25] MEDS: METOPROLOL TARTRATE INJ 5 MG/5 ML AMPUL IVP PRN (14:15)
[2023-07-25] MEDS: NITROGLYCERIN 0.4 MG/TAB BOTTLE SL ONE (15:17)
[2023-07-25 16:00] VITALS: BP 114/45; TEMP 98.4; O2SAT 94
[2023-07-25 20:00] VITALS: BP 108/49; TEMP 98.2; O2SAT 94
[2023-07-26] VITALS: BP 132/49; TEMP 98.4; O2SAT 96
[2023-07-26 04:00] VITALS: BP 115/49; TEMP 98; O2SAT 95
[2023-07-26 07:03] LABS: BASOPHILS # (AUTO) 0.1 K/uL (0.0-0.2); BASOPHILS % (AUTO) 0.8 % (0.0-2.0); EOSINOPHILS # (AUTO) 0.3 K/uL (0.0-0.7); EOSINOPHILS % (AUTO) 3.8 % (0.0-6.0); HEMATOCRIT 37 % (33-45); HEMOGLOBIN 12.3 g/dL (11.5-14.8); LYMPHOCYTES % (AUTO) 14.2 % (20.0-44.0); MEAN CORPUSCULAR HEMOGLOBIN 31 PG (26.0-33.0); MEAN CORPUSCULAR HGB CONC 34 g/dl (31.0-36.0); MEAN CORPUSCULAR VOLUME 92 fL (82-100); MONOCYTES % (AUTO) 14.2 % (2.0-12.0); NEUTROPHILS # (AUTO) 4.5 K/uL (1.8-8.9); PLATELET COUNT (AUTO) 177 K/uL (150-450); RED CELL DISTRIBUTION WIDTH 13.9 % (11.5-15.0); WHITE BLOOD COUNT (AUTO) 6.7 K/uL (4.3-11.0)
[2023-07-26 07:16] LABS: CALCIUM, SERUM 8.6 mg/dL (8.5-10.1); CARBON DIOXIDE 23 mmol/L (21-32); CHLORIDE 108 mmol/L (98-107); CREATININE 1.4 mg/dL (0.6-1.3); GLUCOSE 92 mg/dL (74-106); MAGNESIUM 2.4 mg/dL (1.8-2.4); PHOSPHORUS 3.5 mg/dL (2.5-4.9); POTASSIUM 4.1 mmol/L (3.5-5.1); SODIUM SERUM 139 mmol/L (136-145); UREA NITROGEN, BLOOD 23 mg/dL (7-18)
[2023-07-26 08:00] VITALS: BP 152/57; TEMP 97.3; O2SAT 97
[2023-07-26] MEDS: VALSARTAN 80 MG TABLET PO SCH (10:24)
[2023-07-26 12:00] VITALS: BP 124/94; TEMP 97.5; O2SAT 96
[2023-07-26] MEDS ORDERED: ATOR40TA PO (12:43)
[2023-07-26] MEDS ORDERED: VALS80TA31 PO (12:43)
[2023-07-26 16:00] VITALS: BP 116/58; TEMP 97.5; O2SAT 97
[2023-07-26 16:55] VITALS: BP 116/58
[2023-07-26] MEDS: CARVEDILOL 6.25 MG TABLET PO SCH (16:55)
== END 2023-07-26 20:14 | disposition home or self-care (01) | DRG 303 ==
LOC: ER 14:55 → TELE1 19:54 → MEDSG1 07-26 14:21
PROVIDERS: ATTEND Nurse Practitioner Family
DX: I25.118 Atherosclerotic heart disease of native coronary artery with other forms of angina pectoris (principal); I50.32 Chronic diastolic (congestive) heart failure; I11.0 Hypertensive heart disease with heart failure; E66.9 Obesity, unspecified; E78.5 Hyperlipidemia, unspecified; F32.A Depression, unspecified; F41.9 Anxiety disorder, unspecified; G47.33 Obstructive sleep apnea (adult) (pediatric); G89.4 Chronic pain syndrome; H40.9 Unspecified glaucoma; K59.00 Constipation, unspecified; M79.7 Fibromyalgia; Z95.5 Presence of coronary angioplasty implant and graft; Z86.73 Personal history of transient ischemic attack (TIA), and cerebral infarction without residual deficits; E03.9 Hypothyroidism, unspecified; R51.9 Headache, unspecified; I25.2 Old myocardial infarction; Z73.3 Stress, not elsewhere classified; Z79.899 Other long term (current) drug therapy; Z91.048 Other nonmedicinal substance allergy status; Z68.34 Body mass index [BMI] 34.0-34.9, adult; E11.40 Type 2 diabetes mellitus with diabetic neuropathy, unspecified; R53.82 Chronic fatigue, unspecified
CPT/HCPCS: 36415; 70450-TC; 71045-TC; 75574; 80048-TC; 80061-TC; 80076-TC; 83735-TC; 84100-TC; 84443-TC; 84484-TC; 85025-TC; 93307-TC; A6403; G0378; J1650; J2270; J3490; J7050; Q9967